=== PATIENT | female | born 1960 | race Caucasian/White ===

== ENCOUNTER 2020-01-15 09:45 | Emergency (ER) | payer MEDICARE, MEDICAID ==
[~2020-01-15] VITALS: Ht 170.2 cm; Wt 109.1 kg
[~2020-01-15 09:45] MED LIST: ALBU18HF2 INH; AMOX-422 PO; DIPH50CA37 PO; DIVA500T9 PO; LIDO1ADH67 TOP; OXYB5TAB16 PO; PALI6TAB PO; PROL2.5I IM; RIVA10TA PO; TRAM50TA2 PO
[2020-01-15 11:18] LABS: BASOPHILS # (AUTO) 0.1 X10'3 (0-0.2); BASOPHILS % (AUTO) 0.7 % (0-1); EOSINOPHILS # (AUTO) 0.1 X10'3 (0-0.9); EOSINOPHILS % (AUTO) 0.8 % (0-6); HEMATOCRIT 36.6 % (35.0-45.0); HEMOGLOBIN 12.4 g/dl (12.0-16.0); LYMPHOCYTES # (AUTO) 1.9 X10'3 (1.1-4.8); LYMPHOCYTES % (AUTO) 21.1 % (21-51); MEAN CORPUSCULAR HEMOGLOBIN 32.6 PG (27.0-31.0); MEAN CORPUSCULAR HGB CONC 33.8 g/dL (33.0-36.5); MEAN CORPUSCULAR VOLUME 96.4 FL (78-98); MEAN PLATELET VOLUME 8.7 FL (7.4-10.4); MONOCYTES # (AUTO) 1.2 X10'3 (0-0.9); MONOCYTES % (AUTO) 13.1 % (2-12); NEUTROPHILS # (AUTO) 5.6 X10'3 (1.8-7.7); NEUTROPHILS % (AUTO) 64.3 % (42-75); PLATELET COUNT 201 X10'3 (140-440); RED CELL DISTRIBUTION WIDTH 13.7 % (11.5-14.5); WHITE BLOOD COUNT 8.8 X10'3 (4.5-11.0)
--- NOTE | 2020-01-15 11:20 | NUR ---
pt asked for food. pt is redirectable but jumps from topic to topic. has moments of verbal outbursts and then moments of being quiet and calm. pt given yong cortés and a coloring page. pt has stated over and over she wants to go home and she needs to be gone by the for her daughter's birthday. also she is "supposed to have a nurse visit today".
[2020-01-15 11:27] LABS: CLARITY,URINE CLEAR (Clear); COLOR,URINE YELLOW (Yellow); GLUCOSE, URINE NEGATIVE (Neg); KETONES,URINE NEGATIVE (Neg); LEUKOCYTE ESTERASE ,URINE NEGATIVE (Neg); NITRITES, URINE NEGATIVE (Neg); OCCULT BLOOD,URINE NEGATIVE (Neg); PH,URINE 5.5 (4.8-8.0); PROTEIN,URINE NEGATIVE (Neg); UROBILINOGEN,URINE 0.2 E.U/dL (0.2-1.0)
[2020-01-15 11:28] LABS: UA COLLECTION TYPE CLN CATCH MIDSTREAM
[2020-01-15 11:36] LABS: ALANINE AMINOTRANSFERASE 13 U/L (12-78); ALBUMIN 3.3 G/DL (3.4-5.0); ALKALINE PHOSPHATASE 54 IU/L (46-116); ANION GAP 11 (8-16); ASPARTATE AMINO TRANSFERASE 11 U/L (10-37); BILIRUBIN,TOTAL 0.3 MG/DL (0.1-1.0); BLOOD UREA NITROGEN 26 MG/DL (7-18); BUN/CREATININE RATIO 14.3 (6.6-38.0); CALCIUM 8.7 MG/DL (8.5-10.1); CHLORIDE 99 MMOL/L (99-107); CREATININE 1.82 MG/DL (0.40-0.90); ETHANOL < 0.010 GM/DL (0.0-0.010); GLUCOSE 85 MG/DL (70-104); POTASSIUM 4.4 MMOL/L (3.5-5.1); SODIUM 134 MMOL/L (135-145); TOTAL CARBON DIOXIDE 23.7 MMOL/L (24-32); TOTAL PROTEIN 6.7 G/DL (6.4-8.2); eGFR 28 ML/MIN
[2020-01-15 11:46] LABS: URINE AMPHETAMINE SCREEN POSITIVE (Neg); URINE BARBITUATE SCREEN NEGATIVE (Neg); URINE BENZODIAZEPINES SCREEN NEGATIVE (Neg); URINE CANNABINOID SCREEN NEGATIVE (Neg); URINE COCAINE SCREEN NEGATIVE (Neg); URINE METHADONE SCREEN NEGATIVE (Neg); URINE OPIATE SCREEN NEGATIVE (Neg); URINE PHENCYCLIDINE SCREEN NEGATIVE (Neg)
--- NOTE | 2020-01-15 12:47 | NUR ---
pt has put on her makeup in room. using lipstick on her cheeks and lips.
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
[2020-01-15] MEDS ORDERED: nicotine 21mg patch - 24 hr TD ONE (14:30)
--- NOTE | 2020-01-15 14:37 | NUR ---
PT GIVEN A NEW BRIEF AND ASSISTED WITH PUTTING IT ON. PT IS UP AND DOWN IN HER ROOM. SHE TALKS VERY LOUDLY USING PROFANITY OFTEN.
--- NOTE | 2020-01-15 15:06 | NUR ---
[facility] HERE AND TALKING WITH PT
[2020-01-15] MEDS ORDERED: OLANZapine 5mg rapidly disint. tablet PO ONE (15:35)
[2020-01-15] MEDS ORDERED: LORazepam 2 mg/ml vial IM ONE ×2 (15:35→19:30)
[2020-01-15] MEDS ORDERED: PALI6TAB PO (15:48)
[2020-01-15] MEDS ORDERED: RIVA10TA PO (15:48)
[2020-01-15] MEDS ORDERED: ALBU18HF2 INH (15:48)
[2020-01-15] MEDS ORDERED: PROL2.5I IM (15:48)
[2020-01-15] MEDS ORDERED: OXYB5TAB16 PO (15:48)
[2020-01-15] MEDS ORDERED: DIVA500T9 PO (15:48)
--- NOTE | 2020-01-15 17:08 | NUR ---
PT UP TO THE BATHROOM AGAIN.
--- NOTE | 2020-01-15 17:22 | NUR ---
pt is more calm and not yelling when talking any more.
[2020-01-15] MEDS ORDERED: fluphenazine decanoate**IM** 25mg/ml inj. IM SCH (18:10)
--- NOTE | 2020-01-15 18:37 | NUR ---
the prolixin med is only taken every other sunday. med not given at this time.
--- NOTE | 2020-01-15 19:11 | NUR ---
pt has upper full dentures
--- NOTE | 2020-01-15 19:24 | NUR ---
pt is starting to yell again and now being verbally threatening to hurt staff by saying she will punch and kick them. pt is using profanity and saying she doesn't want to be told what to do and to stay in the bed. keeps asking for coffee but not giving the pt coffee at this time of day. pt also states she wants to go to sleep.
[2020-01-15] MEDS ORDERED: ziprasidone IM 20mg inj **IM only IM ONE (19:30)
[2020-01-15] MEDS ORDERED: diphenhydrAMINE 50 mg/ml inj IM ONE (19:30)
--- NOTE | 2020-01-15 21:21 | NUR ---
pt states she takes invega 6mg at night time. she has not had her dose today. she is also asking for crackers and broth to keep her from having leg cramps. pt encouraged to lower her voice as to not disturbe others nearby
[2020-01-15] MEDS: PALIPERIDONE 3 MG TAB.ER.24 PO SCH (21:40)
[2020-01-15] MEDS: divalproex sod 250mg ER (24-hour) tablet PO SCH (21:40)
[2020-01-15] MEDS ORDERED: quetiapine 100mg tablet PO ONE (23:03)
--- NOTE | 2020-01-15 23:04 | NUR ---
PT YELLING AND CURSING AT STAFF. SHE IS SPEAKING IN [place] INTERMITTANTLY. DR SEGOVIA MADE AWARE. TOMMY ORDERED TO HELP PT REST
--- NOTE | 2020-01-16 04:13 | NUR ---
pt woke up cursing at staff. she had an incontinenent episode while sleeping. she was given wipes for belinda care and given new scrubs. pt instructed to stay in bed.
[2020-01-16] MEDS: oxybutynin 5mg tablet PO SCH (07:41)
[2020-01-16] MEDS: rivaroxaban 10mg tablet PO SCH (07:41)
[2020-01-16] MEDS: divalproex sod 250mg ER (24-hour) tablet PO SCH ×3 (07:42→20:21)
--- NOTE | 2020-01-16 10:42 | NUR ---
assumed care while RN is on 15 min break
--- NOTE | 2020-01-16 11:34 | NUR ---
pt is resting in her room no concerns at this time
--- NOTE | 2020-01-16 12:00 | NUR ---
PT WALKING AROUND WITH HER WALKER
--- NOTE | 2020-01-16 13:00 | NUR ---
PT IS WALKING AROUND. TALKING WITH STAFF
--- NOTE | 2020-01-16 14:00 | NUR ---
PT SITTING ON HER BED DRINKING COFFEE
--- NOTE | 2020-01-16 15:00 | NUR ---
NO CONCERNS. PT IS WALKING AROUND TALKING WITH STAFF
--- NOTE | 2020-01-16 16:00 | NUR ---
PT IS SLEEPING
--- NOTE | 2020-01-16 17:00 | NUR ---
NO CONCERNS AT THIS TIME
--- NOTE | 2020-01-16 18:04 | NUR ---
PT IS RESTING IN HER ROOM. NO CONCERNS
[2020-01-16] MEDS ORDERED: nicotine 21mg patch - 24 hr TD ONE (19:00)
--- NOTE | 2020-01-16 20:07 | NUR ---
Pt. walking around the unit, yelling and screaming, with very labile mood. She goes from very pleasant to being agitated in rapid changing fashion. Distraction provided by staff, but pt. easily escalated. made aware, received orders for ativan 2mg PO, benadryl 50mg PO and haldol 5mg PO, in addition to her routine HS meds.
[2020-01-16] MEDS ORDERED: LORazepam 1 MG tablet PO ONE (20:10)
[2020-01-16] MEDS ORDERED: diphenhydrAMINE 25mg capsule PO ONE (20:10)
[2020-01-16] MEDS ORDERED: haloperidol 5mg tablet PO ONE (20:10)
[2020-01-16] MEDS: PALIPERIDONE 3 MG TAB.ER.24 PO SCH (20:22)
[2020-01-16] MEDS: nystatin 15 GM powder TP SCH (20:22)
[2020-01-16] MEDS ORDERED: quetiapine 100mg tablet PO SCH (21:00)
[2020-01-16] MEDS ORDERED: zolpidem 5mg tablet PO ONE (23:10)
--- NOTE | 2020-01-16 23:21 | NUR ---
Pt. requested "something for sleep." States that she took ambien 5mg at home. MD made aware. New order received to given x1 dose of ambien 5mg. Pt medicated with this med and quiet environment will be ensured.
--- NOTE | 2020-01-17 00:24 | NUR ---
Pt. used walker to go to the bathroom at this time. Supervision provided. Pt. requested juice/drink and was provided per her request. She states that the ambien has helped. She returned to bed and about to return to sleep at this time.
--- NOTE | 2020-01-17 01:28 | NUR ---
Pt. sleeping comfortably now. Even chest rise apparent.
--- NOTE | 2020-01-17 02:29 | NUR ---
Pt. utilized the bathroom x1 within the last hour. She resumed with sleep soon after. No s/s discomfort noted at this time.
--- NOTE | 2020-01-17 03:31 | NUR ---
Pt. continues to sleep. Appears to be comfortable. No concerns at this time.
--- NOTE | 2020-01-17 04:47 | NUR ---
Pt. continues to sleep.
--- NOTE | 2020-01-17 05:55 | NUR ---
Pt. soiled her bed/clothes. Assisted to the bathroom at this time for hygiene. Complete bed change done by staff.
--- NOTE | 2020-01-17 06:59 | NUR ---
pt asking about breakfast. gave estimate time on arrival, no distress noted. will continue to monitor.
[2020-01-17] MEDS: divalproex sod 250mg ER (24-hour) tablet PO SCH ×2 (07:55→13:49)
[2020-01-17] MEDS: rivaroxaban 10mg tablet PO SCH (07:55)
[2020-01-17] MEDS: nystatin 15 GM powder TP SCH ×2 (07:55→13:50)
[2020-01-17] MEDS ORDERED: nicotine 21mg patch - 24 hr TD SCH (08:00)
--- NOTE | 2020-01-17 09:03 | NUR ---
pt laying in bed no distress noted. will continue to monitor.
[2020-01-17] MEDS: oxybutynin 5mg tablet PO SCH (09:21)
--- NOTE | 2020-01-17 10:04 | NUR ---
pt sleeping comfortably in bed no distress noted,will cont to monitor.
--- NOTE | 2020-01-17 11:41 | NUR ---
pt sleeping at this time ,no distress noted ,RR unlabored and even ,will cont to monitor.
--- NOTE | 2020-01-17 12:05 | NUR ---
pt up in bed using restroom at this time.pt requested for coffee informed the size maker is not working ,pt stated she can have tea,alex tea made for pt .
--- NOTE | 2020-01-17 12:17 | NUR ---
pt up in bed sitting up on her walker using phone saying "i have really bad inscsion from c section and a colostomy bag .
--- NOTE | 2020-01-17 13:15 | NUR ---
pt screaming and shouting in hallway ,redirected to stay quiet as pt is making things worse as pt was aggravating the situation while bed 23 got aggressive and started kicking ,pt redirected to her room and now receving breathing tx,but pt still shouting and screaming while taking her breathing tx.
[2020-01-17] MEDS: albuterol 2.5 MG/3 ML nebule NEB PRN ×2 (13:16→18:59)
--- NOTE | 2020-01-17 13:54 | NUR ---
pt meds given and nystatin powder applied by the pt ,given warm blanket to the pt ,pt stated that she is going to sleep.
--- NOTE | 2020-01-17 14:43 | NUR ---
Assumed care of patient
--- NOTE | 2020-01-17 16:10 | NUR ---
Patient given warm prune juice to help with her constipation at her request.
--- NOTE | 2020-01-17 16:29 | NUR ---
[facility] called for pt updated face sheet ,will send it .p
[2020-01-17] MEDS ORDERED: traMADol 50MG tablet PO ONE (16:40)
--- NOTE | 2020-01-17 16:45 | NUR ---
Marielos banks in [facility] - 01/17/20 at [address] marshall
--- NOTE | 2020-01-17 16:53 | NUR ---
Pt screaming if she doesn't get a PRN she will leave
--- NOTE | 2020-01-17 16:54 | NUR ---
notified dr smith that pt is acting out hitting her foot on the side rails also stated that she is screaming and primary nurse want to have po meds orders to calm pt down,dr smith said she is busy with some other pt with high heart rate and she will see miss amaya later.notified primary nurse handsel rn.
--- NOTE | 2020-01-17 17:19 | NUR ---
Pt continues to talk to herself about moving out of town, cracking her back, and contacting her daughter
[2020-01-17 17:59] VITALS: BP 121/70
[2020-01-19] MEDS ORDERED: fluphenazine decanoate**IM** 25mg/ml inj. IM SCH (09:00)
[2020-01-20] MEDS ORDERED: PALI6TAB PO (09:42)
[2020-01-20] MEDS ORDERED: NICO-687 TD (09:42)
[2020-01-20] MEDS ORDERED: DIVA500T9 PO (09:42)
== END 2020-01-17 19:12 ==
LOC: ER 09:46
DX: F29 Unspecified psychosis not due to a substance or known physiological condition (principal); F98.9 Unspecified behavioral and emotional disorders with onset usually occurring in childhood and adolescence; F79 Unspecified intellectual disabilities; E66.01 Morbid (severe) obesity due to excess calories; Z79.899 Other long term (current) drug therapy; Z88.8 Allergy status to other drugs, medicaments and biological substances
CPT/HCPCS: 36415; 80053; 80305; 80320; 81003; 84443; 85025; 94640; 96372; 99285; J1200; J2060; J3486; Q0163; 94760

== ENCOUNTER 2020-03-22 22:27 | Emergency (ER) | payer MEDICARE, OTHER ==
[~2020-03-22] VITALS: Ht 172.7 cm; Wt 100.0 kg
[~2020-03-22 22:27] MED LIST changes: -AMOX-422 PO; -DIPH50CA37 PO; -LIDO1ADH67 TOP; +NICO-687 TD; -TRAM50TA2 PO
[2020-03-23 00:19] LABS: BASOPHILS % (AUTO) 0.6 % (0-1); EOSINOPHILS # (AUTO) 0.2 X10'3 (0-0.9); EOSINOPHILS % (AUTO) 2.7 % (0-6); HEMATOCRIT 31.4 % (35.0-45.0); LYMPHOCYTES % (AUTO) 33.8 % (21-51); MEAN CORPUSCULAR HEMOGLOBIN 33.6 PG (27.0-31.0); MEAN CORPUSCULAR HGB CONC 34.9 g/dL (33.0-36.5); MEAN CORPUSCULAR VOLUME 96.2 FL (78-98); MEAN PLATELET VOLUME 8.9 FL (7.4-10.4); MONOCYTES # (AUTO) 0.9 X10'3 (0-0.9); MONOCYTES % (AUTO) 14.1 % (2-12); NEUTROPHILS % (AUTO) 48.8 % (42-75); PLATELET COUNT 201 X10'3 (140-440); RED BLOOD COUNT 3.26 X10'6 (4.20-5.60); RED CELL DISTRIBUTION WIDTH 13.9 % (11.5-14.5); WHITE BLOOD COUNT 6.1 X10'3 (4.5-11.0)
[2020-03-23 00:32] LABS: ALBUMIN 2.6 G/DL (3.4-5.0); ANION GAP 7 (8-16); BILIRUBIN,TOTAL 0.2 MG/DL (0.1-1.0); BLOOD UREA NITROGEN 21 MG/DL (7-18); BUN/CREATININE RATIO 18.6 (6.6-38.0); CALCIUM 8.2 MG/DL (8.5-10.1); CHLORIDE 105 MMOL/L (99-107); CREATININE 1.13 MG/DL (0.40-0.90); GLUCOSE 94 MG/DL (70-104); POTASSIUM 4.3 MMOL/L (3.5-5.1); SODIUM 140 MMOL/L (135-145); TOTAL CARBON DIOXIDE 27.6 MMOL/L (24-32); TOTAL PROTEIN 5.7 G/DL (6.4-8.2); eGFR 49 ML/MIN
[2020-03-23 00:33] LABS: ALANINE AMINOTRANSFERASE 16 U/L (12-78); ALBUMIN/GLOBULIN RATIO 0.8 (1.1-1.5); ALKALINE PHOSPHATASE 56 IU/L (46-116); ASPARTATE AMINO TRANSFERASE 13 U/L (10-37); ETHANOL < 0.010 GM/DL (0.0-0.010)
--- NOTE | 2020-03-23 00:39 | NUR ---
CALLED DILLAN AND SPOKE WITH HER SHE IS A FRIEND OF THE PATIENTS BUT HAS NO INFORMATION ON WHO CARES FOR THE PATIENT. SHE SAID WE NEED TO CALL RECORDING STUDIO SET UP WORKER TO FIND OUT WHO CARES FOR THE PATIENT. SHE DID SAY THAT SHE WOULD COME PICK PT UP BUT CANNOT CARE FOR PT. ER MADE AWARE
[2020-03-23 01:34] LABS: CLARITY,URINE CLEAR (Clear); COLOR,URINE YELLOW (Yellow); GLUCOSE, URINE NEGATIVE (Neg); KETONES,URINE NEGATIVE (Neg); LEUKOCYTE ESTERASE ,URINE TRACE (Neg); NITRITES, URINE NEGATIVE (Neg); OCCULT BLOOD,URINE NEGATIVE (Neg); PH,URINE 6.5 (4.8-8.0); PROTEIN,URINE NEGATIVE (Neg); UROBILINOGEN,URINE 0.2 E.U/dL (0.2-1.0)
[2020-03-23 01:36] LABS: UA COLLECTION TYPE NON-SPECIFIED
[2020-03-23 01:46] LABS: URINE AMPHETAMINE SCREEN NEGATIVE (Neg); URINE BARBITUATE SCREEN NEGATIVE (Neg); URINE BENZODIAZEPINES SCREEN NEGATIVE (Neg); URINE CANNABINOID SCREEN NEGATIVE (Neg); URINE COCAINE SCREEN NEGATIVE (Neg); URINE METHADONE SCREEN NEGATIVE (Neg); URINE OPIATE SCREEN NEGATIVE (Neg); URINE PHENCYCLIDINE SCREEN NEGATIVE (Neg)
[2020-03-23 02:00] VITALS: BP 113/85
[2020-03-23 02:07] LABS: BACTERIA,URINE 1+ /HPF (Neg); RBC,URINE 0-2 /HPF (0-2); SQUAMOUS EPITHELIAL CELL,UR FEW /LPF (FEW)
== END 2020-03-23 03:59 | disposition home or self-care (01) ==
LOC: ER 22:28
DX: T14.8XXA Other injury of unspecified body region, initial encounter (principal); J44.9 Chronic obstructive pulmonary disease, unspecified; F17.200 Nicotine dependence, unspecified, uncomplicated; F15.90 Other stimulant use, unspecified, uncomplicated; Z72.89 Other problems related to lifestyle; Z88.8 Allergy status to other drugs, medicaments and biological substances; Z79.01 Long term (current) use of anticoagulants; Z79.899 Other long term (current) drug therapy; W19.XXXA Unspecified fall, initial encounter; Y93.89 Activity, other specified; Y92.89 Other specified places as the place of occurrence of the external cause; Y99.8 Other external cause status
CPT/HCPCS: 36415; 73030; 73564; 80053; 80305; 80320; 81001; 85025; 99284

== ENCOUNTER 2020-06-14 18:07 | Emergency (ER) | payer MEDICARE, MEDICAID ==
[~2020-06-14] VITALS: Ht 175.3 cm; Wt 125.0 kg
[2020-06-14 18:10] VITALS: BP 136/74
== END 2020-06-14 21:06 | disposition left against medical advice (07) ==
LOC: ER 18:08
DX: M25.561 Pain in right knee (principal); Z53.21 Procedure and treatment not carried out due to patient leaving prior to being seen by health care provider

== ENCOUNTER 2020-12-12 11:26 | Emergency (ER) | payer MEDICARE, MEDICAID ==
[~2020-12-12] VITALS: Ht 165.1 cm; Wt 90.9 kg
[2020-12-12] MEDS ORDERED: diphenhydrAMINE 50 mg/ml inj IM ONE (11:35)
[2020-12-12] MEDS ORDERED: LORazepam 2 mg/ml vial IM ONE (11:35)
[2020-12-12] MEDS ORDERED: haloperidol lactate 5mg/ml inj IM ONE (11:35)
--- NOTE | 2020-12-12 12:15 | NUR ---
Patient was angry and swinging at staff. RN started documentation in room computer but patient was so vulgar RN had to finish in the hallway. Patient called RN 'You rosendo khalil Mexican beaner...and on and on. Janice to monitor.
--- NOTE | 2020-12-12 12:30 | NUR ---
RN removed lower ext restraints and lab humberto her blood. Patient denies needing to urinate. RN gave patient ice water. Patient just 10 minutes prior had refused lab draw. Continue to [facility].
--- NOTE | 2020-12-12 12:58 | NUR ---
Patient's restraints were removed. Patient sleeping soundly. No distress observed. Continue to monitor.
[2020-12-12] MEDS ORDERED: OXYB10TA4 PO (13:16)
[2020-12-12] MEDS ORDERED: PALI234D IM (13:16)
[2020-12-12] MEDS ORDERED: FURO-150 PO (13:16)
[2020-12-12 13:20] LABS: ALANINE AMINOTRANSFERASE 28 U/L (12-78); ALBUMIN 3.7 G/DL (3.4-5.0); ALKALINE PHOSPHATASE 81 IU/L (46-116); ANION GAP 13 (8-16); ASPARTATE AMINO TRANSFERASE 22 U/L (10-37); BILIRUBIN,TOTAL 0.4 MG/DL (0.1-1.0); BLOOD UREA NITROGEN 34 MG/DL (7-18); BUN/CREATININE RATIO 14.7 (6.6-38.0); CALCIUM 8.9 MG/DL (8.5-10.1); CHLORIDE 99 MMOL/L (99-107); CREATININE 2.32 MG/DL (0.40-0.90); GLUCOSE 88 MG/DL (70-104); SODIUM 136 MMOL/L (135-145); TOTAL CARBON DIOXIDE 24.1 MMOL/L (24-32); TOTAL PROTEIN 7.3 G/DL (6.4-8.2); eGFR 21 ML/MIN
[2020-12-12 13:22] LABS: ACETAMINOPHEN < 2.0 UG/ML (10-30); ETHANOL < 0.010 GM/DL (0.0-0.010); VALPROATE < 3.0 UG/ML (50-100)
[2020-12-12 13:24] LABS: POTASSIUM 2.9 MMOL/L (3.5-5.1)
--- NOTE | 2020-12-12 13:25 | NUR ---
Rn observed a fungal infection in inguinal area. Slight on the right and a little worse on the left. RN advised RIVERA Uribe. Continue to monitor.
[2020-12-12 13:55] LABS: BASOPHILS % (AUTO) 0.7 % (0-1); EOSINOPHILS # (AUTO) 0.3 X10'3 (0-0.9); EOSINOPHILS % (AUTO) 3.7 % (0-6); HEMATOCRIT 34.5 % (35.0-45.0); HEMOGLOBIN 11.3 g/dl (12.0-16.0); LYMPHOCYTES # (AUTO) 1.7 X10'3 (1.1-4.8); LYMPHOCYTES % (AUTO) 23.8 % (21-51); MEAN CORPUSCULAR HEMOGLOBIN 30.7 PG (27.0-31.0); MEAN CORPUSCULAR HGB CONC 32.9 g/dL (33.0-36.5); MEAN CORPUSCULAR VOLUME 93.3 FL (78-98); MEAN PLATELET VOLUME 9.6 FL (7.4-10.4); MONOCYTES # (AUTO) 1.3 X10'3 (0-0.9); MONOCYTES % (AUTO) 17.7 % (2-12); NEUTROPHILS % (AUTO) 54.1 % (42-75); PLATELET COUNT 208 X10'3 (140-440); RED CELL DISTRIBUTION WIDTH 14.7 % (11.5-14.5); WHITE BLOOD COUNT 7.3 X10'3 (4.5-11.0)
--- NOTE | 2020-12-12 13:56 | NUR ---
Patient continues to sleep. No distress observed. Continue to monitor.
[2020-12-12] MEDS ORDERED: potassium Cl 20 mEq SR tablet PO ONE (14:00)
[2020-12-12] MEDS ORDERED: potassium Cl 10 mEq/100mL bag IV ONE (14:00)
[2020-12-12] MEDS ORDERED: normal saline 1000ml 1,000 ML IV ONE (14:00)
[2020-12-12] MEDS ORDERED: PROL2.5I IM (14:08)
--- NOTE | 2020-12-12 14:30 | NUR ---
RN attempting IV line. Patient appears dehydrated. Attempted 2 lines without success. Charge Nurse Denise attempted 2 lines without success. Noticed patient had urinated on herself. Patient sleeping heavily and snoring. Continue to monitor.
--- NOTE | 2020-12-12 15:20 | NUR ---
RN cleaned patient up and changed her linen. RN had to straight cath due to sedation. Patient dressed in clean gown and placed chucks underneath her with draw sheet. Continue to monitor.
[2020-12-12 15:45] LABS: CLARITY,URINE SLIGHTLY CLOUDY (Clear); COLOR,URINE STRAW (Yellow); GLUCOSE, URINE NEGATIVE (Neg); KETONES,URINE NEGATIVE (Neg); LEUKOCYTE ESTERASE ,URINE SMALL (Neg); NITRITES, URINE POSITIVE (Neg); OCCULT BLOOD,URINE NEGATIVE (Neg); PH,URINE 5.5 (4.8-8.0); PROTEIN,URINE NEGATIVE (Neg); UROBILINOGEN,URINE 0.2 E.U/dL (0.2-1.0)
--- NOTE | 2020-12-12 15:45 | NUR ---
IV line completed by MEGHA Shepard. Patient tolerated well. RN started K+ and normal saline. Patient tolerating with a little difficulty. Snoring but oxygen sat at 97%. Continue to monitor.
[2020-12-12 15:47] LABS: UA COLLECTION TYPE STRAIGHT CATH
[2020-12-12 15:51] LABS: BACTERIA,URINE 3+ /HPF (Neg); MUCUS STRANDS NONE SEEN /LPF (Neg); RBC,URINE 0-2 /HPF (0-2); SQUAMOUS EPITHELIAL CELL,UR FEW /LPF (FEW); WBC CLUMPS,URINE MODERATE /HPF (NEGATIVE); WBC,URINE 30-50 /HPF (0-4)
[2020-12-12 15:57] LABS: URINE AMPHETAMINE SCREEN POSITIVE (Neg); URINE BARBITUATE SCREEN NEGATIVE (Neg); URINE BENZODIAZEPINES SCREEN NEGATIVE (Neg); URINE CANNABINOID SCREEN NEGATIVE (Neg); URINE COCAINE SCREEN NEGATIVE (Neg); URINE METHADONE SCREEN NEGATIVE (Neg); URINE OPIATE SCREEN NEGATIVE (Neg); URINE PHENCYCLIDINE SCREEN NEGATIVE (Neg)
[2020-12-12] MEDS ORDERED: CefTRIAXone/D5W-Rocephin 1gm 50 ML IV ONE (16:15)
--- NOTE | 2020-12-12 16:40 | NUR ---
Dr Chilel evaluating patient.
[2020-12-12] MEDS ORDERED: ondansetron/PF 4mg/2ml inj IV PRN (16:55)
[2020-12-12] MEDS ORDERED: potassium Cl 40MEQ/1/2NS 520ml 520 ML IV PRN ×2 (16:55)
[2020-12-12] MEDS ORDERED: acetaminophen 325mg tablet PO PRN (16:55)
[2020-12-12] MEDS ORDERED: magnesium 2GM in 50ml NS 50 ML IV PRN (16:55)
[2020-12-12] MEDS ORDERED: magnesium hydroxide 30ml (MOM) UD suspension PO PRN (16:55)
[2020-12-12] MEDS ORDERED: magnesium Cl slow-release 64mg tablet PO PRN (16:55)
[2020-12-12] MEDS ORDERED: magnesium 4gm in 100ml NS 100 ML IV PRN (16:55)
[2020-12-12] MEDS ORDERED: mag hydrox/Alum hydrox/simeth 30ml oral suspension PO PRN (16:55)
[2020-12-12] MEDS ORDERED: potassium Cl 20 mEq SR tablet PO PRN ×2 (16:55)
[2020-12-12] MEDS ORDERED: LORazepam 2 mg/ml vial IV PRN (17:00)
[2020-12-12] MEDS ORDERED: haloperidol lactate 5mg/ml inj IM PRN (17:00)
[2020-12-12] MEDS: normal saline 1000ml 1,000 ML IV SCH (17:42)
[2020-12-12 17:56] LABS: CREATINE KINASE 293 U/L (26-192)
--- NOTE | 2020-12-12 18:17 | NUR ---
Patient's fluid is running. Patient is dry. No distress observed. Patient will wake up and mumble and go back to sleep. Patient has long HX of Bipolar d/o with meth use. Patient has UTI and low K+/dehydration. Patient was very dry on arrival and looks much better now. Patient pending bed in PCU. Patient is aware she is being admitted. Continue to [facility].
[2020-12-12] MEDS: K and/or MAG REPLACEMENT MC SCH (20:00)
[2020-12-12] MEDS: clotrimazole topical cream 15gm tube TP SCH (20:00)
[2020-12-12] MEDS ORDERED: furosemide 20MG tablet PO SCH (20:00)
[2020-12-12] MEDS ORDERED: POTASSIUM BICARB 20meq eff tab 20 MEQ TABLET.EFF PO ONE (20:15)
[2020-12-12] MEDS: heparin, porcine 5000 units/ml vial SQ SCH (20:43)
[2020-12-12] MEDS: oxybutynin 5mg tablet PO SCH (20:48)
--- NOTE | 2020-12-12 22:52 | NUR ---
patient was put on comode and patient had a bowel movement.
[2020-12-13] MEDS: normal saline 1000ml 1,000 ML IV SCH ×2 (02:53→12:55)
--- NOTE | 2020-12-13 07:00 | NUR ---
O/N rn floated down not comfortable taking MH assignments including this pt. Jeremiah Davila notified and PCU traveler rn will take her place.
[2020-12-13] MEDS: K and/or MAG REPLACEMENT MC SCH ×2 (08:00→20:00)
[2020-12-13] MEDS ORDERED: CefTRIAXone/D5W-Rocephin 1gm 50 ML IV SCH (08:00)
--- NOTE | 2020-12-13 09:00 | NUR ---
Assessed patient and assisted with care. patient in line of sight of staff at this time. patient comfortable will all needs met at this time
[2020-12-13 09:23] LABS: ANION GAP 11 (8-16); BLOOD UREA NITROGEN 25 MG/DL (7-18); BUN/CREATININE RATIO 19.8 (6.6-38.0); CALCIUM 8.7 MG/DL (8.5-10.1); CHLORIDE 103 MMOL/L (99-107); CREATININE 1.26 MG/DL (0.40-0.90); GLUCOSE 80 MG/DL (70-104); MAGNESIUM 1.7 MG/DL (1.5-2.4); SODIUM 137 MMOL/L (135-145); TOTAL CARBON DIOXIDE 23.3 MMOL/L (24-32); eGFR 43 ML/MIN
[2020-12-13] MEDS: heparin, porcine 5000 units/ml vial SQ SCH ×2 (09:59→22:07)
[2020-12-13] MEDS: clotrimazole topical cream 15gm tube TP SCH ×2 (10:00→20:00)
[2020-12-13] MEDS: oxybutynin 5mg tablet PO SCH ×2 (10:00→22:09)
--- NOTE | 2020-12-13 10:18 | NUR ---
Per [facility] pt can have food. Addendum: 12/13/20 at 1018 by LYDIA EC: [facility]
--- NOTE | 2020-12-13 10:21 | NUR ---
OJ provided; meal ordered
[2020-12-13 11:05] LABS: BASOPHILS % (AUTO) 0.8 % (0-1); EOSINOPHILS # (AUTO) 0.2 X10'3 (0-0.9); EOSINOPHILS % (AUTO) 4.1 % (0-6); HEMATOCRIT 42.2 % (35.0-45.0); HEMOGLOBIN 13.9 g/dl (12.0-16.0); LYMPHOCYTES # (AUTO) 0.9 X10'3 (1.1-4.8); LYMPHOCYTES % (AUTO) 17.1 % (21-51); MEAN CORPUSCULAR HEMOGLOBIN 31.1 PG (27.0-31.0); MEAN CORPUSCULAR VOLUME 94.2 FL (78-98); MEAN PLATELET VOLUME 9.8 FL (7.4-10.4); MONOCYTES # (AUTO) 0.4 X10'3 (0-0.9); MONOCYTES % (AUTO) 7.8 % (2-12); NEUTROPHILS # (AUTO) 3.9 X10'3 (1.8-7.7); NEUTROPHILS % (AUTO) 70.2 % (42-75); PLATELET COUNT 244 X10'3 (140-440); RED BLOOD COUNT 4.48 X10'6 (4.20-5.60); RED CELL DISTRIBUTION WIDTH 14.8 % (11.5-14.5); WHITE BLOOD COUNT 5.6 X10'3 (4.5-11.0)
--- NOTE | 2020-12-13 11:42 | NUR ---
[facility], Abdiel: He will place patient on 5150 hold, follow up with [facility] conservatorship, upon medical clearance.
--- NOTE | 2020-12-13 13:39 | NUR ---
PT'S FRIEND ALLYSON
--- NOTE | 2020-12-13 13:43 | NUR ---
PT'S NEIGHBOR DILLAN
--- NOTE | 2020-12-13 15:50 | NUR ---
PT REQUESTING FOOD. SO I BROUGHT HER A SANDWICH AND DECAF COFFEE.
--- NOTE | 2020-12-13 16:02 | NUR ---
PT TALKING ON THE PHONE WITH HER FRIEND TANK. HER PHONE NUMBER IS [phone].
--- NOTE | 2020-12-13 18:11 | NUR ---
PT'S SON, SLADE
--- NOTE | 2020-12-13 18:24 | NUR ---
PT MOVED FROM ER BED 9 TO OVERFLOW BED 23
[2020-12-13] MEDS ORDERED: lactobacillus rhamnosus 10,000 MMU CELLS/CAPSULE PO SCH (20:00)
[2020-12-13] MEDS ORDERED: LORazepam 1 MG tablet PO PRN (21:00)
[2020-12-13] MEDS ORDERED: temazepam 15mg capsule PO PRN (21:05)
[2020-12-13 23:03] VITALS: BP 112/79
[2020-12-13] MEDS ORDERED: CLOT15CR35 TOP (23:36)
[2020-12-13] MEDS ORDERED: TEMA15CA5 PO (23:36)
[2020-12-13] MEDS ORDERED: LACT1CAP26 PO (23:36)
== END 2020-12-13 23:14 ==
LOC: ER 11:26 → ED HOLD 16:52 → UNDOADMIN 16:52 → UNDODISIN 12-13 23:14
DX: E87.6 Hypokalemia (principal); N17.0 Acute kidney failure with tubular necrosis; F29 Unspecified psychosis not due to a substance or known physiological condition
CPT/HCPCS: 96365; 96367; 96368; 96372; 96375; 99285; J0696; J1200; J1630; J1644; J2060; J3480; J7030; 36415; 80048; 80053; 80164; 80305; 80320; 80329; 81001; 82550; 83735; 84443; 85025; 96361; G0378

== ENCOUNTER 2021-02-24 18:07 | Inpatient (IN) | payer MEDICARE, MEDICAID ==
[~2021-02-24] VITALS: Ht 172.7 cm; Wt 92.6 kg
[~2021-02-24 18:07] MED LIST changes: -ALBU18HF2 INH; +CLOT15CR35 TOP; +DIVA500T2 PO; -DIVA500T9 PO; +NICO-668 BC; +OXYB10TA4 PO; -OXYB5TAB16 PO; +PALI156D IM; -PALI6TAB PO; -PROL2.5I IM; -RIVA10TA PO; +RIVA20TA PO; +TEMA15CA5 PO
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
[2021-02-24] MEDS ORDERED: ALBU8HFA PO (19:31)
[2021-02-24] MEDS ORDERED: HYDR-3686 PO (19:31)
[2021-02-24] MEDS ORDERED: DIVA-76 PO (19:38)
[2021-02-24] MEDS ORDERED: FURO-150 PO (19:38)
[2021-02-24] MEDS ORDERED: TEMA15CA PO (19:38)
[2021-02-24] MEDS ORDERED: temazepam 15mg capsule PO PRN (20:00)
[2021-02-24] MEDS ORDERED: paliperidone palmitate 156 mg/ml inj.**IM only IM ONE (20:00)
[2021-02-24] MEDS: hydrOXYzine 25 MG tablet PO PRN (20:32)
[2021-02-24] MEDS: divalproex sodium 500mg tablet.DR PO SCH (20:32)
--- NOTE | 2021-02-24 20:46 | NUR ---
The patient was assisted up to the bathroom and she gave a urine sample. She ambulated with a walker
--- NOTE | 2021-02-24 21:03 | NUR ---
Lab is at the bedside drawing her labs
[2021-02-24 21:12] LABS: CLARITY,URINE CLEAR (Clear); COLOR,URINE YELLOW (Yellow); GLUCOSE, URINE NEGATIVE (Neg); KETONES,URINE NEGATIVE (Neg); LEUKOCYTE ESTERASE ,URINE TRACE (Neg); NITRITES, URINE NEGATIVE (Neg); OCCULT BLOOD,URINE NEGATIVE (Neg); PROTEIN,URINE NEGATIVE (Neg); UROBILINOGEN,URINE 0.2 E.U/dL (0.2-1.0)
[2021-02-24 21:25] LABS: URINE AMPHETAMINE SCREEN POSITIVE (Neg); URINE BARBITUATE SCREEN NEGATIVE (Neg); URINE BENZODIAZEPINES SCREEN NEGATIVE (Neg); URINE CANNABINOID SCREEN NEGATIVE (Neg); URINE COCAINE SCREEN NEGATIVE (Neg); URINE METHADONE SCREEN NEGATIVE (Neg); URINE OPIATE SCREEN NEGATIVE (Neg); URINE PHENCYCLIDINE SCREEN NEGATIVE (Neg)
[2021-02-24 21:29] LABS: ALANINE AMINOTRANSFERASE 16 U/L (12-78); ALBUMIN/GLOBULIN RATIO 0.9 (1.1-1.5); ALKALINE PHOSPHATASE 69 IU/L (46-116); ANION GAP 10 (8-16); ASPARTATE AMINO TRANSFERASE 14 U/L (10-37); BILIRUBIN,TOTAL 0.2 MG/DL (0.1-1.0); BLOOD UREA NITROGEN 34 MG/DL (7-18); BUN/CREATININE RATIO 15.6 (6.6-38.0); CALCIUM 8.3 MG/DL (8.5-10.1); CHLORIDE 102 MMOL/L (99-107); CREATININE 2.18 MG/DL (0.40-0.90); ETHANOL < 0.010 GM/DL (0.0-0.010); GLUCOSE 93 MG/DL (70-104); SODIUM 137 MMOL/L (135-145); TOTAL CARBON DIOXIDE 25.2 MMOL/L (24-32); TOTAL PROTEIN 6.3 G/DL (6.4-8.2); eGFR 23 ML/MIN
[2021-02-24 21:32] LABS: BASOPHILS % (AUTO) 0.3 % (0-1); EOSINOPHILS # (AUTO) 0.1 X10'3 (0-0.9); EOSINOPHILS % (AUTO) 1.2 % (0-6); HEMATOCRIT 36.2 % (35.0-45.0); HEMOGLOBIN 11.9 g/dl (12.0-16.0); LYMPHOCYTES # (AUTO) 1.6 X10'3 (1.1-4.8); LYMPHOCYTES % (AUTO) 22.6 % (21-51); MEAN CORPUSCULAR HEMOGLOBIN 29.9 PG (27.0-31.0); MEAN CORPUSCULAR HGB CONC 32.7 g/dL (33.0-36.5); MEAN CORPUSCULAR VOLUME 91.4 FL (78-98); MEAN PLATELET VOLUME 8.9 FL (7.4-10.4); MONOCYTES # (AUTO) 1.3 X10'3 (0-0.9); MONOCYTES % (AUTO) 18.9 % (2-12); PLATELET COUNT 161 X10'3 (140-440); RED BLOOD COUNT 3.96 X10'6 (4.20-5.60); RED CELL DISTRIBUTION WIDTH 16.3 % (11.5-14.5); WHITE BLOOD COUNT 7.1 X10'3 (4.5-11.0)
[2021-02-24 21:40] LABS: UA COLLECTION TYPE CLN CATCH MIDSTREAM
[2021-02-24 21:41] LABS: BACTERIA,URINE NONE SEEN /HPF (Neg); RBC,URINE NONE SEEN /HPF (0-2); SQUAMOUS EPITHELIAL CELL,UR NONE SEEN /LPF (FEW); WBC,URINE 0-4 /HPF (0-4)
--- NOTE | 2021-02-24 21:58 | NUR ---
Packet sent to [facility]
--- NOTE | 2021-02-24 22:30 | NUR ---
The patient appears to be sleeping
[2021-02-24] MEDS ORDERED: normal saline 1000ml 1,000 ML IV ONE ×2 (23:30)
--- NOTE | 2021-02-25 00:05 | NUR ---
The patient appears to be sleeping soundly. Did awaken briefly when IV started for IV fluids.
--- NOTE | 2021-02-25 01:59 | NUR ---
The patient appears to be sleeping
--- NOTE | 2021-02-25 04:00 | NUR ---
The patient appears to be sleeping
--- NOTE | 2021-02-25 04:41 | NUR ---
The patient up to use the bathroom after being incontinent of a large amount of urine. She is irritable and demanding at this time. She was assisted with personal hygiene and her bed linens were changed
--- NOTE | 2021-02-25 05:00 | NUR ---
The patient is whispering to herself and appears to be responding to internal stimuli
--- NOTE | 2021-02-25 07:00 | NUR ---
Received pt asleep in bed in no apparent distress.
[2021-02-25] MEDS: furosemide 20MG tablet PO SCH (08:21)
[2021-02-25] MEDS: oxybutynin 5mg tablet PO SCH ×2 (08:21→20:06)
--- NOTE | 2021-02-25 09:00 | NUR ---
Pt took am medications and ate breakfast. Pt up to the bathroom and yelled at tech when asked to leave the cordless phone at the nurse's station. Pt now sleeping peacefully in bed.
--- NOTE | 2021-02-25 10:22 | NUR ---
Thom Gómez Spoke with [facility] and pt received 234mg on February 14. Next due on 03/16.
--- NOTE | 2021-02-25 11:00 | NUR ---
Pt laying awake in bed, at times talking hostily to noone. Pt polite upon approach. [facility] called and stated they will be admitting today.
[2021-02-25] MEDS ORDERED: nicotine 21mg patch - 24 hr TD ONE (11:40)
[2021-02-25] MEDS ORDERED: nicotine 21mg patch - 24 hr TD SCH (11:40)
--- NOTE | 2021-02-25 13:00 | NUR ---
Pt up at bedside eating lunch. Pt has no complaints. [facility] called and has accepted pt pending discharge.
[2021-02-25] MEDS ORDERED: traZODone 50mg tablet PO PRN (13:20)
[2021-02-25] MEDS ORDERED: mag hydrox/Alum hydrox/simeth 30ml oral suspension PO PRN (13:20)
[2021-02-25] MEDS ORDERED: acetaminophen 325mg tablet PO PRN (13:20)
--- NOTE | 2021-02-25 15:00 | NUR ---
Pt sitting at bedside, quiet without complaints.
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
[2021-02-25 15:30] VITALS: BP 125/80
[2021-02-25] MEDS: NICOTINE POLACRILEX 2 MG LOZENGE BC PRN ×2 (17:00→19:32)
[2021-02-25] MEDS: LORazepam 1 MG tablet PO PRN (17:06)
[2021-02-25 19:00] VITALS: BP 93/63
[2021-02-25] MEDS ORDERED: haloperidol lactate 5mg/ml inj IM ONE (19:20)
[2021-02-25] MEDS ORDERED: LORazepam 2 mg/ml vial IM ONE (19:20)
[2021-02-25] MEDS ORDERED: diphenhydrAMINE 50 mg/ml inj IM ONE (19:20)
--- NOTE | 2021-02-25 19:24 | NUR ---
FIVE DAY NOTICE SERVED AT 19:15 AND FAXED TO CONSERVATOR. NOTICE FILED IN CHART. CLIENT GIVEN A COPY.
[2021-02-25] MEDS: hydrOXYzine 25 MG tablet PO PRN (19:27)
[2021-02-25] MEDS: nystatin 15 GM powder TP SCH (20:00)
[2021-02-25] MEDS: divalproex sodium 500mg tablet.DR PO SCH (20:06)
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
[2021-02-26 07:20] LABS: HEMOGLOBIN A1C 5.6 % (4.5-6.2)
[2021-02-26 07:33] LABS: CHOL/HDL RATIO 1.9 (0.00-4.99); CHOLESTEROL 98 MG/DL (0-200); HDL CHOLESTEROL 52 MG/DL (35-60); LDL CHOLESTEROL 31 MG/DL (50-100); TRIGLYCERIDES 25 MG/DL (20-135)
[2021-02-26 08:00] VITALS: BP 102/65
[2021-02-26] MEDS: oxybutynin 5mg tablet PO SCH ×2 (08:51→20:54)
[2021-02-26] MEDS: nicotine 21mg patch - 24 hr TD SCH (08:51)
[2021-02-26] MEDS: furosemide 20MG tablet PO SCH (08:51)
[2021-02-26] MEDS: nystatin 15 GM powder TP SCH ×2 (08:51→20:00)
[2021-02-26 13:21] LABS: ALBUMIN 2.5 G/DL (3.4-5.0); ANION GAP 10 (8-16); BLOOD UREA NITROGEN 34 MG/DL (7-18); BUN/CREATININE RATIO 28.1 (6.6-38.0); CALCIUM 8.1 MG/DL (8.5-10.1); CHLORIDE 106 MMOL/L (99-107); CREATININE 1.21 MG/DL (0.40-0.90); GLUCOSE 92 MG/DL (70-104); POTASSIUM 4.7 MMOL/L (3.5-5.1); SODIUM 143 MMOL/L (135-145); TOTAL CARBON DIOXIDE 26.9 MMOL/L (24-32); eGFR 45 ML/MIN
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
[2021-02-26] MEDS: LORazepam 1 MG tablet PO PRN (18:17)
[2021-02-26 19:00] VITALS: BP 93/65
--- NOTE | 2021-02-26 19:06 | NUR ---
Patient comes to nursing station in her wheelchair and requests a nicotine lozenge. When this senior copywriter delivered patient the nicotine lozenge the patient presented as angry and delusional. She expresses the belief that we are intentionally withholding the phone from her, etc, etc....
[2021-02-26] MEDS: NICOTINE POLACRILEX 2 MG LOZENGE BC PRN (19:15)
[2021-02-26] MEDS: divalproex sodium 500mg tablet.DR PO SCH (20:54)
[2021-02-26] MEDS: hydrOXYzine 25 MG tablet PO PRN (20:55)
[2021-02-26] MEDS ORDERED: saliva stimulant agent 45ml spray MM PRN (21:45)
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
[2021-02-27 08:00] VITALS: BP 109/85
[2021-02-27] MEDS: nicotine 21mg patch - 24 hr TD SCH (08:10)
[2021-02-27] MEDS: furosemide 20MG tablet PO SCH (08:10)
[2021-02-27] MEDS: oxybutynin 5mg tablet PO SCH ×2 (08:10→20:09)
[2021-02-27] MEDS: nystatin 15 GM powder TP SCH ×2 (08:11→20:17)
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
[2021-02-27 19:00] VITALS: BP 109/85
[2021-02-27] MEDS: divalproex sod 250mg ER (24-hour) tablet PO SCH (20:09)
[2021-02-27] MEDS: hydrOXYzine 25 MG tablet PO SCH (20:09)
[2021-02-27] MEDS: zolpidem 5mg tablet PO PRN (20:14)
[2021-02-27] MEDS: LORazepam 1 MG tablet PO PRN (20:14)
[2021-02-27] MEDS ORDERED: divalproex sodium 500mg tablet.DR PO SCH (21:00)
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
[2021-02-28] MEDS: furosemide 20MG tablet PO SCH (07:45)
[2021-02-28] MEDS: hydrOXYzine 25 MG tablet PO SCH ×3 (07:45→21:10)
[2021-02-28] MEDS: nicotine 21mg patch - 24 hr TD SCH (07:45)
[2021-02-28] MEDS: oxybutynin 5mg tablet PO SCH ×2 (07:45→21:10)
[2021-02-28] MEDS: nystatin 15 GM powder TP SCH ×2 (07:46→20:00)
[2021-02-28 08:00] VITALS: BP 114/66
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
[2021-02-28 19:54] VITALS: BP 112/57
[2021-02-28] MEDS: divalproex sod 250mg ER (24-hour) tablet PO SCH (21:10)
[2021-02-28] MEDS: magnesium hydroxide 30ml (MOM) UD suspension PO PRN (21:11)
[2021-02-28] MEDS: zolpidem 5mg tablet PO PRN (21:36)
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
[2021-03-01 07:30] VITALS: BP 100/64
[2021-03-01] MEDS: nystatin 15 GM powder TP SCH ×2 (08:00→20:00)
[2021-03-01] MEDS: furosemide 20MG tablet PO SCH (08:21)
[2021-03-01] MEDS: oxybutynin 5mg tablet PO SCH ×2 (08:22→20:56)
[2021-03-01] MEDS: hydrOXYzine 25 MG tablet PO SCH ×3 (08:22→20:55)
[2021-03-01] MEDS: nicotine 21mg patch - 24 hr TD SCH (08:25)
--- NOTE | 2021-03-01 09:07 | NUR ---
NAM administration: Called [facility]AD office and received information. Prolixin shot 02-22-21 and Invega 234mg shot given 02/14/21
--- NOTE | 2021-03-01 09:55 | NUR ---
Initial: Pt admit on a 5150 legal status as a gravely disabled adult d/t mental illness per H&P. Pt currently on a regular diet and eating well with mostly 100% PO intake. LBM 02/25, documented as constipated. Pt with PRN bowel care available however not documented to be given. D/w dietary to send prunes and prune juice with next meal to assist with bowel regularity. Will continue to follow and monitor need for further nutrition intervention. Recommendations: 1) Continue regular diet 2) Routine bowel care 3) Weekly scaled weights Addendum: 03/01/21 at [address] Amended: Links added.
[2021-03-01] MEDS: NICOTINE POLACRILEX 2 MG LOZENGE BC PRN (11:47)
[2021-03-01] MEDS: albuterol 2.5 MG/3 ML nebule NEB PRN (12:16)
[2021-03-01] MEDS: LORazepam 1 MG tablet PO PRN (14:42)
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
[2021-03-01 19:24] VITALS: BP 136/89
[2021-03-01] MEDS: zolpidem 5mg tablet PO PRN (20:55)
[2021-03-01] MEDS: divalproex sod 250mg ER (24-hour) tablet PO SCH (20:56)
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
[2021-03-02] MEDS: hydrOXYzine 25 MG tablet PO SCH ×3 (07:04→20:36)
[2021-03-02] MEDS: nicotine 21mg patch - 24 hr TD SCH (07:04)
[2021-03-02] MEDS: furosemide 20MG tablet PO SCH (07:04)
[2021-03-02] MEDS: oxybutynin 5mg tablet PO SCH ×2 (07:04→20:35)
[2021-03-02] MEDS: nystatin 15 GM powder TP SCH ×2 (07:05→20:36)
[2021-03-02 07:53] VITALS: BP 89/58
[2021-03-02] MEDS: acetaminophen 325mg tablet PO PRN ×2 (12:50→19:11)
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
[2021-03-02] MEDS: NICOTINE POLACRILEX 2 MG LOZENGE BC PRN (18:16)
[2021-03-02] MEDS: LORazepam 1 MG tablet PO PRN (19:14)
[2021-03-02] MEDS: albuterol 2.5 MG/3 ML nebule NEB PRN (19:35)
[2021-03-02 20:00] VITALS: BP 122/87
[2021-03-02] MEDS: divalproex sod 250mg ER (24-hour) tablet PO SCH (20:36)
[2021-03-02] MEDS ORDERED: rivaroxaban 20mg tablet PO ONE (21:15)
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
[2021-03-03 07:34] VITALS: BP 115/71
[2021-03-03 08:30] VITALS: BP 115/71
[2021-03-03] MEDS: hydrOXYzine 25 MG tablet PO SCH ×3 (08:39→21:02)
[2021-03-03] MEDS: oxybutynin 5mg tablet PO SCH ×2 (08:40→20:00)
[2021-03-03] MEDS: celeCOXIB 100mg capsule PO SCH (08:40)
[2021-03-03] MEDS: furosemide 20MG tablet PO SCH (08:40)
[2021-03-03] MEDS: nystatin/triamcinolone cream 15gm TP SCH ×2 (08:40→20:00)
[2021-03-03] MEDS: nicotine 21mg patch - 24 hr TD SCH (08:41)
[2021-03-03] MEDS: traMADol 50MG tablet PO PRN (08:45)
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
[2021-03-03] MEDS: LORazepam 1 MG tablet PO PRN (11:32)
[2021-03-03] MEDS: acetaminophen 325mg tablet PO PRN (12:25)
[2021-03-03] MEDS: NICOTINE POLACRILEX 2 MG LOZENGE BC PRN (14:36)
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
[2021-03-03] MEDS: rivaroxaban 20mg tablet PO SCH (17:34)
--- NOTE | 2021-03-03 17:39 | NUR ---
Pt. in room resting with lights off rise and fall of chest, responsive to verbal stimuli. Requesting to be woken up for dinner. No complaints or needs at this time.
[2021-03-03 19:18] VITALS: BP 122/75
[2021-03-03] MEDS: zolpidem 5mg tablet PO PRN (21:02)
[2021-03-03] MEDS: divalproex sod 250mg ER (24-hour) tablet PO SCH (21:02)
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
[2021-03-04 07:53] VITALS: BP 97/63
[2021-03-04] MEDS: furosemide 20MG tablet PO SCH (08:00)
[2021-03-04] MEDS: hydrOXYzine 25 MG tablet PO SCH ×3 (08:25→20:47)
[2021-03-04] MEDS: celeCOXIB 100mg capsule PO SCH (08:25)
[2021-03-04] MEDS: oxybutynin 5mg tablet PO SCH ×2 (08:25→20:47)
[2021-03-04] MEDS: acetaminophen 325mg tablet PO PRN ×2 (08:25→17:24)
[2021-03-04] MEDS: nicotine 21mg patch - 24 hr TD SCH (08:35)
[2021-03-04] MEDS: nystatin/triamcinolone cream 15gm TP SCH ×2 (10:11→20:47)
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
[2021-03-04] MEDS: traMADol 50MG tablet PO PRN (15:42)
[2021-03-04] MEDS: NICOTINE POLACRILEX 2 MG LOZENGE BC PRN (16:36)
[2021-03-04] MEDS: rivaroxaban 20mg tablet PO SCH (17:24)
[2021-03-04 19:37] VITALS: BP 112/64
[2021-03-04] MEDS: LORazepam 1 MG tablet PO PRN (20:47)
[2021-03-04] MEDS: divalproex sod 250mg ER (24-hour) tablet PO SCH (20:47)
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
[2021-03-05 08:00] VITALS: BP 143/87
[2021-03-05] MEDS: oxybutynin 5mg tablet PO SCH ×2 (08:11→21:08)
[2021-03-05] MEDS: furosemide 20MG tablet PO SCH (08:11)
[2021-03-05] MEDS: hydrOXYzine 25 MG tablet PO SCH ×3 (08:11→21:08)
[2021-03-05] MEDS: celeCOXIB 100mg capsule PO SCH (08:11)
[2021-03-05] MEDS: nystatin/triamcinolone cream 15gm TP SCH ×2 (08:11→21:08)
[2021-03-05] MEDS: acetaminophen 325mg tablet PO PRN (08:12)
[2021-03-05] MEDS: nicotine 21mg patch - 24 hr TD SCH (08:16)
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
[2021-03-05] MEDS: rivaroxaban 20mg tablet PO SCH (17:42)
[2021-03-05] MEDS: traMADol 50MG tablet PO PRN (19:07)
[2021-03-05 19:31] VITALS: BP 116/65
[2021-03-05] MEDS: LORazepam 1 MG tablet PO PRN (21:08)
[2021-03-05] MEDS: divalproex sod 250mg ER (24-hour) tablet PO SCH (21:11)
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
[2021-03-06 07:26] VITALS: BP 108/73
[2021-03-06] MEDS: celeCOXIB 100mg capsule PO SCH (08:37)
[2021-03-06] MEDS: hydrOXYzine 25 MG tablet PO SCH ×3 (08:37→20:17)
[2021-03-06] MEDS: oxybutynin 5mg tablet PO SCH ×2 (08:38→20:17)
[2021-03-06] MEDS: nicotine 21mg patch - 24 hr TD SCH (08:38)
[2021-03-06] MEDS: furosemide 20MG tablet PO SCH (08:38)
[2021-03-06] MEDS: nystatin/triamcinolone cream 15gm TP SCH ×2 (08:39→20:16)
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
[2021-03-06] MEDS: rivaroxaban 20mg tablet PO SCH (18:20)
[2021-03-06 19:16] VITALS: BP 94/61
[2021-03-06] MEDS: divalproex sod 250mg ER (24-hour) tablet PO SCH (20:18)
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
[2021-03-07 08:00] VITALS: BP 119/72
[2021-03-07] MEDS: furosemide 20MG tablet PO SCH (08:40)
[2021-03-07] MEDS: hydrOXYzine 25 MG tablet PO SCH ×3 (08:40→20:53)
[2021-03-07] MEDS: celeCOXIB 100mg capsule PO SCH (08:40)
[2021-03-07] MEDS: oxybutynin 5mg tablet PO SCH ×2 (08:40→20:56)
[2021-03-07] MEDS: nicotine 21mg patch - 24 hr TD SCH (08:41)
[2021-03-07] MEDS: nystatin/triamcinolone cream 15gm TP SCH ×2 (08:41→20:53)
[2021-03-07] MEDS: traMADol 50MG tablet PO PRN (08:48)
--- NOTE | 2021-03-07 12:08 | NUR ---
Reassessment: Pt PO 75-100% most meals meeting needs. LBM 9/ per EMR. No nutrition intervention at this time. Will continue to monitor. Recommendations: 1) Continue regular diet 2) Routine bowel care 3) Weekly scaled weights Addendum: 03/07/21 at [address] Amended: Links added.
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
[2021-03-07] MEDS: rivaroxaban 20mg tablet PO SCH (17:55)
[2021-03-07 19:19] VITALS: BP 95/58
[2021-03-07] MEDS: divalproex sod 250mg ER (24-hour) tablet PO SCH (20:53)
[2021-03-07] MEDS: zolpidem 5mg tablet PO PRN (21:50)
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
[2021-03-08 07:00] VITALS: BP 136/68
[2021-03-08] MEDS: celeCOXIB 100mg capsule PO SCH (07:46)
[2021-03-08] MEDS: oxybutynin 5mg tablet PO SCH ×2 (07:47→21:11)
[2021-03-08] MEDS: furosemide 20MG tablet PO SCH (07:47)
[2021-03-08] MEDS: hydrOXYzine 25 MG tablet PO SCH ×3 (07:47→21:11)
[2021-03-08] MEDS: nystatin/triamcinolone cream 15gm TP SCH ×2 (07:48→21:10)
[2021-03-08] MEDS: nicotine 21mg patch - 24 hr TD SCH (07:48)
[2021-03-08] MEDS ORDERED: fluphenazine decanoate**IM** 25mg/ml inj. IM ONE (15:15)
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
[2021-03-08] MEDS: rivaroxaban 20mg tablet PO SCH (17:28)
[2021-03-08 19:09] VITALS: BP 107/75
[2021-03-08] MEDS: divalproex sod 250mg ER (24-hour) tablet PO SCH (21:11)
[2021-03-08] MEDS: zolpidem 5mg tablet PO PRN (21:24)
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
[2021-03-09 07:00] VITALS: BP 83/46
[2021-03-09] MEDS: nystatin/triamcinolone cream 15gm TP SCH ×2 (08:00→20:00)
[2021-03-09] MEDS: nicotine 21mg patch - 24 hr TD SCH (08:24)
[2021-03-09] MEDS: oxybutynin 5mg tablet PO SCH ×2 (08:25→20:02)
[2021-03-09] MEDS: hydrOXYzine 25 MG tablet PO SCH ×3 (08:25→20:02)
[2021-03-09] MEDS: celeCOXIB 100mg capsule PO SCH (08:25)
[2021-03-09] MEDS: furosemide 20MG tablet PO SCH (08:25)
[2021-03-09] MEDS: rivaroxaban 20mg tablet PO SCH (17:36)
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
[2021-03-09] MEDS: divalproex sod 250mg ER (24-hour) tablet PO SCH (20:02)
[2021-03-09] MEDS: zolpidem 5mg tablet PO PRN (20:06)
[2021-03-09 20:19] VITALS: BP 96/59
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
[2021-03-10 07:17] VITALS: BP 101/62
[2021-03-10] MEDS: furosemide 20MG tablet PO SCH (08:14)
[2021-03-10] MEDS: hydrOXYzine 25 MG tablet PO SCH ×3 (08:14→20:08)
[2021-03-10] MEDS: oxybutynin 5mg tablet PO SCH ×2 (08:14→20:09)
[2021-03-10] MEDS: celeCOXIB 100mg capsule PO SCH (08:14)
[2021-03-10] MEDS: acetaminophen 325mg tablet PO PRN (08:15)
[2021-03-10] MEDS: nystatin 15 GM powder TP SCH ×2 (08:15→20:00)
[2021-03-10] MEDS: nicotine 21mg patch - 24 hr TD SCH (08:24)
[2021-03-10] MEDS: traMADol 50MG tablet PO PRN (10:08)
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
[2021-03-10] MEDS: rivaroxaban 20mg tablet PO SCH (17:49)
[2021-03-10 19:00] VITALS: BP 91/58
[2021-03-10] MEDS: zolpidem 5mg tablet PO PRN (20:09)
[2021-03-10] MEDS: divalproex sod 250mg ER (24-hour) tablet PO SCH (20:09)
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
[2021-03-11] MEDS: nystatin 15 GM powder TP SCH ×2 (08:23→20:00)
[2021-03-11] MEDS: hydrOXYzine 25 MG tablet PO SCH ×3 (08:23→20:29)
[2021-03-11] MEDS: oxybutynin 5mg tablet PO SCH ×2 (08:24→20:30)
[2021-03-11] MEDS: celeCOXIB 100mg capsule PO SCH (08:24)
[2021-03-11] MEDS: furosemide 20MG tablet PO SCH (08:24)
[2021-03-11] MEDS: traMADol 50MG tablet PO PRN (08:25)
[2021-03-11] MEDS: nicotine 21mg patch - 24 hr TD SCH (08:29)
[2021-03-11 08:31] VITALS: BP 110/68
--- NOTE | 2021-03-11 13:30 | NUR ---
PLACEMENT Sent placement packet to [place] office. HARITHA Renae
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
[2021-03-11] MEDS: rivaroxaban 20mg tablet PO SCH (17:47)
[2021-03-11 20:00] VITALS: BP 90/56
[2021-03-11] MEDS: zolpidem 5mg tablet PO PRN (20:29)
[2021-03-11] MEDS: divalproex sod 250mg ER (24-hour) tablet PO SCH (20:30)
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
[2021-03-12 07:47] VITALS: BP 86/49
[2021-03-12] MEDS: celeCOXIB 100mg capsule PO SCH (07:59)
[2021-03-12] MEDS: hydrOXYzine 25 MG tablet PO SCH ×3 (07:59→20:06)
[2021-03-12] MEDS: furosemide 20MG tablet PO SCH (07:59)
[2021-03-12] MEDS: oxybutynin 5mg tablet PO SCH ×2 (08:00→20:06)
[2021-03-12] MEDS: nicotine 21mg patch - 24 hr TD SCH (08:06)
[2021-03-12] MEDS: nystatin 15 GM powder TP SCH ×2 (08:09→20:09)
[2021-03-12] MEDS: traMADol 50MG tablet PO PRN ×2 (12:00→13:01)
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
[2021-03-12] MEDS: rivaroxaban 20mg tablet PO SCH (18:10)
[2021-03-12 20:00] VITALS: BP 97/51
[2021-03-12] MEDS: divalproex sod 250mg ER (24-hour) tablet PO SCH (20:06)
[2021-03-12] MEDS: zolpidem 5mg tablet PO PRN (20:07)
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
[2021-03-13 07:48] VITALS: BP 81/54
[2021-03-13] MEDS: oxybutynin 5mg tablet PO SCH ×2 (08:34→20:03)
[2021-03-13] MEDS: nicotine 21mg patch - 24 hr TD SCH (08:34)
[2021-03-13] MEDS: celeCOXIB 100mg capsule PO SCH (08:34)
[2021-03-13] MEDS: nystatin 15 GM powder TP SCH ×2 (08:34→20:00)
[2021-03-13] MEDS: furosemide 20MG tablet PO SCH (08:35)
[2021-03-13] MEDS: hydrOXYzine 25 MG tablet PO SCH ×3 (08:35→20:03)
[2021-03-13] MEDS: LORazepam 1 MG tablet PO PRN (09:51)
[2021-03-13] MEDS: acetaminophen 325mg tablet PO PRN (09:58)
[2021-03-13] MEDS: albuterol 2.5 MG/3 ML nebule NEB PRN (10:19)
[2021-03-13 10:39] LABS: BASOPHILS % (AUTO) 0.5 % (0-1); EOSINOPHILS # (AUTO) 0.2 X10'3 (0-0.9); EOSINOPHILS % (AUTO) 3.4 % (0-6); HEMATOCRIT 39.2 % (35.0-45.0); HEMOGLOBIN 12.9 g/dl (12.0-16.0); LYMPHOCYTES # (AUTO) 1.9 X10'3 (1.1-4.8); LYMPHOCYTES % (AUTO) 38.2 % (21-51); MEAN CORPUSCULAR HEMOGLOBIN 30.1 PG (27.0-31.0); MEAN CORPUSCULAR HGB CONC 32.9 g/dL (33.0-36.5); MEAN CORPUSCULAR VOLUME 91.6 FL (78-98); MEAN PLATELET VOLUME 9.1 FL (7.4-10.4); MONOCYTES # (AUTO) 0.5 X10'3 (0-0.9); MONOCYTES % (AUTO) 10.3 % (2-12); NEUTROPHILS # (AUTO) 2.4 X10'3 (1.8-7.7); NEUTROPHILS % (AUTO) 47.6 % (42-75); PLATELET COUNT 198 X10'3 (140-440); RED BLOOD COUNT 4.28 X10'6 (4.20-5.60)
[2021-03-13 10:57] LABS: ALANINE AMINOTRANSFERASE 8 U/L (12-78); ALBUMIN/GLOBULIN RATIO 0.9 (1.1-1.5); ALKALINE PHOSPHATASE 69 IU/L (46-116); ANION GAP 9 (8-16); ASPARTATE AMINO TRANSFERASE 6 U/L (10-37); BILIRUBIN,TOTAL 0.3 MG/DL (0.1-1.0); BLOOD UREA NITROGEN 38 MG/DL (7-18); BUN/CREATININE RATIO 22.8 (6.6-38.0); CALCIUM 8.6 MG/DL (8.5-10.1); CHLORIDE 107 MMOL/L (99-107); CREATININE 1.67 MG/DL (0.40-0.90); GLUCOSE 77 MG/DL (70-104); MAGNESIUM 1.4 MG/DL (1.5-2.4); PHOSPHORUS 3.3 MG/DL (2.3-4.5); POTASSIUM 4.5 MMOL/L (3.5-5.1); SODIUM 143 MMOL/L (135-145); TOTAL CARBON DIOXIDE 26.7 MMOL/L (24-32); TOTAL PROTEIN 6.2 G/DL (6.4-8.2); eGFR 31 ML/MIN
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
[2021-03-13] MEDS: rivaroxaban 20mg tablet PO SCH (18:09)
[2021-03-13 19:05] VITALS: BP 117/73
[2021-03-13] MEDS: divalproex sod 250mg ER (24-hour) tablet PO SCH (20:04)
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
[2021-03-14 07:50] VITALS: BP 97/58
[2021-03-14] MEDS: traMADol 50MG tablet PO PRN (07:57)
[2021-03-14] MEDS: oxybutynin 5mg tablet PO SCH ×2 (07:57→20:19)
[2021-03-14] MEDS: hydrOXYzine 25 MG tablet PO SCH ×3 (07:57→20:19)
[2021-03-14] MEDS: nystatin 15 GM powder TP SCH ×2 (08:00→20:00)
[2021-03-14] MEDS: magnesium oxide 400mg tablet PO SCH ×4 (09:22→23:53)
[2021-03-14] MEDS: nicotine 21mg patch - 24 hr TD SCH (09:24)
[2021-03-14 13:07] LABS: ALBUMIN 2.6 G/DL (3.4-5.0); ANION GAP 4 (8-16); BLOOD UREA NITROGEN 32 MG/DL (7-18); BUN/CREATININE RATIO 23.4 (6.6-38.0); CALCIUM 8.2 MG/DL (8.5-10.1); CHLORIDE 107 MMOL/L (99-107); CREATININE 1.37 MG/DL (0.40-0.90); GLUCOSE 87 MG/DL (70-104); POTASSIUM 5.4 MMOL/L (3.5-5.1); SODIUM 141 MMOL/L (135-145); TOTAL CARBON DIOXIDE 29.6 MMOL/L (24-32); eGFR 39 ML/MIN
--- NOTE | 2021-03-14 14:01 | NUR ---
Reassessment: Pt PO 75-100% avg most meals w/ occasional refusals though eating snacks as well; meeting needs. LBM 03/11 per EMR. No nutrition intervention at this time. Will continue to monitor. Recommendations: 1) Continue regular diet 2) Routine bowel care 3) Weekly scaled weights Addendum: 03/14/21 at [address] Amended: Links added.
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
[2021-03-14] MEDS: rivaroxaban 20mg tablet PO SCH (17:39)
[2021-03-14] MEDS: divalproex sod 250mg ER (24-hour) tablet PO SCH (20:18)
[2021-03-14] MEDS: zolpidem 5mg tablet PO PRN (20:28)
[2021-03-14 20:33] VITALS: BP 110/62
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
[2021-03-15 07:16] VITALS: BP 102/62
[2021-03-15] MEDS: nystatin 15 GM powder TP SCH ×3 (08:00→20:00)
[2021-03-15] MEDS: nicotine 21mg patch - 24 hr TD SCH (08:40)
[2021-03-15] MEDS: oxybutynin 5mg tablet PO SCH ×2 (08:40→20:08)
[2021-03-15] MEDS: magnesium oxide 400mg tablet PO SCH ×2 (08:40→16:11)
[2021-03-15] MEDS: hydrOXYzine 25 MG tablet PO SCH ×3 (08:40→20:09)
[2021-03-15] MEDS: traMADol 50MG tablet PO PRN (08:48)
[2021-03-15 09:06] LABS: ALBUMIN 2.4 G/DL (3.4-5.0); ANION GAP 7 (8-16); BLOOD UREA NITROGEN 31 MG/DL (7-18); BUN/CREATININE RATIO 21.7 (6.6-38.0); CALCIUM 8.2 MG/DL (8.5-10.1); CHLORIDE 106 MMOL/L (99-107); CREATININE 1.43 MG/DL (0.40-0.90); GLUCOSE 108 MG/DL (70-104); POTASSIUM 4.7 MMOL/L (3.5-5.1); SODIUM 142 MMOL/L (135-145); TOTAL CARBON DIOXIDE 28.9 MMOL/L (24-32); eGFR 37 ML/MIN
[2021-03-15] MEDS ORDERED: paliperidone palmitate inj 234 MG/1.5 ML SYRINGE IM ONE (15:45)
--- NOTE | 2021-03-15 16:36 | NUR ---
NAM administration: Invega shot given 03/16/21 per order. Right gluteal. Pt tolerated well.
[2021-03-15] MEDS: rivaroxaban 20mg tablet PO SCH (17:51)
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
[2021-03-15] MEDS: zolpidem 5mg tablet PO PRN (20:08)
[2021-03-15] MEDS: divalproex sod 250mg ER (24-hour) tablet PO SCH (20:10)
[2021-03-15 21:00] VITALS: BP 101/61
[2021-03-16 08:00] VITALS: BP 102/62
[2021-03-16] MEDS: nystatin 15 GM powder TP SCH ×2 (08:00→20:00)
[2021-03-16] MEDS: magnesium oxide 400mg tablet PO SCH ×3 (08:22→16:30)
[2021-03-16] MEDS: hydrOXYzine 25 MG tablet PO SCH ×3 (08:22→20:21)
[2021-03-16] MEDS: oxybutynin 5mg tablet PO SCH ×2 (08:22→20:21)
[2021-03-16] MEDS: nicotine 21mg patch - 24 hr TD SCH (08:26)
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
[2021-03-16] MEDS: rivaroxaban 20mg tablet PO SCH (17:57)
[2021-03-16] MEDS: divalproex sod 250mg ER (24-hour) tablet PO SCH (20:22)
[2021-03-16] MEDS: zolpidem 5mg tablet PO PRN (20:22)
[2021-03-16 20:47] VITALS: BP 96/61
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
[2021-03-17] MEDS: oxybutynin 5mg tablet PO SCH ×2 (07:35→23:04)
[2021-03-17] MEDS: hydrOXYzine 25 MG tablet PO SCH ×3 (07:35→23:04)
[2021-03-17] MEDS: magnesium oxide 400mg tablet PO SCH ×3 (07:35→16:27)
[2021-03-17] MEDS: nicotine 21mg patch - 24 hr TD SCH (07:35)
[2021-03-17 08:00] VITALS: BP 115/66
[2021-03-17] MEDS: nystatin 15 GM powder TP SCH ×2 (08:00→20:00)
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
[2021-03-17] MEDS: rivaroxaban 20mg tablet PO SCH (18:02)
[2021-03-17 19:00] VITALS: BP 89/51
[2021-03-17 21:01] VITALS: BP 89/51
[2021-03-17] MEDS: divalproex sod 250mg ER (24-hour) tablet PO SCH (23:04)
[2021-03-17] MEDS: zolpidem 5mg tablet PO PRN (23:04)
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
[2021-03-18 07:12] VITALS: BP 84/52
[2021-03-18] MEDS: hydrOXYzine 25 MG tablet PO SCH ×3 (07:25→20:02)
[2021-03-18] MEDS: magnesium oxide 400mg tablet PO SCH ×3 (07:25→15:43)
[2021-03-18] MEDS: oxybutynin 5mg tablet PO SCH ×2 (07:25→20:02)
[2021-03-18] MEDS: nicotine 21mg patch - 24 hr TD SCH (07:25)
[2021-03-18] MEDS: nystatin 15 GM powder TP SCH ×2 (07:59→20:02)
[2021-03-18] MEDS: traMADol 50MG tablet PO PRN (11:29)
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
[2021-03-18] MEDS: rivaroxaban 20mg tablet PO SCH (18:09)
[2021-03-18 19:00] VITALS: BP 87/53
[2021-03-18] MEDS: divalproex sod 250mg ER (24-hour) tablet PO SCH (20:02)
[2021-03-19] MEDS: magnesium oxide 400mg tablet PO SCH ×3 (01:34→16:56)
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
[2021-03-19 08:00] VITALS: BP 92/64
[2021-03-19] MEDS ORDERED: ESCITALOPRAM OXALATE 5 MG TABLET PO SCH (08:00)
[2021-03-19] MEDS ORDERED: protein shake 8oz. (237ml) PO SCH (08:00)
[2021-03-19] MEDS ORDERED: sertraline 25mg tablet PO SCH (08:00)
[2021-03-19] MEDS: hydrOXYzine 25 MG tablet PO SCH ×3 (08:12→20:23)
[2021-03-19] MEDS: oxybutynin 5mg tablet PO SCH ×2 (08:12→20:23)
[2021-03-19] MEDS: acetaminophen 325mg tablet PO PRN (08:13)
[2021-03-19] MEDS: nicotine 21mg patch - 24 hr TD SCH (08:17)
[2021-03-19] MEDS: nystatin 15 GM powder TP SCH ×2 (08:32→20:00)
[2021-03-19] MEDS: traMADol 50MG tablet PO PRN (09:46)
[2021-03-19] MEDS: LORazepam 1 MG tablet PO PRN (10:53)
[2021-03-19] MEDS: rivaroxaban 20mg tablet PO SCH (17:00)
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
[2021-03-19 20:00] VITALS: BP 90/60
[2021-03-19] MEDS: divalproex sod 250mg ER (24-hour) tablet PO SCH (20:23)
[2021-03-19] MEDS: zolpidem 5mg tablet PO PRN (20:26)
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
[2021-03-20 08:00] VITALS: BP 106/67
[2021-03-20] MEDS: nystatin 15 GM powder TP SCH ×2 (08:00→20:00)
[2021-03-20] MEDS: magnesium oxide 400mg tablet PO SCH ×3 (08:07→16:21)
[2021-03-20] MEDS: oxybutynin 5mg tablet PO SCH ×2 (08:07→21:02)
[2021-03-20] MEDS: nicotine 21mg patch - 24 hr TD SCH (08:07)
[2021-03-20] MEDS: hydrOXYzine 25 MG tablet PO SCH ×3 (08:07→21:02)
[2021-03-20] MEDS: traMADol 50MG tablet PO PRN (08:24)
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
[2021-03-20] MEDS: rivaroxaban 20mg tablet PO SCH (17:56)
[2021-03-20 20:00] VITALS: BP 97/54
[2021-03-20] MEDS: zolpidem 5mg tablet PO PRN (21:02)
[2021-03-20] MEDS: divalproex sod 125mg sprinkle cap PO SCH (21:02)
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
[2021-03-21 08:00] VITALS: BP 108/66
[2021-03-21] MEDS: nystatin 15 GM powder TP SCH ×2 (08:00→20:00)
[2021-03-21] MEDS: divalproex sod 125mg sprinkle cap PO SCH ×3 (08:53→20:22)
[2021-03-21] MEDS: oxybutynin 5mg tablet PO SCH ×2 (08:53→20:23)
[2021-03-21] MEDS: hydrOXYzine 25 MG tablet PO SCH ×3 (08:53→20:23)
[2021-03-21] MEDS: magnesium oxide 400mg tablet PO SCH ×3 (08:53→16:32)
[2021-03-21] MEDS: nicotine 21mg patch - 24 hr TD SCH (08:54)
[2021-03-21] MEDS: traMADol 50MG tablet PO PRN (12:24)
[2021-03-21] MEDS: LORazepam 1 MG tablet PO PRN (14:20)
--- NOTE | 2021-03-21 14:35 | NUR ---
F/u 03/21: Pt PO 75-100% avg most meals w/ occasional refusals at breakfasts though eating snacks as well; meeting needs. LBM 03/21 per EMR. No nutrition intervention at this time. Will continue to monitor. Recommendations: 1) Continue regular diet 2) Routine bowel care 3) Weekly scaled weights Addendum: 03/21/21 at [address] Amended: Links added.
[2021-03-21] MEDS: albuterol 2.5 MG/3 ML nebule NEB PRN (14:39)
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
[2021-03-21] MEDS: rivaroxaban 20mg tablet PO SCH (18:15)
[2021-03-21] MEDS: zolpidem 5mg tablet PO PRN (20:23)
[2021-03-21 20:29] VITALS: BP 102/75
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
[2021-03-22 07:30] VITALS: BP 100/56
[2021-03-22] MEDS: magnesium oxide 400mg tablet PO SCH ×3 (08:35→16:23)
[2021-03-22] MEDS: divalproex sod 125mg sprinkle cap PO SCH ×3 (08:35→21:07)
[2021-03-22] MEDS: hydrOXYzine 25 MG tablet PO SCH ×2 (08:35→13:05)
[2021-03-22] MEDS: oxybutynin 5mg tablet PO SCH ×2 (08:35→21:07)
[2021-03-22] MEDS: nicotine 21mg patch - 24 hr TD SCH (08:36)
[2021-03-22] MEDS: nystatin 15 GM powder TP SCH ×2 (08:45→20:00)
[2021-03-22] MEDS ORDERED: ESCITALOPRAM OXALATE 5 MG TABLET PO ONE (15:50)
[2021-03-22] MEDS ORDERED: hydrOXYzine 25 MG tablet PO PRN (15:50)
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
[2021-03-22] MEDS: rivaroxaban 20mg tablet PO SCH (18:00)
[2021-03-22 20:00] VITALS: BP 109/68
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
[2021-03-23 07:50] VITALS: BP 113/76
[2021-03-23] MEDS: magnesium oxide 400mg tablet PO SCH ×3 (07:58→16:03)
[2021-03-23] MEDS: divalproex sod 125mg sprinkle cap PO SCH ×3 (07:58→20:35)
[2021-03-23] MEDS: oxybutynin 5mg tablet PO SCH ×2 (07:58→20:35)
[2021-03-23] MEDS: ESCITALOPRAM OXALATE 5 MG TABLET PO SCH (07:58)
[2021-03-23] MEDS: nystatin 15 GM powder TP SCH ×2 (07:59→20:35)
[2021-03-23] MEDS: nicotine 21mg patch - 24 hr TD SCH (07:59)
[2021-03-23] MEDS: traMADol 50MG tablet PO PRN (09:31)
--- NOTE | 2021-03-23 11:57 | NUR ---
PLACEMENT Sent updated notes (03/11-03/22) to [facility] office. HARITHA Renae
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
[2021-03-23] MEDS: rivaroxaban 20mg tablet PO SCH (17:04)
[2021-03-23 19:36] VITALS: BP 95/57
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
[2021-03-24 07:42] VITALS: BP 81/54
[2021-03-24] MEDS: nystatin 15 GM powder TP SCH ×2 (08:00→20:44)
[2021-03-24] MEDS: magnesium oxide 400mg tablet PO SCH ×3 (08:43→15:48)
[2021-03-24] MEDS: ESCITALOPRAM OXALATE 5 MG TABLET PO SCH (08:43)
[2021-03-24] MEDS: oxybutynin 5mg tablet PO SCH ×2 (08:43→20:44)
[2021-03-24] MEDS: nicotine 21mg patch - 24 hr TD SCH (08:44)
[2021-03-24] MEDS: divalproex sod 125mg sprinkle cap PO SCH ×3 (08:44→20:44)
[2021-03-24 09:00] VITALS: BP 94/60
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
[2021-03-24] MEDS: rivaroxaban 20mg tablet PO SCH (18:00)
[2021-03-24 20:00] VITALS: BP 120/80
[2021-03-24] MEDS: traMADol 50MG tablet PO PRN (20:45)
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
[2021-03-25 07:37] VITALS: BP 92/52
[2021-03-25] MEDS: nicotine 21mg patch - 24 hr TD SCH (08:00)
[2021-03-25] MEDS: nystatin 15 GM powder TP SCH ×2 (08:00→20:00)
[2021-03-25] MEDS: magnesium oxide 400mg tablet PO SCH ×3 (09:59→16:28)
[2021-03-25] MEDS: divalproex sod 125mg sprinkle cap PO SCH ×3 (09:59→20:34)
[2021-03-25] MEDS: ESCITALOPRAM OXALATE 5 MG TABLET PO SCH (09:59)
[2021-03-25] MEDS: oxybutynin 5mg tablet PO SCH ×2 (09:59→20:34)
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
[2021-03-25] MEDS: rivaroxaban 20mg tablet PO SCH (18:09)
[2021-03-25 19:30] VITALS: BP 97/64
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
[2021-03-26 07:33] VITALS: BP 80/45
[2021-03-26 08:00] VITALS: BP 88/60
[2021-03-26] MEDS: ESCITALOPRAM OXALATE 5 MG TABLET PO SCH (09:06)
[2021-03-26] MEDS: divalproex sod 125mg sprinkle cap PO SCH ×3 (09:06→20:42)
[2021-03-26] MEDS: nicotine 21mg patch - 24 hr TD SCH (09:06)
[2021-03-26] MEDS: magnesium oxide 400mg tablet PO SCH ×3 (09:06→15:00)
[2021-03-26] MEDS: oxybutynin 5mg tablet PO SCH ×2 (09:06→20:42)
[2021-03-26] MEDS: nystatin 15 GM powder TP SCH ×2 (09:07→20:42)
[2021-03-26] MEDS: traMADol 50MG tablet PO PRN ×2 (09:19→20:43)
[2021-03-26 09:30] VITALS: BP 92/60
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
[2021-03-26] MEDS: rivaroxaban 20mg tablet PO SCH (17:55)
[2021-03-26 19:49] VITALS: BP 62/32
[2021-03-26 19:54] VITALS: BP 92/55
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
[2021-03-27 07:29] VITALS: BP 76/44
[2021-03-27] MEDS: ESCITALOPRAM OXALATE 5 MG TABLET PO SCH (08:51)
[2021-03-27] MEDS: magnesium oxide 400mg tablet PO SCH ×3 (08:51→16:38)
[2021-03-27] MEDS: divalproex sod 125mg sprinkle cap PO SCH ×3 (08:51→20:32)
[2021-03-27] MEDS: oxybutynin 5mg tablet PO SCH ×2 (08:52→20:32)
[2021-03-27] MEDS: nicotine 21mg patch - 24 hr TD SCH (08:52)
[2021-03-27] MEDS: nystatin 15 GM powder TP SCH ×2 (08:55→20:00)
[2021-03-27 11:00] VITALS: BP 80/62
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
[2021-03-27] MEDS: rivaroxaban 20mg tablet PO SCH (18:05)
[2021-03-27 19:48] VITALS: BP 95/64
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
[2021-03-28 07:44] VITALS: BP 107/65
[2021-03-28] MEDS: magnesium oxide 400mg tablet PO SCH ×3 (08:38→16:32)
[2021-03-28] MEDS: oxybutynin 5mg tablet PO SCH ×2 (08:38→20:27)
[2021-03-28] MEDS: ESCITALOPRAM OXALATE 5 MG TABLET PO SCH (08:38)
[2021-03-28] MEDS: divalproex sod 125mg sprinkle cap PO SCH ×3 (08:38→20:31)
[2021-03-28] MEDS: nicotine 21mg patch - 24 hr TD SCH (08:39)
[2021-03-28] MEDS: nystatin 15 GM powder TP SCH ×2 (08:46→20:00)
[2021-03-28] MEDS: traMADol 50MG tablet PO PRN (12:31)
--- NOTE | 2021-03-28 15:05 | NUR ---
F/u 03/28: Pt PO 75-100% avg most meals w/ occasional refusals at breakfasts though eating snacks as well; meeting needs. LBM 03/26 per EMR. No nutrition intervention at this time. Will continue to monitor. Recommendations: 1) Continue regular diet 2) Routine bowel care 3) Weekly scaled weights Addendum: 03/28/21 at [address] Amended: Links added.
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
[2021-03-28] MEDS: rivaroxaban 20mg tablet PO SCH (17:48)
[2021-03-28 20:13] VITALS: BP 95/59
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
[2021-03-29 07:54] VITALS: BP 124/65
[2021-03-29] MEDS: divalproex sod 125mg sprinkle cap PO SCH ×3 (08:00→20:45)
[2021-03-29] MEDS ORDERED: divalproex 250mg tablet, delayed-release PO ONE (09:00)
[2021-03-29] MEDS: oxybutynin 5mg tablet PO SCH ×2 (09:10→20:44)
[2021-03-29] MEDS: magnesium oxide 400mg tablet PO SCH ×3 (09:10→16:41)
[2021-03-29] MEDS: ESCITALOPRAM OXALATE 5 MG TABLET PO SCH (09:10)
[2021-03-29] MEDS: nicotine 21mg patch - 24 hr TD SCH (09:11)
[2021-03-29] MEDS: traMADol 50MG tablet PO PRN (09:17)
[2021-03-29] MEDS: nystatin 15 GM powder TP SCH ×2 (09:34→20:45)
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
[2021-03-29] MEDS: rivaroxaban 20mg tablet PO SCH (17:55)
[2021-03-29 19:17] VITALS: BP 120/71
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
[2021-03-30 07:50] VITALS: BP 95/67
[2021-03-30] MEDS: nicotine 21mg patch - 24 hr TD SCH (08:00)
[2021-03-30] MEDS: nystatin 15 GM powder TP SCH ×2 (08:00→20:27)
[2021-03-30] MEDS: ESCITALOPRAM OXALATE 5 MG TABLET PO SCH (08:54)
[2021-03-30] MEDS: oxybutynin 5mg tablet PO SCH ×2 (08:54→20:22)
[2021-03-30] MEDS: magnesium oxide 400mg tablet PO SCH ×3 (08:54→16:20)
[2021-03-30] MEDS: divalproex sodium 500mg tablet.DR PO SCH ×2 (09:00→20:23)
--- NOTE | 2021-03-30 13:02 | NUR ---
PLACEMENT Sent updated notes to BETHEL office (03/23-03/29). HARITHA Renae
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
[2021-03-30] MEDS: rivaroxaban 20mg tablet PO SCH (18:05)
[2021-03-30 19:26] VITALS: BP 104/69
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
[2021-03-31 07:00] VITALS: BP 78/55
[2021-03-31 09:00] VITALS: BP 110/60
[2021-03-31] MEDS: nystatin 15 GM powder TP SCH ×2 (09:06→20:00)
[2021-03-31] MEDS: oxybutynin 5mg tablet PO SCH ×2 (09:06→20:35)
[2021-03-31] MEDS: nicotine 21mg patch - 24 hr TD SCH (09:06)
[2021-03-31] MEDS: divalproex sodium 500mg tablet.DR PO SCH ×2 (09:06→20:35)
[2021-03-31] MEDS: ESCITALOPRAM OXALATE 5 MG TABLET PO SCH (09:06)
[2021-03-31] MEDS: magnesium oxide 400mg tablet PO SCH ×4 (09:06→20:35)
[2021-03-31] MEDS: traMADol 50MG tablet PO PRN (09:07)
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
[2021-03-31] MEDS: rivaroxaban 20mg tablet PO SCH (18:03)
[2021-03-31 19:00] VITALS: BP 106/63
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
[2021-04-01 08:00] VITALS: BP 95/62
[2021-04-01] MEDS: divalproex sodium 500mg tablet.DR PO SCH ×2 (08:44→20:34)
[2021-04-01] MEDS: ESCITALOPRAM OXALATE 5 MG TABLET PO SCH (08:44)
[2021-04-01] MEDS: oxybutynin 5mg tablet PO SCH ×2 (08:44→20:34)
[2021-04-01] MEDS: magnesium oxide 400mg tablet PO SCH ×3 (08:45→20:34)
[2021-04-01] MEDS: nicotine 21mg patch - 24 hr TD SCH (08:46)
[2021-04-01] MEDS: traMADol 50MG tablet PO PRN (08:48)
[2021-04-01] MEDS: loperamide 2mg capsule PO PRN (10:35)
[2021-04-01 11:10] VITALS: BP_SYST 103; BP_SYST 122; BP_SYST 88; BP_DIAS 63; BP_DIAS 70; BP_DIAS 71
[2021-04-01] MEDS: nystatin 15 GM powder TP SCH ×2 (12:50→20:00)
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
[2021-04-01] MEDS: protein shake 8oz. (237ml) PO SCH (17:00)
[2021-04-01] MEDS: rivaroxaban 20mg tablet PO SCH (18:02)
[2021-04-01 19:00] VITALS: BP 117/59
[2021-04-01 19:48] LABS: ALANINE AMINOTRANSFERASE 7 U/L (12-78); ALBUMIN 2.3 G/DL (3.4-5.0); ALBUMIN/GLOBULIN RATIO 0.7 (1.1-1.5); ALKALINE PHOSPHATASE 60 IU/L (46-116); ANION GAP 7 (8-16); ASPARTATE AMINO TRANSFERASE 5 U/L (10-37); BILIRUBIN,TOTAL 0.1 MG/DL (0.1-1.0); BLOOD UREA NITROGEN 19 MG/DL (7-18); BUN/CREATININE RATIO 14.7 (6.6-38.0); CALCIUM 7.6 MG/DL (8.5-10.1); CHLORIDE 101 MMOL/L (99-107); CREATININE 1.29 MG/DL (0.40-0.90); GLUCOSE 88 MG/DL (70-104); POTASSIUM 4.2 MMOL/L (3.5-5.1); SODIUM 137 MMOL/L (135-145); TOTAL CARBON DIOXIDE 28.8 MMOL/L (24-32); TOTAL PROTEIN 5.6 G/DL (6.4-8.2); eGFR 42 ML/MIN
[2021-04-01 21:59] VITALS: BP_SYST 117; BP_SYST 120; BP_SYST 97; BP_DIAS 59; BP_DIAS 73; BP_DIAS 83
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
[2021-04-02 08:00] VITALS: BP 97/58
[2021-04-02] MEDS: divalproex sodium 500mg tablet.DR PO SCH ×2 (09:12→20:43)
[2021-04-02] MEDS: magnesium oxide 400mg tablet PO SCH ×3 (09:12→20:43)
[2021-04-02] MEDS: nystatin 15 GM powder TP SCH ×2 (09:12→20:00)
[2021-04-02] MEDS: oxybutynin 5mg tablet PO SCH ×2 (09:12→20:43)
[2021-04-02] MEDS: sertraline 50mg tablet PO SCH (09:12)
[2021-04-02] MEDS: nicotine 21mg patch - 24 hr TD SCH (09:13)
[2021-04-02] MEDS: traMADol 50MG tablet PO PRN (10:27)
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
[2021-04-02] MEDS: protein shake 8oz. (237ml) PO SCH (17:00)
[2021-04-02] MEDS: rivaroxaban 20mg tablet PO SCH (18:05)
[2021-04-02 19:00] VITALS: BP 103/63
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
[2021-04-03 08:00] VITALS: BP 106/55
[2021-04-03] MEDS: divalproex sodium 500mg tablet.DR PO SCH ×2 (08:42→20:45)
[2021-04-03] MEDS: sertraline 50mg tablet PO SCH ×2 (08:42→20:43)
[2021-04-03] MEDS: oxybutynin 5mg tablet PO SCH ×2 (08:42→20:43)
[2021-04-03] MEDS: magnesium oxide 400mg tablet PO SCH ×3 (08:42→20:43)
[2021-04-03] MEDS: nicotine 21mg patch - 24 hr TD SCH (08:43)
[2021-04-03] MEDS: nystatin 15 GM powder TP SCH ×2 (08:43→20:00)
[2021-04-03] MEDS: traMADol 50MG tablet PO PRN (08:56)
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
[2021-04-03] MEDS: rivaroxaban 20mg tablet PO SCH (17:47)
[2021-04-03] MEDS: protein shake 8oz. (237ml) PO SCH (17:47)
[2021-04-03 20:08] VITALS: BP 98/54
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
[2021-04-04 07:33] VITALS: BP 103/58
[2021-04-04] MEDS: nystatin 15 GM powder TP SCH ×2 (08:19→20:00)
[2021-04-04] MEDS: divalproex sodium 500mg tablet.DR PO SCH ×2 (08:19→20:26)
[2021-04-04] MEDS: oxybutynin 5mg tablet PO SCH ×2 (08:19→20:26)
[2021-04-04] MEDS: magnesium oxide 400mg tablet PO SCH ×3 (08:19→20:26)
[2021-04-04] MEDS: nicotine 21mg patch - 24 hr TD SCH (08:21)
--- NOTE | 2021-04-04 14:28 | NUR ---
F/u 04/04: Pt PO 75-100% avg most meals w/ occasional refusals at breakfasts though eating snacks as well; meeting needs. Per documentation, PA ordered for pt to have protein supplement once per day, now receiving Shake w/ dinner. LBM 04/02 per EMR. No nutrition intervention at this time. Will continue to monitor. Recommendations: 1) Continue regular diet 2) Shake once daily per PA order 3) Routine bowel care 4) Weekly scaled weights Addendum: 04/04/21 at [address] Amended: Links added.
[2021-04-04] MEDS: protein shake 8oz. (237ml) PO SCH (17:00)
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
[2021-04-04] MEDS: rivaroxaban 20mg tablet PO SCH (17:34)
[2021-04-04 19:49] VITALS: BP 94/58
[2021-04-04] MEDS: sertraline 50mg tablet PO SCH (20:26)
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
[2021-04-05 08:00] VITALS: BP 130/88
[2021-04-05] MEDS: divalproex sodium 500mg tablet.DR PO SCH ×2 (08:10→20:29)
[2021-04-05] MEDS: magnesium oxide 400mg tablet PO SCH ×3 (08:11→20:29)
[2021-04-05] MEDS: oxybutynin 5mg tablet PO SCH ×2 (08:11→20:29)
[2021-04-05] MEDS: nicotine 21mg patch - 24 hr TD SCH (08:15)
[2021-04-05] MEDS: nystatin 15 GM powder TP SCH ×2 (08:15→20:00)
[2021-04-05] MEDS: LORazepam 1 MG tablet PO PRN (16:24)
[2021-04-05] MEDS: protein shake 8oz. (237ml) PO SCH (17:00)
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
[2021-04-05] MEDS: rivaroxaban 20mg tablet PO SCH (17:43)
[2021-04-05 19:00] VITALS: BP 99/61
[2021-04-05] MEDS: sertraline 50mg tablet PO SCH (20:29)
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
[2021-04-06] MEDS: nicotine 21mg patch - 24 hr TD SCH (07:26)
[2021-04-06] MEDS: divalproex sodium 500mg tablet.DR PO SCH ×2 (07:26→20:08)
[2021-04-06] MEDS: oxybutynin 5mg tablet PO SCH ×2 (07:26→20:08)
[2021-04-06] MEDS: nystatin 15 GM powder TP SCH ×2 (07:26→20:00)
[2021-04-06] MEDS: magnesium oxide 400mg tablet PO SCH ×3 (07:26→20:08)
[2021-04-06 07:42] VITALS: BP 93/62
--- NOTE | 2021-04-06 12:46 | NUR ---
PLACEMENT UPDATE Chichi's packet is currently being reviewed by Luis. HARITHA Renae
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
[2021-04-06] MEDS: rivaroxaban 20mg tablet PO SCH (17:54)
[2021-04-06] MEDS: protein shake 8oz. (237ml) PO SCH (17:54)
[2021-04-06 19:34] VITALS: BP 95/68
[2021-04-06] MEDS: sertraline 50mg tablet PO SCH (20:08)
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
[2021-04-07 07:29] VITALS: BP 98/48
[2021-04-07 08:00] VITALS: BP 98/62
[2021-04-07] MEDS: nystatin 15 GM powder TP SCH ×2 (08:46→20:11)
[2021-04-07] MEDS: oxybutynin 5mg tablet PO SCH ×2 (08:46→20:11)
[2021-04-07] MEDS: divalproex sodium 500mg tablet.DR PO SCH ×2 (08:46→20:10)
[2021-04-07] MEDS: magnesium oxide 400mg tablet PO SCH ×3 (08:46→20:11)
[2021-04-07] MEDS: nicotine 21mg patch - 24 hr TD SCH (08:47)
--- NOTE | 2021-04-07 12:39 | NUR ---
PLACEMENT Sent updated notes (03/23-04/06) to [facility] office for placement purposes. HARITHA Renae
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
[2021-04-07] MEDS: protein shake 8oz. (237ml) PO SCH (17:58)
[2021-04-07] MEDS: rivaroxaban 20mg tablet PO SCH (17:59)
[2021-04-07 19:00] VITALS: BP 103/68
[2021-04-07] MEDS: traZODone 50mg tablet PO PRN (20:11)
[2021-04-07] MEDS: sertraline 50mg tablet PO SCH (20:44)
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
[2021-04-08 07:43] VITALS: BP 110/60
[2021-04-08 08:00] VITALS: BP 110/60
[2021-04-08] MEDS: divalproex sodium 500mg tablet.DR PO SCH ×2 (08:15→21:21)
[2021-04-08] MEDS: magnesium oxide 400mg tablet PO SCH ×3 (08:15→21:21)
[2021-04-08] MEDS: nicotine 21mg patch - 24 hr TD SCH (08:15)
[2021-04-08] MEDS: oxybutynin 5mg tablet PO SCH ×2 (08:15→21:21)
[2021-04-08] MEDS: nystatin 15 GM powder TP SCH ×2 (08:42→21:23)
[2021-04-08] MEDS: protein shake 8oz. (237ml) PO SCH (17:00)
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
[2021-04-08] MEDS: rivaroxaban 20mg tablet PO SCH (17:48)
[2021-04-08 19:00] VITALS: BP 98/67
[2021-04-08] MEDS: sertraline 50mg tablet PO SCH (21:21)
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
[2021-04-09 08:00] VITALS: BP 92/55
[2021-04-09 08:33] VITALS: BP 86/55
[2021-04-09] MEDS: magnesium oxide 400mg tablet PO SCH ×3 (08:37→20:01)
[2021-04-09] MEDS: nicotine 21mg patch - 24 hr TD SCH (08:37)
[2021-04-09] MEDS: divalproex sodium 500mg tablet.DR PO SCH ×2 (08:37→19:25)
[2021-04-09] MEDS: oxybutynin 5mg tablet PO SCH ×2 (08:37→19:25)
[2021-04-09] MEDS: nystatin 15 GM powder TP SCH ×2 (08:38→19:25)
[2021-04-09] MEDS: protein shake 8oz. (237ml) PO SCH (17:00)
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
[2021-04-09] MEDS: rivaroxaban 20mg tablet PO SCH (17:51)
[2021-04-09] MEDS: traZODone 50mg tablet PO PRN (19:28)
[2021-04-09] MEDS: sertraline 50mg tablet PO SCH (20:02)
[2021-04-09 20:47] VITALS: BP 93/55
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
[2021-04-10 07:39] VITALS: BP 96/54
[2021-04-10] MEDS: nystatin 15 GM powder TP SCH ×2 (08:00→20:06)
[2021-04-10] MEDS: nicotine 21mg patch - 24 hr TD SCH (08:35)
[2021-04-10] MEDS: oxybutynin 5mg tablet PO SCH ×2 (08:35→20:05)
[2021-04-10] MEDS: magnesium oxide 400mg tablet PO SCH ×3 (08:35→20:05)
[2021-04-10] MEDS: divalproex sodium 500mg tablet.DR PO SCH ×2 (08:35→20:05)
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
[2021-04-10] MEDS: protein shake 8oz. (237ml) PO SCH (17:59)
[2021-04-10] MEDS: rivaroxaban 20mg tablet PO SCH (18:04)
[2021-04-10 20:02] VITALS: BP 95/53
[2021-04-10] MEDS: sertraline 50mg tablet PO SCH (20:06)
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
[2021-04-11 07:45] VITALS: BP 102/58
[2021-04-11] MEDS: nystatin 15 GM powder TP SCH ×2 (08:07→20:08)
[2021-04-11] MEDS: oxybutynin 5mg tablet PO SCH ×2 (08:07→20:07)
[2021-04-11] MEDS: magnesium oxide 400mg tablet PO SCH ×3 (08:07→20:07)
[2021-04-11] MEDS: divalproex sodium 500mg tablet.DR PO SCH ×2 (08:07→20:07)
[2021-04-11] MEDS: nicotine 21mg patch - 24 hr TD SCH (08:08)
[2021-04-11] MEDS ORDERED: paliperidone palmitate inj 234 MG/1.5 ML SYRINGE IM ONE (16:15)
[2021-04-11] MEDS: protein shake 8oz. (237ml) PO SCH (17:10)
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
[2021-04-11] MEDS: rivaroxaban 20mg tablet PO SCH (17:50)
[2021-04-11] MEDS: traZODone 50mg tablet PO PRN (20:07)
[2021-04-11] MEDS: sertraline 50mg tablet PO SCH (20:07)
[2021-04-11 20:19] VITALS: BP 91/60
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
[2021-04-12 08:00] VITALS: BP 108/64
[2021-04-12] MEDS: nystatin 15 GM powder TP SCH ×2 (08:00→19:52)
[2021-04-12] MEDS: oxybutynin 5mg tablet PO SCH ×2 (08:12→19:36)
[2021-04-12] MEDS: divalproex sodium 500mg tablet.DR PO SCH ×2 (08:12→19:36)
[2021-04-12] MEDS: nicotine 21mg patch - 24 hr TD SCH (08:12)
[2021-04-12] MEDS: magnesium oxide 400mg tablet PO SCH ×3 (08:12→20:01)
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
[2021-04-12] MEDS: LORazepam 1 MG tablet PO PRN (16:16)
[2021-04-12] MEDS: rivaroxaban 20mg tablet PO SCH (17:04)
[2021-04-12] MEDS: protein shake 8oz. (237ml) PO SCH (17:40)
[2021-04-12 19:00] VITALS: BP 99/76
[2021-04-12] MEDS: traZODone 50mg tablet PO PRN (19:36)
[2021-04-12] MEDS: sertraline 50mg tablet PO SCH (20:01)
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
[2021-04-13 08:00] VITALS: BP 102/54
[2021-04-13] MEDS: nystatin 15 GM powder TP SCH ×2 (08:00→20:33)
[2021-04-13] MEDS: divalproex sodium 500mg tablet.DR PO SCH ×2 (08:35→20:33)
[2021-04-13] MEDS: oxybutynin 5mg tablet PO SCH ×2 (08:35→20:33)
[2021-04-13] MEDS: nicotine 21mg patch - 24 hr TD SCH (08:35)
[2021-04-13] MEDS: magnesium oxide 400mg tablet PO SCH ×3 (08:35→20:33)
--- NOTE | 2021-04-13 09:22 | NUR ---
F/u 04/13: Pt PO 75-100% avg most meals w/ occasional refusals at breakfasts though eating snacks and Shake w/ dinner as well; meeting needs. now receiving. LBM 04/11 per EMR. No nutrition intervention at this time. Will continue to monitor. Recommendations: 1) Continue regular diet 2) Shake once daily per PA order 3) Routine bowel care 4) Weekly scaled weights Addendum: 04/13/21 at [address] Amended: Links added.
--- NOTE | 2021-04-13 14:27 | NUR ---
F/u: TC to RN with recommendation to discontinue high protein shake WS in EMR as this is not an available item in the kitchen and pt with no documented wounds. IF physician would like pt to have a supplement, recommend Ensure High Protein QD as pt generally doesn't eat breakfast and eats mostly 75-100% BIDLD. Per RN pt often sleeps through breakfast and will d/w physician. Will continue to follow. Recommendations: 1) Continue regular diet 2) Discontinue high protein shake WS as that's not an available product; consider Ensure High Protein QD if physician wants pt to receive a supplement given pt with good PO intake of meals and no wounds 3) Routine bowel care 4) Weekly scaled weights Addendum: 04/13/21 at [address] Amended: Links added.
[2021-04-13] MEDS: rivaroxaban 20mg tablet PO SCH (17:12)
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
[2021-04-13] MEDS: lactose-reduced food (Ensure High Protein) 237ml bottle PO SCH (18:00)
[2021-04-13] MEDS ORDERED: lactose-reduced food (Ensure High Protein) 237ml bottle PO SCH (18:00)
[2021-04-13] MEDS: sertraline 50mg tablet PO SCH (20:33)
[2021-04-13] MEDS: traZODone 50mg tablet PO PRN (20:33)
[2021-04-13 20:59] VITALS: BP 109/67
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
[2021-04-14 08:00] VITALS: BP 91/58
[2021-04-14] MEDS: divalproex sodium 500mg tablet.DR PO SCH ×2 (08:28→20:46)
[2021-04-14] MEDS: magnesium oxide 400mg tablet PO SCH ×3 (08:28→20:47)
[2021-04-14] MEDS: oxybutynin 5mg tablet PO SCH ×2 (08:28→20:46)
[2021-04-14] MEDS: nicotine 21mg patch - 24 hr TD SCH (08:29)
[2021-04-14] MEDS: nystatin 15 GM powder TP SCH ×2 (08:40→20:00)
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
[2021-04-14] MEDS: rivaroxaban 20mg tablet PO SCH (17:15)
[2021-04-14] MEDS: lactose-reduced food (Ensure High Protein) 237ml bottle PO SCH (18:00)
[2021-04-14 19:00] VITALS: BP 112/65
[2021-04-14] MEDS: sertraline 50mg tablet PO SCH (20:46)
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
--- NOTE | 2021-04-15 07:35 | NUR ---
PLACEMENT UPDATE Packet is in Q at [facility], Luis is hoping to have a bed available at the end of April or beginning of May.She was declined at [facility]. HARITHA Renae
[2021-04-15 08:00] VITALS: BP 106/61
[2021-04-15] MEDS: divalproex sodium 500mg tablet.DR PO SCH ×2 (08:25→20:38)
[2021-04-15] MEDS: magnesium oxide 400mg tablet PO SCH ×3 (08:25→20:38)
[2021-04-15] MEDS: nicotine 21mg patch - 24 hr TD SCH (08:26)
[2021-04-15] MEDS: nystatin 15 GM powder TP SCH ×2 (08:26→20:00)
[2021-04-15] MEDS: oxybutynin 5mg tablet PO SCH ×2 (08:26→20:38)
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
[2021-04-15] MEDS: rivaroxaban 20mg tablet PO SCH (17:52)
[2021-04-15] MEDS: lactose-reduced food (Ensure High Protein) 237ml bottle PO SCH (18:15)
[2021-04-15] MEDS: LORazepam 1 MG tablet PO PRN (18:30)
[2021-04-15 19:32] VITALS: BP 99/58
[2021-04-15] MEDS: sertraline 50mg tablet PO SCH (20:38)
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
[2021-04-16] MEDS: oxybutynin 5mg tablet PO SCH ×2 (07:58→20:45)
[2021-04-16] MEDS: magnesium oxide 400mg tablet PO SCH ×3 (07:58→20:45)
[2021-04-16] MEDS: divalproex sodium 500mg tablet.DR PO SCH ×2 (07:58→20:45)
[2021-04-16] MEDS: nicotine 21mg patch - 24 hr TD SCH (07:59)
[2021-04-16] MEDS: nystatin 15 GM powder TP SCH ×2 (08:00→20:00)
[2021-04-16 08:46] VITALS: BP 93/53
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
[2021-04-16] MEDS: rivaroxaban 20mg tablet PO SCH (17:50)
[2021-04-16] MEDS: lactose-reduced food (Ensure High Protein) 237ml bottle PO SCH (17:52)
[2021-04-16 19:14] VITALS: BP 95/72
[2021-04-16] MEDS: sertraline 50mg tablet PO SCH (20:45)
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
[2021-04-17 08:00] VITALS: BP 98/54
[2021-04-17] MEDS: nystatin 15 GM powder TP SCH ×2 (08:00→20:00)
[2021-04-17] MEDS: nicotine 21mg patch - 24 hr TD SCH (08:00)
[2021-04-17] MEDS: divalproex sodium 500mg tablet.DR PO SCH ×2 (08:11→20:06)
[2021-04-17] MEDS: magnesium oxide 400mg tablet PO SCH ×3 (08:11→20:06)
[2021-04-17] MEDS: oxybutynin 5mg tablet PO SCH ×2 (08:11→20:06)
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
[2021-04-17] MEDS: rivaroxaban 20mg tablet PO SCH (17:43)
[2021-04-17] MEDS: lactose-reduced food (Ensure High Protein) 237ml bottle PO SCH (18:03)
[2021-04-17 19:31] VITALS: BP 94/64
[2021-04-17] MEDS: sertraline 50mg tablet PO SCH (20:06)
[2021-04-17] MEDS: traZODone 50mg tablet PO PRN ×2 (20:06→21:09)
[2021-04-17] MEDS: LORazepam 1 MG tablet PO PRN (20:07)
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
[2021-04-18 07:05] VITALS: BP 96/62
[2021-04-18] MEDS: nicotine 21mg patch - 24 hr TD SCH (08:12)
[2021-04-18] MEDS: magnesium oxide 400mg tablet PO SCH ×3 (08:12→20:12)
[2021-04-18] MEDS: oxybutynin 5mg tablet PO SCH ×2 (08:12→20:12)
[2021-04-18] MEDS: nystatin 15 GM powder TP SCH ×2 (08:12→20:00)
[2021-04-18] MEDS: divalproex sodium 500mg tablet.DR PO SCH ×2 (08:12→20:12)
[2021-04-18] MEDS: rivaroxaban 20mg tablet PO SCH (17:24)
[2021-04-18] MEDS: lactose-reduced food (Ensure High Protein) 237ml bottle PO SCH (17:26)
[2021-04-18 20:00] VITALS: BP 112/77
[2021-04-18] MEDS: sertraline 50mg tablet PO SCH (20:12)
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
[2021-04-19] MEDS: magnesium oxide 400mg tablet PO SCH ×3 (07:42→20:03)
[2021-04-19] MEDS: nystatin 15 GM powder TP SCH ×2 (07:42→20:00)
[2021-04-19] MEDS: oxybutynin 5mg tablet PO SCH ×2 (07:42→20:03)
[2021-04-19] MEDS: divalproex sodium 500mg tablet.DR PO SCH ×2 (07:42→20:02)
[2021-04-19] MEDS: acetaminophen 325mg tablet PO PRN (07:42)
[2021-04-19] MEDS: nicotine 21mg patch - 24 hr TD SCH (07:43)
[2021-04-19 08:00] VITALS: BP 108/65
--- NOTE | 2021-04-19 12:33 | NUR ---
F/u 04/19: Pt PO mostly 100% of meals on Regular diet w/ occasional refusals at breakfasts; additionally w/ 100% of ONS QD meeting needs. LBM 04/17 per EMR. No nutrition intervention at this time. Will continue to monitor. Recommendations: 1) Continue regular diet 2) Ensure High Protein QD 3) Routine bowel care 4) Weekly scaled weights Addendum: 04/19/21 at [address] Amended: Links added.
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
[2021-04-19] MEDS: rivaroxaban 20mg tablet PO SCH (17:29)
[2021-04-19] MEDS: lactose-reduced food (Ensure High Protein) 237ml bottle PO SCH (17:51)
[2021-04-19 20:00] VITALS: BP 95/60
[2021-04-19] MEDS: sertraline 25mg tablet PO SCH (20:04)
[2021-04-19 23:23] VITALS: BP 95/60
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
[2021-04-20 08:01] VITALS: BP 100/64
[2021-04-20] MEDS: divalproex sodium 500mg tablet.DR PO SCH ×2 (08:08→20:40)
[2021-04-20] MEDS: magnesium oxide 400mg tablet PO SCH ×3 (08:08→20:40)
[2021-04-20] MEDS: oxybutynin 5mg tablet PO SCH ×2 (08:08→20:40)
[2021-04-20] MEDS: acetaminophen 325mg tablet PO PRN (08:10)
[2021-04-20] MEDS: nicotine 21mg patch - 24 hr TD SCH (08:14)
[2021-04-20] MEDS: nystatin 15 GM powder TP SCH ×2 (08:17→20:40)
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
[2021-04-20] MEDS: rivaroxaban 20mg tablet PO SCH (18:00)
[2021-04-20] MEDS: lactose-reduced food (Ensure High Protein) 237ml bottle PO SCH (18:00)
[2021-04-20] MEDS: LORazepam 1 MG tablet PO PRN (18:53)
[2021-04-20 19:53] VITALS: BP 99/67
[2021-04-20] MEDS: sertraline 25mg tablet PO SCH (20:40)
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
[2021-04-21 07:32] VITALS: BP 108/69
[2021-04-21] MEDS: divalproex sodium 500mg tablet.DR PO SCH ×2 (08:17→21:23)
[2021-04-21] MEDS: magnesium oxide 400mg tablet PO SCH ×3 (08:17→21:22)
[2021-04-21] MEDS: acetaminophen 325mg tablet PO PRN (08:18)
[2021-04-21] MEDS: oxybutynin 5mg tablet PO SCH ×2 (08:18→21:22)
[2021-04-21] MEDS: nicotine 21mg patch - 24 hr TD SCH (08:20)
[2021-04-21] MEDS: nystatin 15 GM powder TP SCH ×2 (08:21→20:00)
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
[2021-04-21] MEDS: LORazepam 1 MG tablet PO PRN (17:43)
[2021-04-21] MEDS: rivaroxaban 20mg tablet PO SCH (17:43)
[2021-04-21] MEDS: lactose-reduced food (Ensure High Protein) 237ml bottle PO SCH (18:05)
[2021-04-21 19:00] VITALS: BP 104/64
[2021-04-21] MEDS: sertraline 25mg tablet PO SCH (21:22)
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
[2021-04-22] MEDS: divalproex sodium 500mg tablet.DR PO SCH ×2 (08:39→20:45)
[2021-04-22] MEDS: nystatin 15 GM powder TP SCH ×2 (08:39→20:52)
[2021-04-22] MEDS: nicotine 21mg patch - 24 hr TD SCH (08:39)
[2021-04-22] MEDS: magnesium oxide 400mg tablet PO SCH ×3 (08:39→20:45)
[2021-04-22] MEDS: oxybutynin 5mg tablet PO SCH ×2 (08:39→20:45)
[2021-04-22 08:52] VITALS: BP 99/55
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
[2021-04-22] MEDS: rivaroxaban 20mg tablet PO SCH (17:56)
[2021-04-22] MEDS: lactose-reduced food (Ensure High Protein) 237ml bottle PO SCH (17:57)
[2021-04-22 19:00] VITALS: BP 109/66
[2021-04-22] MEDS: sertraline 25mg tablet PO SCH (20:45)
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
[2021-04-23] MEDS: divalproex sodium 500mg tablet.DR PO SCH ×2 (08:36→20:08)
[2021-04-23] MEDS: oxybutynin 5mg tablet PO SCH ×2 (08:36→20:08)
[2021-04-23] MEDS: magnesium oxide 400mg tablet PO SCH ×3 (08:36→20:08)
[2021-04-23 08:37] VITALS: BP 98/58
[2021-04-23] MEDS: nystatin 15 GM powder TP SCH ×2 (08:37→20:17)
[2021-04-23] MEDS: nicotine 21mg patch - 24 hr TD SCH (08:37)
[2021-04-23] MEDS: traMADol 50MG tablet PO PRN (08:44)
[2021-04-23] MEDS: traMADol 50MG tablet PO SCH ×2 (13:18→20:08)
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
[2021-04-23] MEDS: rivaroxaban 20mg tablet PO SCH (17:30)
[2021-04-23] MEDS: lactose-reduced food (Ensure High Protein) 237ml bottle PO SCH (18:07)
[2021-04-23 19:42] VITALS: BP 94/56
[2021-04-23] MEDS: sertraline 25mg tablet PO SCH (20:08)
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
[2021-04-24 07:59] VITALS: BP 108/63
[2021-04-24] MEDS: nystatin 15 GM powder TP SCH ×2 (08:47→20:00)
[2021-04-24] MEDS: magnesium oxide 400mg tablet PO SCH ×3 (08:48→21:24)
[2021-04-24] MEDS: divalproex sodium 500mg tablet.DR PO SCH ×2 (08:48→21:24)
[2021-04-24] MEDS: traMADol 50MG tablet PO SCH ×3 (08:48→21:24)
[2021-04-24] MEDS: nicotine 21mg patch - 24 hr TD SCH (08:48)
[2021-04-24] MEDS: oxybutynin 5mg tablet PO SCH ×2 (08:48→21:25)
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
[2021-04-24] MEDS: rivaroxaban 20mg tablet PO SCH (17:19)
[2021-04-24] MEDS: lactose-reduced food (Ensure High Protein) 237ml bottle PO SCH (18:01)
[2021-04-24 19:21] VITALS: BP 89/60
[2021-04-24 19:23] VITALS: BP 89/60
[2021-04-24] MEDS: sertraline 25mg tablet PO SCH (21:24)
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
[2021-04-25 08:00] VITALS: BP 93/54
[2021-04-25] MEDS: traMADol 50MG tablet PO SCH ×3 (08:15→20:59)
[2021-04-25] MEDS: oxybutynin 5mg tablet PO SCH ×2 (08:16→20:59)
[2021-04-25] MEDS: magnesium oxide 400mg tablet PO SCH ×3 (08:16→20:59)
[2021-04-25] MEDS: divalproex sodium 500mg tablet.DR PO SCH ×2 (08:16→20:59)
[2021-04-25] MEDS: nicotine 21mg patch - 24 hr TD SCH (08:18)
[2021-04-25] MEDS: nystatin 15 GM powder TP SCH ×2 (08:42→20:00)
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
[2021-04-25] MEDS: rivaroxaban 20mg tablet PO SCH (17:52)
[2021-04-25] MEDS: lactose-reduced food (Ensure High Protein) 237ml bottle PO SCH ×2 (17:52→19:43)
[2021-04-25 19:36] VITALS: BP 95/54
[2021-04-25] MEDS: sertraline 25mg tablet PO SCH (21:00)
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
[2021-04-26 08:10] VITALS: BP 124/70
[2021-04-26] MEDS: traMADol 50MG tablet PO SCH ×2 (08:43→12:53)
[2021-04-26] MEDS: magnesium oxide 400mg tablet PO SCH ×3 (08:43→20:26)
[2021-04-26] MEDS: divalproex sodium 500mg tablet.DR PO SCH ×2 (08:43→20:25)
[2021-04-26] MEDS: oxybutynin 5mg tablet PO SCH ×2 (08:43→20:25)
[2021-04-26] MEDS: nicotine 21mg patch - 24 hr TD SCH (08:44)
[2021-04-26] MEDS: nystatin 15 GM powder TP SCH ×2 (08:47→20:00)
--- NOTE | 2021-04-26 13:55 | NUR ---
F/u 04/19: Pt PO mostly 100% of meals on Regular diet w/ occasional refusals at breakfasts; additionally w/ 100% of ONS QD meeting needs. LBM 04/24 per EMR. No nutrition intervention at this time. Will continue to monitor. Recommendations: 1) Continue regular diet 2) Ensure High Protein QD 3) Routine bowel care 4) Weekly scaled weights Addendum: 04/26/21 at [address] Amended: Links added.
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
[2021-04-26] MEDS: rivaroxaban 20mg tablet PO SCH (17:36)
[2021-04-26 20:24] VITALS: BP 112/78
[2021-04-26] MEDS: sertraline 25mg tablet PO SCH (20:26)
[2021-04-26] MEDS: HYDROcodone/acetaminophen 10/325mg tab PO SCH (20:26)
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
[2021-04-27 08:00] VITALS: BP 102/55
[2021-04-27] MEDS: divalproex sodium 500mg tablet.DR PO SCH ×2 (08:09→20:27)
[2021-04-27] MEDS: HYDROcodone/acetaminophen 10/325mg tab PO SCH ×3 (08:09→20:27)
[2021-04-27] MEDS: magnesium oxide 400mg tablet PO SCH ×3 (08:09→20:27)
[2021-04-27] MEDS: oxybutynin 5mg tablet PO SCH ×2 (08:09→20:27)
[2021-04-27] MEDS: nicotine 21mg patch - 24 hr TD SCH (08:10)
[2021-04-27] MEDS: nystatin 15 GM powder TP SCH ×2 (08:10→20:00)
[2021-04-27] MEDS: rivaroxaban 20mg tablet PO SCH (17:26)
[2021-04-27] MEDS: lactose-reduced food (Ensure High Protein) 237ml bottle PO SCH (17:50)
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
[2021-04-27 20:00] VITALS: BP 97/55
[2021-04-27] MEDS: traZODone 50mg tablet PO PRN (20:27)
[2021-04-27] MEDS: sertraline 25mg tablet PO SCH (20:27)
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
[2021-04-28] MEDS: nystatin 15 GM powder TP SCH ×2 (07:46→20:15)
[2021-04-28] MEDS: magnesium oxide 400mg tablet PO SCH ×3 (07:50→20:12)
[2021-04-28] MEDS: divalproex sodium 500mg tablet.DR PO SCH ×2 (07:50→20:12)
[2021-04-28] MEDS: oxybutynin 5mg tablet PO SCH ×2 (07:50→20:12)
[2021-04-28] MEDS: HYDROcodone/acetaminophen 10/325mg tab PO SCH ×3 (07:51→20:12)
[2021-04-28] MEDS: nicotine 21mg patch - 24 hr TD SCH (07:54)
[2021-04-28 08:00] VITALS: BP 92/55
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
[2021-04-28] MEDS: rivaroxaban 20mg tablet PO SCH (17:39)
[2021-04-28] MEDS: lactose-reduced food (Ensure High Protein) 237ml bottle PO SCH (17:39)
[2021-04-28 19:42] VITALS: BP 82/60
[2021-04-28] MEDS: sertraline 25mg tablet PO SCH (20:12)
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
[2021-04-29] MEDS: divalproex sodium 500mg tablet.DR PO SCH ×2 (07:49→20:36)
[2021-04-29] MEDS: HYDROcodone/acetaminophen 10/325mg tab PO SCH ×3 (07:49→20:36)
[2021-04-29] MEDS: nicotine 21mg patch - 24 hr TD SCH (07:49)
[2021-04-29] MEDS: oxybutynin 5mg tablet PO SCH ×2 (07:49→20:36)
[2021-04-29] MEDS: magnesium oxide 400mg tablet PO SCH ×3 (07:49→20:36)
[2021-04-29] MEDS: nystatin 15 GM powder TP SCH ×2 (07:50→20:40)
[2021-04-29 07:52] VITALS: BP 94/50
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
[2021-04-29] MEDS: rivaroxaban 20mg tablet PO SCH (17:40)
[2021-04-29] MEDS: lactose-reduced food (Ensure High Protein) 237ml bottle PO SCH (17:40)
[2021-04-29 19:37] VITALS: BP 79/55
[2021-04-29 19:52] VITALS: BP 100/62
[2021-04-29] MEDS: sertraline 25mg tablet PO SCH (20:36)
[2021-04-29] MEDS: LORazepam 1 MG tablet PO PRN (20:41)
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
[2021-04-30] MEDS: HYDROcodone/acetaminophen 10/325mg tab PO SCH ×3 (08:26→20:22)
[2021-04-30] MEDS: nystatin 15 GM powder TP SCH ×2 (08:26→20:23)
[2021-04-30] MEDS: magnesium oxide 400mg tablet PO SCH ×3 (08:26→20:22)
[2021-04-30] MEDS: oxybutynin 5mg tablet PO SCH ×2 (08:26→20:22)
[2021-04-30] MEDS: nicotine 21mg patch - 24 hr TD SCH (08:26)
[2021-04-30] MEDS: divalproex sodium 500mg tablet.DR PO SCH ×2 (08:26→20:22)
[2021-04-30 08:29] VITALS: BP 95/52
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
[2021-04-30] MEDS: rivaroxaban 20mg tablet PO SCH (17:27)
[2021-04-30] MEDS: lactose-reduced food (Ensure High Protein) 237ml bottle PO SCH (17:27)
[2021-04-30 20:00] VITALS: BP 84/50
[2021-04-30] MEDS: sertraline 25mg tablet PO SCH (20:22)
[2021-04-30] MEDS: traZODone 50mg tablet PO PRN (20:35)
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
[2021-05-01 07:28] VITALS: BP 93/57
[2021-05-01] MEDS: magnesium oxide 400mg tablet PO SCH ×3 (08:34→20:29)
[2021-05-01] MEDS: nicotine 21mg patch - 24 hr TD SCH (08:34)
[2021-05-01] MEDS: divalproex sodium 500mg tablet.DR PO SCH ×2 (08:34→20:29)
[2021-05-01] MEDS: oxybutynin 5mg tablet PO SCH ×2 (08:34→20:29)
[2021-05-01] MEDS: HYDROcodone/acetaminophen 10/325mg tab PO SCH ×3 (08:35→20:29)
[2021-05-01] MEDS: nystatin 15 GM powder TP SCH ×2 (08:38→20:00)
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
[2021-05-01] MEDS: rivaroxaban 20mg tablet PO SCH (17:58)
[2021-05-01] MEDS: lactose-reduced food (Ensure High Protein) 237ml bottle PO SCH (18:57)
[2021-05-01 19:17] VITALS: BP 77/47
[2021-05-01] MEDS: sertraline 25mg tablet PO SCH (20:29)
[2021-05-01] MEDS: traZODone 50mg tablet PO PRN (20:29)
[2021-05-02 07:25] VITALS: BP 101/68
[2021-05-02] MEDS: divalproex sodium 500mg tablet.DR PO SCH (08:07)
[2021-05-02] MEDS: oxybutynin 5mg tablet PO SCH ×2 (08:07→20:17)
[2021-05-02] MEDS: magnesium oxide 400mg tablet PO SCH ×3 (08:07→20:16)
[2021-05-02] MEDS: nicotine 21mg patch - 24 hr TD SCH (08:08)
[2021-05-02] MEDS: nystatin 15 GM powder TP SCH ×2 (08:08→20:00)
[2021-05-02] MEDS: HYDROcodone/acetaminophen 10/325mg tab PO SCH ×3 (08:08→20:17)
[2021-05-02] MEDS: LORazepam 1 MG tablet PO PRN ×2 (09:08→09:48)
[2021-05-02 11:06] LABS: CLARITY,URINE CLEAR (Clear); COLOR,URINE YELLOW (Yellow); GLUCOSE, URINE NEGATIVE (Neg); KETONES,URINE NEGATIVE (Neg); PH,URINE 7.5 (4.8-8.0); PROTEIN,URINE NEGATIVE (Neg); UA COLLECTION TYPE CLN CATCH MIDSTREAM
[2021-05-02 11:07] LABS: LEUKOCYTE ESTERASE ,URINE TRACE (Neg); NITRITES, URINE NEGATIVE (Neg); OCCULT BLOOD,URINE NEGATIVE (Neg); UROBILINOGEN,URINE 0.2 E.U/dL (0.2-1.0)
[2021-05-02 11:13] LABS: BACTERIA,URINE NONE SEEN /HPF (Neg); RBC,URINE NONE SEEN /HPF (0-2); SQUAMOUS EPITHELIAL CELL,UR FEW /LPF (FEW); WBC,URINE 0-4 /HPF (0-4)
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
[2021-05-02] MEDS: rivaroxaban 20mg tablet PO SCH (17:33)
[2021-05-02] MEDS: lactose-reduced food (Ensure High Protein) 237ml bottle PO SCH (17:57)
[2021-05-02 20:12] VITALS: BP 95/54
[2021-05-02] MEDS: sertraline 25mg tablet PO SCH (20:15)
[2021-05-02] MEDS: divalproex 250mg tablet, delayed-release PO SCH (20:16)
[2021-05-02] MEDS: traZODone 50mg tablet PO PRN (20:16)
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
[2021-05-03] MEDS ORDERED: tuberculin, purif. prot. deriv. 5 units/0.1ml ID ONE (07:25)
--- NOTE | 2021-05-03 07:25 | NUR ---
PLACEMENT UPDATE Chichi has a phone interview scheduled tomorrow at 1:30 PM with Ashley at [facility]. [employer] will assist with the phone call and interview. Sent updated notes, med list, and labs to [facility]AD office at their request. Requested a PPD as well for placement. HARITHA Renae
[2021-05-03] MEDS: magnesium oxide 400mg tablet PO SCH ×4 (07:49→21:00)
[2021-05-03] MEDS: divalproex 250mg tablet, delayed-release PO SCH ×3 (07:49→20:19)
[2021-05-03] MEDS: oxybutynin 5mg tablet PO SCH ×3 (07:49→21:00)
[2021-05-03] MEDS: HYDROcodone/acetaminophen 10/325mg tab PO SCH ×4 (07:49→15:43)
[2021-05-03] MEDS: nystatin 15 GM powder TP SCH ×2 (07:49→20:00)
[2021-05-03] MEDS: nicotine 21mg patch - 24 hr TD SCH (07:50)
[2021-05-03 08:14] VITALS: BP 137/85
--- NOTE | 2021-05-03 09:16 | NUR ---
F/u 04/19: Pt PO mostly 100% of meals on Regular diet w/ occasional refusals at breakfasts; additionally w/ 100% of ONS QD meeting needs. LBM 04/29 per EMR. No nutrition intervention at this time. Will continue to monitor. Recommendations: 1) Continue regular diet 2) Ensure High Protein QD 3) Routine bowel care 4) Weekly scaled weights Addendum: 05/03/21 at [address] Amended: Links added.
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
[2021-05-03] MEDS: lactose-reduced food (Ensure High Protein) 237ml bottle PO SCH (17:36)
[2021-05-03] MEDS: rivaroxaban 20mg tablet PO SCH (17:42)
[2021-05-03] MEDS: sertraline 25mg tablet PO SCH ×2 (20:20→21:00)
[2021-05-03 20:37] VITALS: BP 95/60
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
[2021-05-04] MEDS: oxybutynin 5mg tablet PO SCH ×2 (07:07→20:07)
[2021-05-04] MEDS: magnesium oxide 400mg tablet PO SCH ×3 (07:07→20:08)
[2021-05-04] MEDS: divalproex 250mg tablet, delayed-release PO SCH ×2 (07:07→20:08)
[2021-05-04] MEDS: LORazepam 1 MG tablet PO PRN ×3 (07:07→19:24)
[2021-05-04] MEDS: nicotine 21mg patch - 24 hr TD SCH (07:08)
[2021-05-04] MEDS: nystatin 15 GM powder TP SCH ×2 (07:40→20:00)
[2021-05-04 08:07] VITALS: BP 96/64
[2021-05-04] MEDS: NICOTINE POLACRILEX 2 MG LOZENGE BC PRN ×2 (11:53→19:24)
--- NOTE | 2021-05-04 12:16 | NUR ---
Re-scheduled Chichi's interview with [employer] to Sunday at 1:30 PM due to her mood lability and psychotic symptoms. HARITHA Renae
[2021-05-04] MEDS: HYDROcodone/acetaminophen 10/325mg tab PO SCH ×2 (12:38→20:07)
[2021-05-04] MEDS: magnesium hydroxide 30ml (MOM) UD suspension PO PRN (13:10)
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
[2021-05-04] MEDS: lactose-reduced food (Ensure High Protein) 237ml bottle PO SCH (18:20)
[2021-05-04 20:00] VITALS: BP 103/58
[2021-05-04] MEDS: enoxaparin 30mg/0.3ml syringe SUBCUT SCH (20:06)
[2021-05-04] MEDS: enoxaparin 60mg/0.6ml syringe SUBCUT SCH (20:07)
[2021-05-04] MEDS: sertraline 25mg tablet PO SCH (20:08)
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
[2021-05-05 07:34] VITALS: BP 128/64
[2021-05-05] MEDS: LORazepam 1 MG tablet PO PRN (07:47)
[2021-05-05] MEDS: oxybutynin 5mg tablet PO SCH ×2 (07:47→20:19)
[2021-05-05] MEDS: magnesium oxide 400mg tablet PO SCH ×3 (07:47→20:19)
[2021-05-05] MEDS: divalproex 250mg tablet, delayed-release PO SCH ×2 (07:47→20:19)
[2021-05-05] MEDS: HYDROcodone/acetaminophen 10/325mg tab PO SCH ×3 (07:48→20:19)
[2021-05-05] MEDS: nicotine 21mg patch - 24 hr TD SCH (07:52)
[2021-05-05] MEDS: nystatin 15 GM powder TP SCH ×2 (07:58→20:00)
[2021-05-05] MEDS: enoxaparin 60mg/0.6ml syringe SUBCUT SCH (08:28)
[2021-05-05] MEDS: enoxaparin 30mg/0.3ml syringe SUBCUT SCH (08:28)
[2021-05-05] MEDS ORDERED: LORazepam 1 MG tablet PO PRN (10:50)
[2021-05-05] MEDS ORDERED: LORazepam 1 MG tablet PO ONE (10:50)
[2021-05-05] MEDS: NICOTINE POLACRILEX 2 MG LOZENGE BC PRN (10:57)
[2021-05-05] MEDS ORDERED: PALIPERIDONE 3 MG TAB.ER.24 PO SCH (14:45)
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
[2021-05-05] MEDS: lactose-reduced food (Ensure High Protein) 237ml bottle PO SCH (18:14)
[2021-05-05 19:00] VITALS: BP 126/73
[2021-05-05] MEDS: sertraline 25mg tablet PO SCH (20:19)
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
[2021-05-06 07:38] VITALS: BP 109/69
[2021-05-06] MEDS ORDERED: enoxaparin 30mg/0.3ml syringe SUBCUT SCH (08:00)
[2021-05-06] MEDS: PALIPERIDONE 3 MG TAB.ER.24 PO SCH (08:06)
[2021-05-06] MEDS: nicotine 21mg patch - 24 hr TD SCH (08:06)
[2021-05-06] MEDS: oxybutynin 5mg tablet PO SCH ×2 (08:06→20:04)
[2021-05-06] MEDS: divalproex 250mg tablet, delayed-release PO SCH ×2 (08:07→20:03)
[2021-05-06] MEDS: magnesium oxide 400mg tablet PO SCH ×3 (08:07→20:04)
[2021-05-06] MEDS: HYDROcodone/acetaminophen 10/325mg tab PO SCH ×3 (08:07→20:04)
[2021-05-06] MEDS: nystatin 15 GM powder TP SCH ×2 (08:20→20:00)
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
[2021-05-06] MEDS: lactose-reduced food (Ensure High Protein) 237ml bottle PO SCH (17:41)
[2021-05-06 20:00] VITALS: BP 110/68
[2021-05-06] MEDS: sertraline 25mg tablet PO SCH (20:04)
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
[2021-05-07 07:22] VITALS: BP 99/64
[2021-05-07] MEDS: magnesium oxide 400mg tablet PO SCH ×3 (07:54→20:06)
[2021-05-07] MEDS: nystatin 15 GM powder TP SCH ×2 (07:54→20:00)
[2021-05-07] MEDS: oxybutynin 5mg tablet PO SCH ×2 (07:55→20:06)
[2021-05-07] MEDS: PALIPERIDONE 3 MG TAB.ER.24 PO SCH (07:55)
[2021-05-07] MEDS: divalproex 250mg tablet, delayed-release PO SCH ×2 (07:55→20:06)
[2021-05-07] MEDS: HYDROcodone/acetaminophen 10/325mg tab PO SCH ×3 (07:55→20:06)
[2021-05-07] MEDS: nicotine 21mg patch - 24 hr TD SCH (07:57)
[2021-05-07] MEDS: enoxaparin 30mg/0.3ml syringe SUBCUT SCH (08:06)
[2021-05-07] MEDS ORDERED: COVID-19 VACC, MRNA(PFIZER)/PF--BNT162b2 syringe IMVAC ONE (10:00)
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
[2021-05-07] MEDS: lactose-reduced food (Ensure High Protein) 237ml bottle PO SCH (18:11)
[2021-05-07] MEDS: sertraline 25mg tablet PO SCH (20:05)
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
[2021-05-08] MEDS: nystatin 15 GM powder TP SCH ×2 (08:00→20:00)
[2021-05-08] MEDS: PALIPERIDONE 3 MG TAB.ER.24 PO SCH (08:15)
[2021-05-08] MEDS: magnesium oxide 400mg tablet PO SCH ×3 (08:15→21:26)
[2021-05-08] MEDS: oxybutynin 5mg tablet PO SCH ×2 (08:15→21:26)
[2021-05-08] MEDS: divalproex 250mg tablet, delayed-release PO SCH ×2 (08:16→21:24)
[2021-05-08 08:17] VITALS: BP 81/47
[2021-05-08] MEDS: HYDROcodone/acetaminophen 10/325mg tab PO SCH ×3 (08:17→21:27)
[2021-05-08] MEDS: enoxaparin 30mg/0.3ml syringe SUBCUT SCH (09:05)
[2021-05-08] MEDS: nicotine 21mg patch - 24 hr TD SCH (09:06)
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
[2021-05-08] MEDS: lactose-reduced food (Ensure High Protein) 237ml bottle PO SCH (18:11)
[2021-05-08 19:50] VITALS: BP 97/60
[2021-05-08] MEDS: sertraline 25mg tablet PO SCH (21:25)
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
[2021-05-09 07:48] VITALS: BP 110/62
[2021-05-09] MEDS: nystatin 15 GM powder TP SCH ×2 (08:00→20:00)
[2021-05-09] MEDS: loperamide 2mg capsule PO PRN (09:25)
[2021-05-09] MEDS: HYDROcodone/acetaminophen 10/325mg tab PO SCH ×3 (09:26→20:02)
[2021-05-09] MEDS: divalproex 250mg tablet, delayed-release PO SCH ×2 (09:26→20:02)
[2021-05-09] MEDS: enoxaparin 30mg/0.3ml syringe SUBCUT SCH (09:37)
[2021-05-09] MEDS: nicotine 21mg patch - 24 hr TD SCH (09:39)
[2021-05-09] MEDS: magnesium oxide 400mg tablet PO SCH ×3 (09:39→20:02)
[2021-05-09] MEDS: oxybutynin 5mg tablet PO SCH ×2 (09:41→20:01)
[2021-05-09] MEDS: PALIPERIDONE 3 MG TAB.ER.24 PO SCH (09:41)
[2021-05-09] MEDS ORDERED: COVID-19 VACC, MRNA(PFIZER)/PF--BNT162b2 syringe IMVAC ONE (10:00)
--- NOTE | 2021-05-09 13:51 | NUR ---
SURGERY SCHEDULED FOR 4 PM Sun05/11/21 Spoke to [facility] office and the paperwork went to the news camera person today. They should have it back by Sun. They were not concerned about having it back prior to surgery as Chichi is agreeable to the surgery. HARITHA Renae
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
[2021-05-09] MEDS: lactose-reduced food (Ensure High Protein) 237ml bottle PO SCH (18:31)
[2021-05-09] MEDS: sertraline 25mg tablet PO SCH (20:00)
[2021-05-09 20:29] VITALS: BP 97/54
[2021-05-09 20:30] VITALS: BP 97/54
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
--- NOTE | 2021-05-10 06:55 | NUR ---
PRE OP INSTRUCTIONS send results of CBC, CMP, and EKG to PAS unit at Fax [phone] Hold Lovenox today NPO after midnight clear liquids until noon on 05/11/21 (can have jello, soda, black coffee) Can give Albuterol, Depakote and Oxybutynin in the AM of 05/11 wash with Hibiclens from neck to toe tonight, and tomorrow before going to PAS D/C from [facility] and admit to PAS unit at 1300 on 05/11
[2021-05-10 07:44] LABS: BASOPHILS % (AUTO) 0.6 % (0-1); EOSINOPHILS # (AUTO) 0.1 X10'3 (0-0.9); EOSINOPHILS % (AUTO) 2.6 % (0-6); HEMATOCRIT 34.8 % (35.0-45.0); HEMOGLOBIN 11.9 g/dl (12.0-16.0); LYMPHOCYTES # (AUTO) 1.8 X10'3 (1.1-4.8); LYMPHOCYTES % (AUTO) 48.4 % (21-51); MEAN CORPUSCULAR HEMOGLOBIN 32.5 PG (27.0-31.0); MEAN CORPUSCULAR HGB CONC 34.1 g/dL (33.0-36.5); MEAN CORPUSCULAR VOLUME 95.4 FL (78-98); MEAN PLATELET VOLUME 9.6 FL (7.4-10.4); MONOCYTES # (AUTO) 0.4 X10'3 (0-0.9); MONOCYTES % (AUTO) 11.5 % (2-12); NEUTROPHILS # (AUTO) 1.4 X10'3 (1.8-7.7); NEUTROPHILS % (AUTO) 36.9 % (42-75); PLATELET COUNT 167 X10'3 (140-440); RED BLOOD COUNT 3.65 X10'6 (4.20-5.60); RED CELL DISTRIBUTION WIDTH 15.8 % (11.5-14.5); WHITE BLOOD COUNT 3.7 X10'3 (4.5-11.0)
[2021-05-10 07:53] VITALS: BP 104/58
[2021-05-10] MEDS: enoxaparin 30mg/0.3ml syringe SUBCUT SCH (08:00)
[2021-05-10] MEDS: nystatin 15 GM powder TP SCH ×2 (08:00→20:06)
[2021-05-10] MEDS: PALIPERIDONE 3 MG TAB.ER.24 PO SCH (09:42)
[2021-05-10] MEDS: magnesium oxide 400mg tablet PO SCH ×3 (09:43→20:00)
[2021-05-10] MEDS: oxybutynin 5mg tablet PO SCH ×2 (09:43→20:02)
[2021-05-10] MEDS: HYDROcodone/acetaminophen 10/325mg tab PO SCH ×3 (09:43→20:01)
[2021-05-10] MEDS: divalproex 250mg tablet, delayed-release PO SCH ×2 (09:43→20:00)
[2021-05-10] MEDS: nicotine 21mg patch - 24 hr TD SCH (09:45)
[2021-05-10 10:19] LABS: ALANINE AMINOTRANSFERASE 12 U/L (12-78); ALBUMIN 2.4 G/DL (3.4-5.0); ALBUMIN/GLOBULIN RATIO 0.7 (1.1-1.5); ALKALINE PHOSPHATASE 47 IU/L (46-116); ANION GAP 5 (8-16); ASPARTATE AMINO TRANSFERASE 10 U/L (10-37); BILIRUBIN,TOTAL 0.2 MG/DL (0.1-1.0); BLOOD UREA NITROGEN 33 MG/DL (7-18); CALCIUM 8.4 MG/DL (8.5-10.1); CHLORIDE 106 MMOL/L (99-107); CREATININE 1.18 MG/DL (0.40-0.90); GLUCOSE 85 MG/DL (70-104); POTASSIUM 4.8 MMOL/L (3.5-5.1); SODIUM 142 MMOL/L (135-145); TOTAL CARBON DIOXIDE 31.1 MMOL/L (24-32); TOTAL PROTEIN 5.7 G/DL (6.4-8.2); eGFR 47 ML/MIN
--- NOTE | 2021-05-10 15:07 | NUR ---
F/u 05/10: Pt PO mostly 100% of meals on Regular diet w/ occasional refusals at breakfasts; additionally w/ 100% of ONS QD meeting needs. LBM 05/06 per EMR. No nutrition intervention at this time. Will continue to monitor. Recommendations: 1) Continue regular diet 2) Ensure High Protein QD 3) Routine bowel care 4) Weekly scaled weights Addendum: 05/10/21 at [address] Amended: Links added.
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
[2021-05-10] MEDS: lactose-reduced food (Ensure High Protein) 237ml bottle PO SCH (18:07)
[2021-05-10] MEDS: sertraline 25mg tablet PO SCH (20:03)
[2021-05-10 20:29] VITALS: BP 98/53
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
[2021-05-11 08:00] VITALS: BP 88/50
[2021-05-11] MEDS: magnesium oxide 400mg tablet PO SCH ×2 (08:00→12:50)
[2021-05-11] MEDS: enoxaparin 30mg/0.3ml syringe SUBCUT SCH (08:00)
[2021-05-11] MEDS: nicotine 21mg patch - 24 hr TD SCH (08:00)
[2021-05-11] MEDS: nystatin 15 GM powder TP SCH (08:00)
[2021-05-11] MEDS: HYDROcodone/acetaminophen 10/325mg tab PO SCH ×2 (08:00→12:50)
[2021-05-11] MEDS: PALIPERIDONE 3 MG TAB.ER.24 PO SCH (08:00)
[2021-05-11] MEDS ORDERED: SALI45SP MM (08:43)
[2021-05-11] MEDS ORDERED: MAGN400T56 PO (08:43)
[2021-05-11] MEDS ORDERED: NICO-907 BC (08:43)
[2021-05-11] MEDS ORDERED: NICO-687 TD (08:43)
[2021-05-11] MEDS ORDERED: DIVA250T4 PO (08:43)
[2021-05-11] MEDS ORDERED: TRAZ-251 PO (08:43)
[2021-05-11] MEDS ORDERED: PALI156D IM (08:43)
[2021-05-11] MEDS ORDERED: SERT-432 PO (08:43)
[2021-05-11] MEDS ORDERED: LACT-228 PO (08:43)
[2021-05-11] MEDS ORDERED: NYSPWD TP (08:43)
[2021-05-11] MEDS ORDERED: OXYB5TAB16 PO ×2 (08:43)
[2021-05-11] MEDS ORDERED: paliperidone palmitate inj 234 MG/1.5 ML SYRINGE IM ONE (08:50)
[2021-05-11 09:00] VITALS: BP 110/70
[2021-05-11] MEDS: oxybutynin 5mg tablet PO SCH (09:08)
[2021-05-11] MEDS: divalproex 250mg tablet, delayed-release PO SCH (09:08)
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
--- NOTE | 2021-05-11 14:42 | NUR ---
Discharge Note: Pt. was discharged from [facility] at 1442, and taken by staff from the PAS unit in a w/c. Pt. will be having right knee surgery. In preparation for the surgery, pt's medications were held, aside from Depakote and Oxybutynin which were previously okayed. She was also given an ordered Invega injection in her left ventrogluteal area per RIVERA Lau which pt. tolerated well. Pt. maintained a diet of clear liquid up until 1200, when she became NPO in preparation for surgery. Pt. was also assisted to shower by this justowriter operator with Hibiclens from neck to toe. Pictures were obtained of chronic skin rash under pt's bilateral breasts and pannus and placed in her chart. A MRSA screening swab was also completed and sent to lab, results pending. Pt's belongings will be kept on the unit in her locker for her when she returns from recovery, and she reports understanding. Pt's discharge packet and printed medications were given to PAS staff. Pt. declined to review discharge paperwork, and paperwork was faxed to her conservator. Pt. is aware she will be returning to [facility] after her recovery to continue to await placement.
== END 2021-05-11 14:40 | disposition short-term general hospital (02) | DRG 885 ==
LOC: ER 18:08 → ED HOLD 02-25 12:05 → ADULT MH 02-25 15:37
PROVIDERS: ADMIT Psychiatry & Neurology Psychiatry; ATTEND Psychiatry & Neurology Psychiatry
DX: F25.0 Schizoaffective disorder, bipolar type (principal); N17.9 Acute kidney failure, unspecified; N18.9 Chronic kidney disease, unspecified; Z93.3 Colostomy status; R45.851 Suicidal ideations; F23 Brief psychotic disorder; F15.10 Other stimulant abuse, uncomplicated; D72.821 Monocytosis (symptomatic); E66.9 Obesity, unspecified; F12.10 Cannabis abuse, uncomplicated; F17.210 Nicotine dependence, cigarettes, uncomplicated; F29 Unspecified psychosis not due to a substance or known physiological condition; Z20.822 Contact with and (suspected) exposure to COVID-19; M54.9 Dorsalgia, unspecified; R21 Rash and other nonspecific skin eruption; B37.9 Candidiasis, unspecified; N32.81 Overactive bladder; K59.00 Constipation, unspecified; R42 Dizziness and giddiness; G89.29 Other chronic pain; J44.9 Chronic obstructive pulmonary disease, unspecified; M17.11 Unilateral primary osteoarthritis, right knee; R32 Unspecified urinary incontinence; Z79.899 Other long term (current) drug therapy; Z81.1 Family history of alcohol abuse and dependence; Z82.0 Family history of epilepsy and other diseases of the nervous system; Z68.31 Body mass index [BMI] 31.0-31.9, adult; Z90.5 Acquired absence of kidney; Z91.14 Patient's other noncompliance with medication regimen; Z28.21 Immunization not carried out because of patient refusal; Z88.8 Allergy status to other drugs, medicaments and biological substances; Z71.6 Tobacco abuse counseling; Z56.0 Unemployment, unspecified; Z86.718 Personal history of other venous thrombosis and embolism
CPT/HCPCS: 36415; 73564; 80048; 80053; 80061; 80164; 80305; 80320; 81001; 82948; 83036; 83735; 84100; 84439; 84443; 84480; 85025; 85576; 87081; 87088; 87635; 93005; 94640; 94760; 97116; 97161; 97530; 99285; C9803; J1200; J1630; J1650; J2060; J7030; J7999; Q0177

== ENCOUNTER 2021-05-11 13:01 | Inpatient (IN) | payer MEDICARE, MEDICAID ==
[~2021-05-11] VITALS: Ht 172.7 cm; Wt 95.0 kg
[2021-05-11] VITALS (14 sets, daily range): BP systolic 75–139; BP diastolic 52–83
[2021-05-11] MEDS: albuterol 2.5 MG/3 ML nebule NEB ONE (05:30)
[~2021-05-11 13:01] MED LIST changes: +ALBU8HFA PO; -CLOT15CR35 TOP; +DIVA-76 PO; +DIVA250T4 PO; -DIVA500T2 PO; +FURO-150 PO; +HYDR-3686 PO; +LACT-228 PO; +MAGN400T56 PO; -NICO-668 BC; +NICO-907 BC; +NYSPWD TP; +OXYB5TAB16 PO; -RIVA20TA PO; +ROPIVAcaine inj 200 MG, epiNEPHrine inj 0.6 MG, morphine 10mg/ml inj. 5 MG in normal sa... IU ONE; +SALI45SP MM; +SERT-432 PO; +TEMA15CA PO; -TEMA15CA5 PO; +TRAZ-251 PO; +VANCOMYCIN 1,500MG in NS 500ml IVPB IV ONE; +cefazolin/dext.iso 2gm/50ml 50 ML IV ONE; +famotidine 20mg tablet PO ONE; +ringers solution, lacted 1,000 ML IV SCH; +tranexamic acid inj. 1,000 MG in normal saline 100 ML IV ONE
[2021-05-11] MEDS ORDERED: vancomycin 1,000mg inj ONE (15:41)
[2021-05-11] MEDS ORDERED: morphine 2 MG/ML inj. syringe IV PRN ×2 (16:00→18:50)
[2021-05-11] MEDS ORDERED: ringers solution, lacted 1,000 ML IV SCH ×2 (16:00→18:50)
[2021-05-11] MEDS ORDERED: ondansetron/PF 4mg/2ml inj IV PRN ×3 (16:00→19:35)
[2021-05-11] MEDS ORDERED: proCHLORperazine 10 MG/2 ml inj IV PRN ×2 (16:00→18:50)
[2021-05-11] MEDS ORDERED: morphine 4 MG/ML inj SYRINge IV PRN ×2 (16:00→18:50)
[2021-05-11] MEDS ORDERED: sevoflurane 250ml liquid IH ONE (17:02)
[2021-05-11] MEDS ORDERED: ePHEDrine 50MG/ML INJ. ONE (17:02)
[2021-05-11] MEDS ORDERED: tetracaine 1% (10mg/ml) pres. free inj. ONE (17:06)
[2021-05-11] MEDS ORDERED: fentaNYL/PF 50MCG/1 ML 2ML syringe ONE (17:07)
[2021-05-11] MEDS ORDERED: MIDAZolam 1mg/ml 10ml vial ONE (17:07)
[2021-05-11] MEDS ORDERED: propofol inj 20 ML IV ONE (17:39)
[2021-05-11] MEDS ORDERED: meperidine/PF 25mg/ml syringe IV PRN ×3 (18:50)
[2021-05-11] MEDS ORDERED: ROPIVAcaine 0.2% (10 MG/5 ML) BOLUS INJECTION ADDCANAL PRN (18:50)
[2021-05-11] MEDS ORDERED: ROPIVAcaine 0.5% (5mg/ml) 30ml vial ONE (19:12)
[2021-05-11] MEDS ORDERED: diphenhydrAMINE 25mg capsule PO PRN ×2 (19:35)
[2021-05-11] MEDS ORDERED: magnesium hydroxide 30ml (MOM) UD suspension PO PRN (19:35)
[2021-05-11] MEDS ORDERED: bisacodyl 10mg suppository rectal RC PRN (19:35)
[2021-05-11] MEDS ORDERED: acetaminophen 325mg tablet PO PRN (19:35)
[2021-05-11] MEDS ORDERED: HYDROmorphone inj. 0.5 MG/0.5 ML DISP.SYRIN IV PRN (19:35)
[2021-05-11] MEDS ORDERED: oxyCODONE IR 5mg (immed. release) tablet PO PRN (19:35)
[2021-05-11] MEDS ORDERED: HYDROmorphone 1 mg/ml syringe IV PRN (19:35)
--- NOTE | 2021-05-11 19:56 | NUR ---
Received from OR via SURGICAL BED , accompanied by Anesthesiologist ALMA and report given by Anesthesiolgist. PATIENT WITH 20G PIV IN LEFT UE RUNNING LR AT 100. DNEIES PAIN. SENSATION LEVEL L1 AT THIS TIME. FROM SPINAL ANESTHESIA. + DP PRESENT. SCDS DONNED. 10L MASK ON WITH 100% SATURATIONS. Addendum: 05/11/21 at 2007 by Jd Dee RN, RN Amended: Links added.
[2021-05-11] MEDS ORDERED: vancomycin/NS 1 GM ADD-VANTAGE 250 ML IV SCH (20:00)
[2021-05-11] MEDS ORDERED: NICOTINE POLACRILEX 2 MG LOZENGE BC PRN (20:20)
[2021-05-11] MEDS ORDERED: hydrOXYzine 25 MG tablet PO PRN (20:20)
[2021-05-11] MEDS ORDERED: saliva stimulant agent 45ml spray MM PRN (20:20)
[2021-05-11] MEDS: ROPIVAcaine 0.2%/PF PUMP/bolus 545 ML ADDCANAL SCH (20:26)
[2021-05-11] MEDS ORDERED: albuterol 2.5 MG/3 ML nebule NEB PRN (20:35)
--- NOTE | 2021-05-11 20:46 | NUR ---
PATIENT HAS MET ALL CRITERIA FOR TRANSFER TO THE SURGICAL/FLOOR. VSS. DRESSINGS INTACT. BED LOW, CALL LIGHT PRESENT AND 2 RAILS UP. RN PRESENT TO ACCEPT CARE OF PATIENT AND REPORT HAS BEEN CALLED. ALL QUESTIONS ANSWERED TO ACCEPTING RN Addendum: 05/11/21 at 2050 by Jd Mcguire - MEGHA RN Amended: Links added.
[2021-05-11] MEDS: sertraline 25mg tablet PO SCH (23:18)
[2021-05-11] MEDS: magnesium oxide 400mg tablet PO SCH (23:18)
[2021-05-11] MEDS: gabapentin 300mg capsule PO SCH (23:19)
[2021-05-11] MEDS: oxybutynin 5mg tablet PO SCH (23:19)
[2021-05-11] MEDS: sennosides 8.6mg tablet PO SCH (23:20)
[2021-05-11] MEDS: tranexamic acid inj. 1,000 MG in normal saline 100ml IV soln 100 ML IV ONE (23:20)
[2021-05-11] MEDS: acetaminophen 325mg tablet PO SCH (23:32)
[2021-05-12] VITALS (8 sets, daily range): BP systolic 99–136; BP diastolic 55–79
[2021-05-12] MEDS: tranexamic acid inj. 1,000 MG in normal saline 100ml IV soln 100 ML IV ONE (01:32)
[2021-05-12] MEDS: oxyCODONE IR 5mg (immed. release) tablet PO PRN ×2 (01:44→15:00)
[2021-05-12] MEDS: acetaminophen 325mg tablet PO SCH ×4 (02:00→22:01)
[2021-05-12] MEDS: potassium cl 20mEq in 1/2 NS 1,000 ML IV SCH ×4 (02:55→22:03)
[2021-05-12] MEDS: ceFAZolin/D5W- 1GM premix 50 ML IV SCH ×3 (02:55→10:07)
[2021-05-12] MEDS: traZODone 50mg tablet PO PRN ×2 (03:02→03:06)
--- NOTE | 2021-05-12 05:00 | NUR ---
Pt Ancef was hung but was somehow switched to the primary before piggyback could start. Pharmacy was messaged and they said just give next dose no need to re-time missed dose.
[2021-05-12 06:07] LABS: BASOPHILS % (AUTO) 0.1 % (0-1); EOSINOPHILS % (AUTO) 0 % (0-6); HEMATOCRIT 32.5 % (35.0-45.0); HEMOGLOBIN 11.2 g/dl (12.0-16.0); LYMPHOCYTES # (AUTO) 0.5 X10'3 (1.1-4.8); LYMPHOCYTES % (AUTO) 7.1 % (21-51); MEAN CORPUSCULAR HEMOGLOBIN 32.8 PG (27.0-31.0); MEAN CORPUSCULAR HGB CONC 34.5 g/dL (33.0-36.5); MEAN PLATELET VOLUME 9.4 FL (7.4-10.4); MONOCYTES # (AUTO) 0.8 X10'3 (0-0.9); MONOCYTES % (AUTO) 11.1 % (2-12); NEUTROPHILS # (AUTO) 5.6 X10'3 (1.8-7.7); NEUTROPHILS % (AUTO) 81.7 % (42-75); PLATELET COUNT 168 X10'3 (140-440); RED BLOOD COUNT 3.42 X10'6 (4.20-5.60); RED CELL DISTRIBUTION WIDTH 15.4 % (11.5-14.5); WHITE BLOOD COUNT 6.8 X10'3 (4.5-11.0)
--- NOTE | 2021-05-12 06:17 | NUR ---
Patient in room [facility] 350. I have received report from MEGHA Campa and had the opportunity to ask questions and assume patient care.
[2021-05-12 06:23] LABS: ANION GAP 10 (8-16); CHLORIDE 105 MMOL/L (99-107); POTASSIUM 4.6 MMOL/L (3.5-5.1); SODIUM 140 MMOL/L (135-145); TOTAL CARBON DIOXIDE 25.1 MMOL/L (24-32)
--- NOTE | 2021-05-12 06:32 | NUR ---
Patient in room [facility] 350. I have received report from MEGHA Campa and had the opportunity to ask questions and assume patient care.
[2021-05-12] MEDS: oxybutynin 5mg tablet PO SCH ×2 (08:40→21:59)
[2021-05-12] MEDS: nicotine 21mg patch - 24 hr TD SCH (08:40)
[2021-05-12] MEDS: enoxaparin 40mg/0.4ml syringe SQ SCH (08:41)
[2021-05-12] MEDS: gabapentin 300mg capsule PO SCH ×3 (08:47→21:58)
[2021-05-12] MEDS: magnesium oxide 400mg tablet PO SCH ×3 (08:47→21:59)
--- NOTE | 2021-05-12 08:53 | NUR ---
Primary Joint consult: Pt transfer from [facility] [place], s/p R knee arthroplasty 05/11. Per previous RD assessment on 05/10 pt w/ mostly 100% of meals on Regular diet and 100% of Ensure High protein QD. High protein diet ed deferred at this time. Addendum: 05/12/21 at [address] Amended: Links added.
[2021-05-12] MEDS: nystatin 15 GM powder TP SCH ×2 (10:08→22:07)
[2021-05-12] MEDS: divalproex 250mg tablet, delayed-release PO SCH ×2 (10:08→21:59)
[2021-05-12] MEDS ORDERED: normal saline 1000ml 1,000 ML IV ONE (11:40)
[2021-05-12] MEDS: lactose-reduced food (Ensure High Protein) 237ml bottle PO SCH (18:00)
--- NOTE | 2021-05-12 18:40 | NUR ---
Patient in room [facility] 350. I have received report from MEGHA Crisostomo and had the opportunity to ask questions and assume patient care.
--- NOTE | 2021-05-12 18:41 | NUR ---
Problems reprioritized. Patient report given, questions answered & plan of care reviewed with MEGHA Campa.
[2021-05-12] MEDS: celeCOXIB 100mg capsule PO SCH (22:00)
[2021-05-12] MEDS: sertraline 25mg tablet PO SCH (22:01)
[2021-05-12] MEDS: sennosides 8.6mg tablet PO SCH (22:02)
[2021-05-13] VITALS: BP 123/78
[2021-05-13] MEDS: acetaminophen 325mg tablet PO SCH ×3 (02:20→14:01)
[2021-05-13] MEDS: potassium cl 20mEq in 1/2 NS 1,000 ML IV SCH ×2 (05:11→11:35)
--- NOTE | 2021-05-13 06:10 | NUR ---
Problems reprioritized. Patient report given, questions answered & plan of care reviewed with MEGHA Crisostomo.
[2021-05-13 07:00] VITALS: BP 132/82
[2021-05-13 07:12] LABS: BASOPHILS % (AUTO) 0.2 % (0-1); EOSINOPHILS % (AUTO) 0.3 % (0-6); HEMATOCRIT 27.5 % (35.0-45.0); HEMOGLOBIN 9.4 g/dl (12.0-16.0); LYMPHOCYTES # (AUTO) 1.5 X10'3 (1.1-4.8); LYMPHOCYTES % (AUTO) 26.5 % (21-51); MEAN CORPUSCULAR HEMOGLOBIN 32.5 PG (27.0-31.0); MEAN CORPUSCULAR HGB CONC 34.2 g/dL (33.0-36.5); MEAN PLATELET VOLUME 10.1 FL (7.4-10.4); MONOCYTES # (AUTO) 1.1 X10'3 (0-0.9); MONOCYTES % (AUTO) 19.7 % (2-12); NEUTROPHILS # (AUTO) 2.9 X10'3 (1.8-7.7); NEUTROPHILS % (AUTO) 53.3 % (42-75); PLATELET COUNT 128 X10'3 (140-440); RED BLOOD COUNT 2.89 X10'6 (4.20-5.60); RED CELL DISTRIBUTION WIDTH 15.4 % (11.5-14.5); WHITE BLOOD COUNT 5.5 X10'3 (4.5-11.0)
[2021-05-13 07:30] LABS: PLATELET ESTIMATE DECREASED; TOTAL CELLS COUNTED 100
[2021-05-13] MEDS: celeCOXIB 100mg capsule PO SCH ×2 (08:59→20:31)
[2021-05-13] MEDS: gabapentin 300mg capsule PO SCH (09:00)
[2021-05-13] MEDS: magnesium oxide 400mg tablet PO SCH ×3 (09:00→20:32)
[2021-05-13] MEDS: divalproex 250mg tablet, delayed-release PO SCH ×2 (09:00→20:31)
[2021-05-13] MEDS: oxybutynin 5mg tablet PO SCH ×2 (09:02→20:32)
[2021-05-13] MEDS: nystatin 15 GM powder TP SCH ×2 (09:03→20:36)
[2021-05-13] MEDS: nicotine 21mg patch - 24 hr TD SCH (09:03)
[2021-05-13] MEDS: oxyCODONE IR 5mg (immed. release) tablet PO PRN (09:06)
[2021-05-13] MEDS: enoxaparin 40mg/0.4ml syringe SQ SCH (09:12)
[2021-05-13] MEDS ORDERED: traMADol 50MG tablet PO PRN ×2 (11:10)
[2021-05-13 12:00] VITALS: BP 93/44
--- NOTE | 2021-05-13 16:50 | NUR ---
FC DC'd per orders. 150cc's urine drained. Pt tolerated well. Will continue to monitor.
--- NOTE | 2021-05-13 18:41 | NUR ---
Problems reprioritized. Patient report given, questions answered & plan of care reviewed with MEGHA Holcomb.
--- NOTE | 2021-05-13 18:45 | NUR ---
Patient in room [facility] 350. I have received report from MELITON CLEVELAND and had the opportunity to ask questions and assume patient care.
[2021-05-13] MEDS: ROPIVAcaine 0.2%/PF PUMP/bolus 545 ML ADDCANAL SCH (18:50)
[2021-05-13] MEDS ORDERED: acetaminophen 325mg tablet PO PRN (19:35)
[2021-05-13 20:00] VITALS: BP 109/69
[2021-05-13] MEDS: sertraline 25mg tablet PO SCH (20:30)
[2021-05-13] MEDS: sennosides 8.6mg tablet PO SCH (20:32)
[2021-05-13] MEDS: lactose-reduced food (Ensure High Protein) 237ml bottle PO SCH (20:40)
[2021-05-13 23:50] VITALS: BP 104/66
--- NOTE | 2021-05-14 06:30 | NUR ---
Problems reprioritized. Patient report given, questions answered & plan of care reviewed with TERRY CLEVELAND.
--- NOTE | 2021-05-14 06:40 | NUR ---
Patient in room MARIA 350A. I have received report from TAMARA MCDONALD RN and had the opportunity to ask questions and assume patient care.
[2021-05-14 08:00] VITALS: BP 89/58
[2021-05-14] MEDS: enoxaparin 40mg/0.4ml syringe SQ SCH (09:46)
[2021-05-14] MEDS: divalproex 250mg tablet, delayed-release PO SCH ×2 (09:47→20:29)
[2021-05-14] MEDS: magnesium oxide 400mg tablet PO SCH ×3 (09:47→20:28)
[2021-05-14] MEDS: celeCOXIB 100mg capsule PO SCH ×2 (09:48→20:29)
[2021-05-14] MEDS: oxybutynin 5mg tablet PO SCH ×2 (09:49→20:28)
[2021-05-14] MEDS: nicotine 21mg patch - 24 hr TD SCH (09:50)
[2021-05-14] MEDS: nystatin 15 GM powder TP SCH ×2 (09:52→20:00)
[2021-05-14 11:00] VITALS: BP 90/54
[2021-05-14 18:00] VITALS: BP 99/59
[2021-05-14] MEDS: lactose-reduced food (Ensure High Protein) 237ml bottle PO SCH (18:00)
--- NOTE | 2021-05-14 19:15 | NUR ---
Problems reprioritized. Patient report given, questions answered & plan of care reviewed with MEGHA BAILEY.
[2021-05-14] MEDS: sertraline 25mg tablet PO SCH (20:28)
[2021-05-14] MEDS: traZODone 50mg tablet PO PRN (20:28)
[2021-05-14] MEDS: sennosides 8.6mg tablet PO SCH (20:28)
[2021-05-14] MEDS: ROPIVAcaine 0.2%/PF PUMP/bolus 545 ML ADDCANAL SCH (21:02)
[2021-05-14 22:00] VITALS: BP 105/59
[2021-05-15 06:38] LABS: BASOPHILS % (AUTO) 0.3 % (0-1); EOSINOPHILS # (AUTO) 0.1 X10'3 (0-0.9); EOSINOPHILS % (AUTO) 1.7 % (0-6); HEMATOCRIT 22.7 % (35.0-45.0); HEMOGLOBIN 7.9 g/dl (12.0-16.0); LYMPHOCYTES # (AUTO) 1.1 X10'3 (1.1-4.8); LYMPHOCYTES % (AUTO) 22.4 % (21-51); MEAN CORPUSCULAR HGB CONC 34.8 g/dL (33.0-36.5); MEAN CORPUSCULAR VOLUME 94.6 FL (78-98); MEAN PLATELET VOLUME 10.3 FL (7.4-10.4); MONOCYTES # (AUTO) 0.6 X10'3 (0-0.9); MONOCYTES % (AUTO) 12.9 % (2-12); NEUTROPHILS % (AUTO) 62.7 % (42-75); PLATELET COUNT 124 X10'3 (140-440); WHITE BLOOD COUNT 4.8 X10'3 (4.5-11.0)
[2021-05-15 07:00] VITALS: BP 88/55
[2021-05-15 07:16] LABS: ALANINE AMINOTRANSFERASE 8 U/L (12-78); ALBUMIN 1.7 G/DL (3.4-5.0); ALBUMIN/GLOBULIN RATIO 0.5 (1.1-1.5); ALKALINE PHOSPHATASE 52 IU/L (46-116); ANION GAP 7 (8-16); ASPARTATE AMINO TRANSFERASE 15 U/L (10-37); BILIRUBIN,TOTAL 0.3 MG/DL (0.1-1.0); BLOOD UREA NITROGEN 21 MG/DL (7-18); BUN/CREATININE RATIO 19.1 (6.6-38.0); CHLORIDE 105 MMOL/L (99-107); GLUCOSE 90 MG/DL (70-104); POTASSIUM 4.3 MMOL/L (3.5-5.1); SODIUM 138 MMOL/L (135-145); TOTAL PROTEIN 5.1 G/DL (6.4-8.2); eGFR 50 ML/MIN
[2021-05-15] MEDS ORDERED: midodrine 5mg tablet PO SCH (08:00)
[2021-05-15] MEDS: oxybutynin 5mg tablet PO SCH ×2 (08:34→20:54)
[2021-05-15] MEDS: celeCOXIB 100mg capsule PO SCH ×2 (08:34→20:53)
[2021-05-15] MEDS: divalproex 250mg tablet, delayed-release PO SCH ×2 (08:34→20:54)
[2021-05-15] MEDS: magnesium oxide 400mg tablet PO SCH ×3 (08:34→20:54)
[2021-05-15] MEDS: nystatin 15 GM powder TP SCH ×2 (08:35→20:54)
[2021-05-15] MEDS: nicotine 21mg patch - 24 hr TD SCH (08:35)
[2021-05-15 10:01] LABS: C DIFF ANTIGEN NEGATIVE (NEGATIVE); C DIFF SPECIMEN=DIARRHEA? ACCEPTABLE; C DIFFICILE TOXINS A&B NEGATIVE (Neg)
[2021-05-15] MEDS ORDERED: normal saline 1000ml 1,000 ML IVB ONE (10:50)
[2021-05-15 11:00] VITALS: BP 94/53
--- NOTE | 2021-05-15 11:08 | NUR ---
Initial: Pt transfer from [facility], s/p R knee arthroplasty 05/11. Per previous RD assessment on 05/10 pt w/ mostly 100% of meals on Regular diet and 100% of Ensure High protein QD. Pt currently on Regular diet w/ mostly 100% intake of meals and 100% of first ONS meeting needs. LBM 05/14. No nutrition intervention implemented at this time, will continue to monitor. Recs: 1. Continue Regular diet as tolerated 2. Ensure High Protein QD per MD 3. Bowel care per rx 4. Weekly wts Addendum: 05/15/21 at [address] Amended: Links added.
[2021-05-15 12:07] LABS: HEMOGLOBIN 8.7 g/dl (12.0-16.0); MEAN CORPUSCULAR HEMOGLOBIN 32.2 PG (27.0-31.0); MEAN CORPUSCULAR HGB CONC 33.5 g/dL (33.0-36.5); MEAN CORPUSCULAR VOLUME 96.2 FL (78-98); PLATELET COUNT 149 X10'3 (140-440); RED BLOOD COUNT 2.71 X10'6 (4.20-5.60); RED CELL DISTRIBUTION WIDTH 14.8 % (11.5-14.5); WHITE BLOOD COUNT 6.3 X10'3 (4.5-11.0)
--- NOTE | 2021-05-15 12:24 | NUR ---
PER DR WEAVER, OK TO GIVE LOVENOX IF HEMOGLOBIN IS 7.9 OR ABOVE ON REDRAW
[2021-05-15] MEDS: normal saline 1000ml 1,000 ML IV SCH (12:35)
[2021-05-15] MEDS: enoxaparin 40mg/0.4ml syringe SQ SCH (12:36)
[2021-05-15] MEDS ORDERED: magnesium 4gm in 100ml NS 100 ML IV PRN (12:55)
[2021-05-15] MEDS ORDERED: magnesium 2GM in 50ml NS 50 ML IV PRN (12:55)
[2021-05-15] MEDS ORDERED: potassium Cl 20 mEq SR tablet PO PRN ×2 (12:55)
[2021-05-15] MEDS ORDERED: magnesium Cl slow-release 64mg tablet PO PRN (12:55)
[2021-05-15] MEDS ORDERED: potassium Cl 40MEQ/1/2NS 520ml 520 ML IV PRN (12:55)
[2021-05-15 13:14] LABS: MAGNESIUM 2.3 MG/DL (1.5-2.4)
[2021-05-15] MEDS: lactose-reduced food (Ensure High Protein) 237ml bottle PO SCH (18:48)
--- NOTE | 2021-05-15 19:09 | NUR ---
report given to Sid CLEVELAND. patient awake in bed, no signs of distress. all questions answered
[2021-05-15 19:15] VITALS: BP 102/65
[2021-05-15] MEDS: K and/or MAG REPLACEMENT MC SCH (20:00)
[2021-05-15] MEDS: sennosides 8.6mg tablet PO SCH (20:55)
[2021-05-15] MEDS: sertraline 25mg tablet PO SCH (20:55)
[2021-05-16 02:37] LABS: OCCULT BLOOD STOOL NEGATIVE (Neg)
[2021-05-16 06:09] LABS: BASOPHILS % (AUTO) 0.2 % (0-1); EOSINOPHILS # (AUTO) 0.1 X10'3 (0-0.9); EOSINOPHILS % (AUTO) 1.8 % (0-6); HEMATOCRIT 23.7 % (35.0-45.0); LYMPHOCYTES # (AUTO) 0.8 X10'3 (1.1-4.8); LYMPHOCYTES % (AUTO) 18.7 % (21-51); MEAN CORPUSCULAR HEMOGLOBIN 32.4 PG (27.0-31.0); MEAN CORPUSCULAR HGB CONC 33.7 g/dL (33.0-36.5); MEAN CORPUSCULAR VOLUME 96.2 FL (78-98); MEAN PLATELET VOLUME 9.7 FL (7.4-10.4); MONOCYTES # (AUTO) 0.6 X10'3 (0-0.9); MONOCYTES % (AUTO) 14.5 % (2-12); NEUTROPHILS # (AUTO) 2.8 X10'3 (1.8-7.7); NEUTROPHILS % (AUTO) 64.8 % (42-75); PLATELET COUNT 177 X10'3 (140-440); RED BLOOD COUNT 2.46 X10'6 (4.20-5.60); RED CELL DISTRIBUTION WIDTH 14.9 % (11.5-14.5); WHITE BLOOD COUNT 4.3 X10'3 (4.5-11.0)
[2021-05-16 06:47] LABS: ALANINE AMINOTRANSFERASE 13 U/L (12-78); ALBUMIN 1.7 G/DL (3.4-5.0); ALBUMIN/GLOBULIN RATIO 0.5 (1.1-1.5); ALKALINE PHOSPHATASE 57 IU/L (46-116); ANION GAP 11 (8-16); ASPARTATE AMINO TRANSFERASE 16 U/L (10-37); BILIRUBIN,TOTAL 0.3 MG/DL (0.1-1.0); BLOOD UREA NITROGEN 18 MG/DL (7-18); BUN/CREATININE RATIO 19.8 (6.6-38.0); CALCIUM 8.1 MG/DL (8.5-10.1); CHLORIDE 107 MMOL/L (99-107); CREATININE 0.91 MG/DL (0.40-0.90); GLUCOSE 90 MG/DL (70-104); MAGNESIUM 2.1 MG/DL (1.5-2.4); PHOSPHORUS 3.4 MG/DL (2.3-4.5); POTASSIUM 4.3 MMOL/L (3.5-5.1); SODIUM 143 MMOL/L (135-145); TOTAL CARBON DIOXIDE 24.6 MMOL/L (24-32); TOTAL PROTEIN 5.3 G/DL (6.4-8.2); eGFR 63 ML/MIN
--- NOTE | 2021-05-16 06:52 | NUR ---
Patient in room [facility] 350. I have received report from Sid Lau and had the opportunity to ask questions and assume patient care.
--- NOTE | 2021-05-16 06:54 | NUR ---
Problems reprioritized. Patient report given, questions answered & plan of care reviewed with SANDY. Addendum: 05/16/21 at 0655 by Ollie Dale RN Amended: Links added.
[2021-05-16 07:27] VITALS: BP 111/64
[2021-05-16] MEDS: K and/or MAG REPLACEMENT MC SCH ×2 (08:00→20:00)
[2021-05-16] MEDS: celeCOXIB 100mg capsule PO SCH ×2 (08:01→18:56)
[2021-05-16] MEDS: magnesium oxide 400mg tablet PO SCH ×3 (08:01→21:01)
[2021-05-16] MEDS: divalproex 250mg tablet, delayed-release PO SCH ×2 (08:01→18:55)
[2021-05-16] MEDS: oxybutynin 5mg tablet PO SCH ×2 (08:02→21:01)
[2021-05-16] MEDS: enoxaparin 40mg/0.4ml syringe SQ SCH (08:02)
[2021-05-16] MEDS: nicotine 21mg patch - 24 hr TD SCH (08:02)
[2021-05-16] MEDS: nystatin 15 GM powder TP SCH ×2 (08:05→21:01)
[2021-05-16 10:05] LABS: FERRITIN 268 NG/ML (8-252)
[2021-05-16] MEDS ORDERED: loperamide 2mg capsule PO PRN (10:10)
[2021-05-16] MEDS ORDERED: loperamide 2mg capsule PO ONE (10:10)
--- NOTE | 2021-05-16 10:30 | NUR ---
Called dr Carter office, Raul said pt is good for discharge if cleared by PT. I paged PT to see the status of her being cleared. I also contacted the conservator about discharge and they are ok with Pt going back to behavioral health.
[2021-05-16 10:47] LABS: % IRON SATURATION 16 % (11-46); IRON 26 UG/DL (49-151); TOTAL IRON BINDING CAPACITY 158 UG/DL (259-388)
--- NOTE | 2021-05-16 10:50 | NUR ---
per Martha with PT pt is good for discharge to behavioral health. and they will continue to work with her over there and staff.
[2021-05-16 11:00] VITALS: BP 107/60
[2021-05-16] MEDS: normal saline 1000ml 1,000 ML IV SCH ×2 (13:30)
--- NOTE | 2021-05-16 13:36 | NUR ---
Page Sent PAGER ID: [phone] MESSAGE: [phone] Suresh, can you please call me about pt discharge back to behavioral health. thanks mary [phone]
--- NOTE | 2021-05-16 13:42 | NUR ---
contacted nursing supervisor boilermaking shop about behavioral health concerned about pt being discharged to them. she said she will contact Erin over on behavioral health and figure out what is going on with pt discharge.
--- NOTE | 2021-05-16 18:15 | NUR ---
Problems reprioritized. Patient report given, questions answered & plan of care reviewed with Paty CLEVELAND.
--- NOTE | 2021-05-16 18:30 | NUR ---
Patient in room [facility] 350. I have received report from MEGHA Gray and had the opportunity to ask questions and assume patient care with Oscar Hardin. Addendum: 05/16/21 at 2344 by Vannesa Hall RN Amended: Links added.
[2021-05-16] MEDS: lactose-reduced food (Ensure High Protein) 237ml bottle PO SCH (18:59)
[2021-05-16 19:00] VITALS: BP 97/58
[2021-05-16] MEDS: sennosides 8.6mg tablet PO SCH (21:00)
[2021-05-16] MEDS: sertraline 25mg tablet PO SCH (21:01)
[2021-05-16] MEDS ORDERED: NICO-687 TOP (21:21)
[2021-05-16] MEDS ORDERED: TRAM50TA2 PO (21:21)
[2021-05-16] MEDS ORDERED: DIVA-74 PO (21:21)
[2021-05-16] MEDS ORDERED: NICO-503 BC (21:21)
[2021-05-16] MEDS ORDERED: ALBU2.5V13 NEB (21:21)
[2021-05-16] MEDS ORDERED: MAGN400C PO (21:21)
[2021-05-16] MEDS ORDERED: NYSPWD TP (21:21)
[2021-05-16] MEDS ORDERED: TRAZ-251 PO (21:21)
[2021-05-16] MEDS ORDERED: CELE-193 PO (21:21)
[2021-05-16] MEDS ORDERED: OXYB5TAB16 PO ×2 (21:21)
[2021-05-16] MEDS ORDERED: SERT25TA PO (21:21)
[2021-05-16] MEDS ORDERED: PALI234D IM (21:21)
--- NOTE | 2021-05-16 22:00 | NUR ---
Student documentation: I have reviewed and agree with all interventions, assessments performed and documented by Addendum: 05/17/21 at [facility] by Vannesa Hall RN Amended: Links added.
[2021-05-29] MEDS ORDERED: NICO-687 TOP (15:20)
[2021-05-29] MEDS ORDERED: DIVA-74 PO (15:20)
[2021-05-29] MEDS ORDERED: NYSPWD TP (15:20)
[2021-05-29] MEDS ORDERED: MAGN400C PO (15:20)
[2021-05-29] MEDS ORDERED: CYAN500T71 PO (15:20)
[2021-05-29] MEDS ORDERED: LACT1CAP26 PO (15:20)
[2021-05-29] MEDS ORDERED: ONDA4TAB12 PO (15:20)
[2021-05-29] MEDS ORDERED: ALBU2.5V13 NEB (15:20)
[2021-05-29] MEDS ORDERED: TRAZ-251 PO (15:20)
[2021-05-29] MEDS ORDERED: CEPH-585 PO (15:20)
[2021-05-29] MEDS ORDERED: HYDR-3686 PO (15:20)
[2021-05-29] MEDS ORDERED: TRAM50TA2 PO (15:20)
[2021-05-29] MEDS ORDERED: CELE-193 PO (15:20)
[2021-05-29] MEDS ORDERED: NICO-503 BC (15:20)
[2021-05-29] MEDS ORDERED: SERT-433 PO (15:20)
[2021-05-29] MEDS ORDERED: RIVA20TA PO (15:20)
[2021-05-29] MEDS ORDERED: OXYB5TAB16 PO ×2 (15:20)
[2021-05-30] MEDS ORDERED: TRAM50TA2 PO (13:24)
[2021-06-08] MEDS ORDERED: paliperidone palmitate 156 mg/ml inj.**IM only IM ONE (09:00)
== END 2021-05-16 22:00 | DRG 470 ==
LOC: UNDOADMIN 13:01 → PAS IN 13:01 → SUR 3N 20:50
PROVIDERS: ADMIT Orthopaedic Surgery; ATTEND Orthopaedic Surgery
PROC: 3E0T3BZ Introduction of Anesthetic Agent into Peripheral Nerves and Plexi, Percutaneous Approach (ICD-10-PCS; 2021-05-11)
PROC: 0SRC0J9 Replacement of Right Knee Joint with Synthetic Substitute, Cemented, Open Approach (ICD-10-PCS; principal; 2021-05-11 17:02)
DX: M17.11 Unilateral primary osteoarthritis, right knee (principal); N17.9 Acute kidney failure, unspecified; D64.9 Anemia, unspecified; E86.0 Dehydration; F15.90 Other stimulant use, unspecified, uncomplicated; F17.210 Nicotine dependence, cigarettes, uncomplicated; F25.9 Schizoaffective disorder, unspecified; F31.9 Bipolar disorder, unspecified; M54.9 Dorsalgia, unspecified; Z20.822 Contact with and (suspected) exposure to COVID-19; E66.9 Obesity, unspecified; G89.29 Other chronic pain; Z60.2 Problems related to living alone; I10 Essential (primary) hypertension; I95.1 Orthostatic hypotension; J44.9 Chronic obstructive pulmonary disease, unspecified; K52.9 Noninfective gastroenteritis and colitis, unspecified; M21.061 Valgus deformity, not elsewhere classified, right knee; Z82.0 Family history of epilepsy and other diseases of the nervous system; Z86.718 Personal history of other venous thrombosis and embolism; Z88.8 Allergy status to other drugs, medicaments and biological substances; Z71.6 Tobacco abuse counseling; Z79.899 Other long term (current) drug therapy; Z98.891 History of uterine scar from previous surgery; Z68.31 Body mass index [BMI] 31.0-31.9, adult
CPT/HCPCS: 36415; 73560; 80051; 80053; 82272; 82607; 82728; 82948; 83540; 83550; 83735; 84100; 85007; 85025; 85027; 87045; 87046; 87081; 87324; 87449; 87635; 89055; 97110; 97116; 97161; 97530; A4215; A7000; C1713; C1758; C1776; C9250; G0378; J0171; J0690; J1650; J2250; J2270; J2704; J2795; J3010; J3370; J3480; J7030; J7040; J7120; Q0177

== ENCOUNTER 2025-03-12 13:19 | Emergency (ER) | payer MEDICARE, MEDICAID ==
[~2025-03-12] VITALS: Ht 172.7 cm; Wt 116.0 kg
[~2025-03-12 13:19] MED LIST changes: +ALBU2.5V13 NEB; -ALBU8HFA PO; +CELE-193 PO; +CEPH-585 PO; +CYAN500T71 PO; +DIVA-74 PO; -DIVA-76 PO; -DIVA250T4 PO; -FURO-150 PO; -LACT-228 PO; +LACT1CAP26 PO; +MAGN400C PO; -MAGN400T56 PO; +NICO-503 BC; -NICO-687 TD; +NICO-687 TOP; -NICO-907 BC; +ONDA-243 PO; -OXYB10TA4 PO; -OXYB5TAB16 PO; +OXYB5TAB21 PO; -PALI156D IM; +PALI234D IM; +RIVA20TA PO; -ROPIVAcaine inj 200 MG, epiNEPHrine inj 0.6 MG, morphine 10mg/ml inj. 5 MG in normal sa... IU ONE; -SALI45SP MM; -SERT-432 PO; +SERT-433 PO; +SERT25TA PO; -TEMA15CA PO; +TRAM50TA2 PO; -VANCOMYCIN 1,500MG in NS 500ml IVPB IV ONE; -cefazolin/dext.iso 2gm/50ml 50 ML IV ONE; -famotidine 20mg tablet PO ONE; -ringers solution, lacted 1,000 ML IV SCH; -tranexamic acid inj. 1,000 MG in normal saline 100 ML IV ONE
--- NOTE | 2025-03-12 13:48 | Physician Documentation ---
History of Present Illness ~ Chief Complaint: 5150 Stated Complaint: Time Seen by MD: 13:35 Primary Medical Doctor: RIVERA Méndez This is a 64-year-old female who presents by EMS on a written 5150 due to manic episode, per EMS patient is followed by mental health outreach team who has noted increasing leg symptoms over the last four days, patient was evaluated at [facility] and placed on a written 5150 due to manic episode. Medication Reconciliation Allergies: Coded Allergies: medroxyprogesterone (Verified Allergy, Intermediate, rash, 06/14/20) lithium (Unverified Allergy, Unknown, 06/14/20) Scheduled Aripiprazole (Abilify), 1 TAB PO DAILY, (Reported) Bupropion Hcl (Wellbutrin Xl), 1 TAB PO DAILY, (Reported) Cephalexin*Monohydrate* (Keflex*), 1 CAP PO QID Divalproex Sodium (Depakote ER), 2 TAB PO HS, (Reported) Sertraline Hcl (Zoloft), 2 TAB PO HS, (Reported) Trazodone HCl (Trazodone HCl), 2 TAB PO HS, (Reported) Scheduled PRN Hydroxyzine Hcl* (Atarax*), 1 TAB PO Q12H PRN for anxiety, (Reported) Discontinued Medications Albuterol Sulfate (Albuterol Sulfate), 1 VIAL NEB Q4HPRN Discontinued Reason: ADR (Adverse Drug Rxn) Celecoxib* (Celebrex*), 200 MG PO BID Discontinued Reason: ADR (Adverse Drug Rxn) Cephalexin*Monohydrate* (Keflex*), 500 MG PO Q8H Discontinued Reason: ADR (Adverse Drug Rxn) Cyanocobalamin* (Vitamin B-12*), 1,000 MCG PO DAILY Discontinued Reason: ADR (Adverse Drug Rxn) Divalproex Sodium (Divalproex Sodium), 3 TAB PO BID Discontinued Reason: ADR (Adverse Drug Rxn) Hydroxyzine Hcl* (Atarax*), 25 MG PO Q6H PRN for for anxiety/agitation Discontinued Reason: ADR (Adverse Drug Rxn) Lactobacillus Rhamnosus (Culturelle), 10,000 MMU PO Q12H Discontinued Reason: ADR (Adverse Drug Rxn) Magnesium Oxide (Magnesium), 400 MG PO TID Discontinued Reason: ADR (Adverse Drug Rxn) Nicotine 21 MG Patch* (Habitrol 21 MG Patch*), 1 PATCH TOP DAILY Discontinued Reason: ADR (Adverse Drug Rxn) Nicotine Polacrilex* (Commit Lozenge*), 2 MG BC Q2H PRN for nicotine craving Discontinued Reason: ADR (Adverse Drug Rxn) Nystatin (NYSTOP powder), 1 APPLIC TP BID Discontinued Reason: ADR (Adverse Drug Rxn) ONDANSETRON ODT 4mg tablet (Ondansetron Odt), 4 MG PO Q8H PRN for nausea/vomiting Discontinued Reason: ADR (Adverse Drug Rxn) Oxybutynin Chloride (Oxybutynin Chloride), 10 MG PO HS Discontinued Reason: ADR (Adverse Drug Rxn) Oxybutynin Chloride (Oxybutynin Chloride), 5 MG PO DAILY Discontinued Reason: ADR (Adverse Drug Rxn) Paliperidone Palmitate (Invega Sustenna), 1 SYR IM Q30D, (Reported) Discontinued Reason: ADR (Adverse Drug Rxn) Rivaroxaban (Xarelto), 20 MG PO QDD Discontinued Reason: ADR (Adverse Drug Rxn) Sertraline HCl (Sertraline HCl), 100 MG PO HS Discontinued Reason: ADR (Adverse Drug Rxn) Sertraline Hcl* (Zoloft*), 3 TAB PO HS, (Reported) Discontinued Reason: ADR (Adverse Drug Rxn) Tramadol HCl (Tramadol HCl), 2 TABLET PO Q8H PRN for moderate or severe pain 4- 10 Discontinued Reason: ADR (Adverse Drug Rxn) Trazodone HCl (Trazodone HCl), 50 MG PO HSMR1 PRN for sleep Discontinued Reason: ADR (Adverse Drug Rxn) Past Medical History Past Medical History: COPD, Psychosis Past Surgical History: noncontributory Patient History: Alzheimer's disease MOTHER, Onset:Unknown Alcohol Use: Occasionally Drug Use: methamphetamine Lives In: Home Review of Systems ROS As stated above in the HPI, otherwise all systems are reviewed and negative. Physical Exam Vital Signs: Temperature: 97.3, Source: Temporal, Heart Rate: 83, Respiratory Rate: 16, BP: 102/65, Pulse Oximetry: 94, Weight: 116.000 Oxygen Flow Rate: 0 Physical Exam VITALS: Reviewed and as above. GENERAL: Alert, nontoxic appearing, no apparent distress. HEENT: PERRLA, EOMI RESPIRATORY: No increased work of breathing, no respiratory distress, speaking in full clear sentences, clear lung sounds in all ernst CV: Regular rate and rhythm no murmur BACK: No CVA tenderness SKIN: Warm and dry NEURO: GCS 15 PSYCH: Pressured tangential disorganized speech Progress Results/Orders Results/Orders Orders - YE CHRIS Med Rec (03/12/25 13:39) 75g Carb Controlled (03/12/25 Dinner) Close Observation Level (03/12/25 13:39) Covid19 Binax Poc Result Entry (03/12/25 13:39) Aripiprazole Tablet (Abilify 10mg Tablet (03/13/25 08:00) Bupropion Hcl 150mg Xl 24 Hr (Wellbutrin (03/13/25 08:00) Divalproex Sod Er-24 Hr Tablet (Depakote (03/12/25 21:00) Hydroxyzine Tablet (Atarax Tablet) (03/12/25 18:00) Sertraline Tablet (Zoloft Tablet) (03/12/25 21:00) Trazodone Tablet (Desyrel Tablet) (03/12/25 21:00) Cephalexin Capsule (Keflex Capsule) (03/13/25 08:00) Completed Orders - YE CHRIS Cbc/Diff (03/12/25 13:39) Drug Screen, Urine (03/12/25 13:39) Ethanol (03/12/25 13:39) TSH (03/12/25 13:39) BMP (03/12/25 13:39) Olanzapine Disint. Tablet (Zyprexa Zydis (03/12/25 17:55) Ua With Microscopic (03/12/25 20:47) Medications Received in ER Medications (Trade) Dose Ordered Sig/Polly Route PRN Reason Start Time Stop Time Status Last Admin Dose Admin (Abilify 10mg tablet) 10 mg DAILY PO 03/13/25 08:00 03/13/25 07:33 10 MG (Wellbutrin Xl 150mg) 150 mg DAILY PO 03/13/25 08:00 03/13/25 07:33 150 MG (Keflex capsule) 500 mg QID PO 03/13/25 08:00 03/18/25 08:00 03/13/25 07:32 500 MG (Ativan tablet) 1 mg ONCE ONCE PO 03/13/25 08:30 03/13/25 08:31 DC 03/13/25 08:39 1 MG Vital Signs 03/12/25 03/12/25 03/12/25 03/13/25 13:31 13:53 17:32 06:15 Temp 97.3 97.8 Pulse 83 83 Resp 16 16 18 B/P (MAP) 102/65 132/86 (101) Pulse Ox 94 5 O2 Flow Rate 0 03/13/25 03/13/25 07:00 08:39 Temp 97.8 Pulse 79 Resp 16 18 B/P (MAP) 130/78 (95) Pulse Ox 99 O2 Flow Rate 0 Laboratory Tests Test 03/12/25 13:48 03/12/25 13:56 03/12/25 20:47 SARS-CoV-2 Antigen (Rapid) Negative White Blood Count 8.4 Red Blood Count 4.18 L Hemoglobin 13.3 Hematocrit 38.9 Mean Corpuscular Volume 93.1 Mean Corpuscular Hemoglobin 31.7 H Mean Corpuscular Hemoglobin Concent 34.1 Red Cell Distribution Width 13.2 Platelet Count 221 Mean Platelet Volume 8.8 Neutrophils (%) (Auto) 67.5 Lymphocytes (%) (Auto) 21.4 Monocytes (%) (Auto) 7.7 Eosinophils (%) (Auto) 2.9 Basophils (%) (Auto) 0.5 Neutrophils # (Auto) 5.7 Lymphocytes # (Auto) 1.8 Monocytes # (Auto) 0.6 Eosinophils # (Auto) 0.2 Basophils # (Auto) 0.0 CBC Comment Sodium Level 136 Potassium Level 4.2 Chloride Level 100 Carbon Dioxide Level 29.9 Anion Gap 6 L Blood Urea Nitrogen 18 Creatinine 1.54 H Estimated GFR/1.73 m2 34 BUN/Creatinine Ratio 11.7 Glucose Level 104 Calcium Level 7.9 L Albumin 3.4 Thyroid Stimulating Hormone (TSH) 1.79 Chemistry Comments Ethyl Alcohol Level < 10 Urine Specimen Description Non-specified Urine Color Yellow Urine Clarity Slightly cloudy Urine pH 5.5 Urine Specific [place] 1.010 Urine Protein Negative Urine Glucose (UA) Negative Urine Ketones Negative Urine Occult Blood Trace-intact Urine Nitrite Negative Urine Bilirubin Negative Urine Urobilinogen 0.2 Urine Leukocyte Esterase Moderate H Urine RBC 0-2 Urine WBC 10-20 H Urine WBC Clumps Few Urine Squamous Epithelial Cells None seen Urine Bacteria 2+ Volume Urine Centrifuged 10 ml Urine Comment Urine Opiates Screen Negative Urine Methadone Screen Negative Urine Fentanyl Screen Negative Urine Barbiturates Screen Negative Urine Phencyclidine Screen Negative Urine Amphetamines Screen Negative Urine Benzodiazepines Screen Negative Urine Cocaine Screen Negative Urine Cannabinoids Screen Negative Drug Screen Comment Medical Decision Making Findings This 64-year-old female presented by EMS on a written 5150 due to manic episode, patient reported no physical symptoms. Patient was otherwise well-appearing with benign physical exam labs did not demonstrate evidence of acute process. Patient is cleared for evaluation by [facility], there was evidence of uncomplicated urinary tract infection though I do not believe this is contributing to patient's current condition, patient is appropriate for outpatient treatment, and patient will be treated with a course of oral antibiotics for UTI. Transfer orders for [facility]: At this time there is no evidence of an emergent medical condition that would preclude (admission/transfer) to a psychiatric unit via [facility] protocol for further psychiatric, as well as medical evaluation and treatment. At this time I have no reason to believe that transfer via [facility] protocol would have serious medical compromise in the patient's health. Differential Dx:Considerations: Include: Alcohol abuse, Anxiety, Bipolar disorder, Conversion disorder, Encephaloathy, Homicidal, Panic disorder, Personality disorder, Schizophrenia, Substance abuse, Suicidal Departure Disposition: 64 [facility] Impression: Primary Impression: Psychosis Qualified Codes: F29 - Unspecified psychosis not due to a substance or known physiological condition Condition: Guarded Additional Instructions: Transfer orders for [facility]: At this time there is no evidence of an emergent medical condition that would preclude (admission/transfer) to a psychiatric unit via [facility] protocol for further psychiatric, as well as medical evaluation and treatment. At this time I have no reason to believe that transfer via [facility] protocol would have serious medical compromise in the patient's health. Referrals: NO PRIMARY CARE PROVIDER (PCP) Prescriptions Cephalexin*Monohydrate* (Keflex*) 500 Mg Capsule 1 CAP PO QID for 5 Days, #20 CAP Prov: YE CHRIS 03/12/25 Signature Scribe Signature: No scribe Attestation: The note accurately reflects work and decisions made by me.ERICK Fitzgerald 03/13/25 12:00 YE CHRIS Mar 12, 2025 13:48
[2025-03-12 14:04] LABS: MEAN PLATELET VOLUME 8.8 FL (7.4-10.4); RED CELL DISTRIBUTION WIDTH 13.2 % (11.5-14.5)
[2025-03-12 14:27] LABS: CREATININE 1.54 MG/DL (0.40-0.90); ETHANOL < 10 MG/DL (<10); TOTAL CARBON DIOXIDE 29.9 MMOL/L (24-32); eCRCL 37 ML/MIN; eGFR 34 ML/MIN
[2025-03-12] MEDS ORDERED: BUPR-94 PO (17:45)
[2025-03-12] MEDS ORDERED: SERT100T PO (17:45)
[2025-03-12] MEDS ORDERED: HYDR-3686 PO (17:45)
[2025-03-12] MEDS ORDERED: TRAZ-256 PO (17:45)
[2025-03-12] MEDS ORDERED: ARIP10TA9 PO (17:45)
[2025-03-12] MEDS ORDERED: DIVA250T2 PO (17:45)
[2025-03-12] MEDS: OLANZapine 5mg rapidly disint. tablet PO ONE (18:05)
[2025-03-12 21:10] LABS: LEUKOCYTE ESTERASE ,URINE MODERATE (Neg); NITRITES, URINE NEGATIVE (Neg); OCCULT BLOOD,URINE TRACE-INTACT (Neg)
[2025-03-12 21:12] LABS: UA COLLECTION TYPE NON-SPECIFIED
[2025-03-12 21:13] LABS: URINE AMPHETAMINE SCREEN NEGATIVE (Neg); URINE BARBITUATE SCREEN NEGATIVE (Neg); URINE BENZODIAZEPINES SCREEN NEGATIVE (Neg); URINE CANNABINOID SCREEN NEGATIVE (Neg); URINE COCAINE SCREEN NEGATIVE (Neg); URINE METHADONE SCREEN NEGATIVE (Neg); URINE OPIATE SCREEN NEGATIVE (Neg); URINE PHENCYCLIDINE SCREEN NEGATIVE (Neg)
[2025-03-12 21:20] LABS: SQUAMOUS EPITHELIAL CELL,UR NONE SEEN /LPF (FEW); WBC CLUMPS,URINE FEW /HPF (NEGATIVE)
[2025-03-12] MEDS ORDERED: CEPH-585 PO (21:41)
[2025-03-12] MEDS: divalproex sod 250mg ER (24-hour) tablet PO SCH (22:22)
[2025-03-13 07:00] VITALS: BP 130/78; PULSE 79; TEMP 97.8; O2SAT 99
[2025-03-13] MEDS: BUPROPION HCL 150MG XL 24 HR 150 MG TAB PO SCH (07:33)
[2025-03-13 08:39] VITALS: RESP 18
== END 2025-03-13 13:45 ==
LOC: ER 13:20
DX: F29 Unspecified psychosis not due to a substance or known physiological condition (principal); G30.9 Alzheimer's disease, unspecified; F02.83 Dementia in other diseases classified elsewhere, unspecified severity, with mood disturbance; J44.9 Chronic obstructive pulmonary disease, unspecified; F15.90 Other stimulant use, unspecified, uncomplicated; Z88.8 Allergy status to other drugs, medicaments and biological substances; Z79.899 Other long term (current) drug therapy; Z20.822 Contact with and (suspected) exposure to COVID-19
CPT/HCPCS: 36415; 80048; 80305; 81001; 84443; 85025; 87811; 99285; C1758; G0480; Q0177; 80320

== ENCOUNTER 2025-03-27 10:44 | Inpatient (IN) | payer MEDICARE, MEDICAID ==
[~2025-03-27] VITALS: Ht 175.3 cm; Wt 142.0 kg
[~2025-03-27 10:44] MED LIST changes: -ALBU2.5V13 NEB; +ARIP10TA9 PO; +BUPR-94 PO; -CELE-193 PO; -CEPH-585 PO; -CYAN500T71 PO; -DIVA-74 PO; +DIVA250T2 PO; -LACT1CAP26 PO; -MAGN400C PO; -NICO-503 BC; -NICO-687 TOP; -NYSPWD TP; -ONDA-243 PO; -OXYB5TAB21 PO; -PALI234D IM; -RIVA20TA PO; -SERT-433 PO; +SERT100T PO; -SERT25TA PO; -TRAM50TA2 PO; -TRAZ-251 PO; +TRAZ-256 PO
--- NOTE | 2025-03-27 10:57 | Physician Documentation ---
History of Present Illness ~ Stated Complaint: 5150 Time Seen by MD: 10:54 Primary Medical Doctor: RIVERA Méndez HPI 64-year-old female with a history of schizophrenia presents from the [facility] and [facility] for suspected psychosis. According to EMS patient was recently transported to [place] for psychiatric treatment and then was discharged yesterday and sent back to [facility]. [facility] evaluated patient and reports that she is unable to care for herself and is gravely disabled. They wrote a 5150 in and sent her via EMS to the ED. Medication Reconciliation Allergies: Coded Allergies: medroxyprogesterone (Verified Allergy, Intermediate, rash, 06/14/20) lithium (Unverified Allergy, Unknown, 06/14/20) Scheduled Aripiprazole* (Abilify*), 20 MG PO DAILY, (Reported) Bupropion Hcl (Wellbutrin Xl), 1 TAB PO DAILY, (Reported) Divalproex ER* (Depakote ER*), 1 TAB PO HS, (Reported) Gabapentin (Gabapentin), 2 CAP PO TID, (Reported) Rivaroxaban (Xarelto), 1 TAB PO HS, (Reported) Sertraline HCl (Sertraline HCl), 1 TAB PO DAILY, (Reported) Trazodone HCl (Trazodone HCl), 1 TAB PO HS, (Reported) Scheduled PRN Albuterol Sulfate (Ventolin Hfa), 2 PUFFS INH Q6H PRN for wheezing, (Reported) Hydroxyzine Hcl* (Atarax*), 1 TAB PO BID PRN for for anxiety/agitation, (Reported) Discontinued Medications Aripiprazole (Abilify), 1 TAB PO DAILY, (Reported) Discontinued Reason: MD order Bupropion Hcl (Wellbutrin Xl), 1 TAB PO DAILY, (Reported) Discontinued Reason: Other Divalproex Sodium (Depakote ER), 2 TAB PO HS, (Reported) Discontinued Reason: Other Hydroxyzine Hcl* (Atarax*), 1 TAB PO Q12H PRN for anxiety, (Reported) Discontinued Reason: Other Sertraline Hcl (Zoloft), 2 TAB PO HS, (Reported) Discontinued Reason: Other Trazodone HCl (Trazodone HCl), 2 TAB PO HS, (Reported) Discontinued Reason: Other Past Medical History Past Medical History: COPD, Psychosis Past Surgical History: noncontributory Patient History: Alzheimer's disease MOTHER, Onset:Unknown Alcohol Use: Occasionally Drug Use: methamphetamine Lives In: Home Progress Progress Note 7:26 a.m. received from night physician in sign-out 64-year-old female gravely disabled awaiting placement no acute overnight event 1200 pm patient on the bathroom floor tonic clonic seizure, cyanotic and apneic, jaw thrusted successfully. Glucose wnl. CT head non acute Results/Orders Reviewed/noted all lab results: Yes Results/Orders Orders - NEELA DEL TORO MD BMP (03/28/25 11:56) Ct Head (03/28/25 11:57) Page Hospitalist (03/28/25 12:56) Fill Out Med Reconciliation (03/28/25 12:56) Valproate (03/28/25 11:55) Completed Orders - NEELA DEL TORO MD Acetaminophen 325mg Tablet (Tylenol Tabl (03/28/25 06:45) Cbc/Diff (03/28/25 11:56) Hs Troponin I W Calculations (03/28/25 11:56) Ct Head (03/28/25 11:57) Medications Received in ER Medications (Trade) Dose Ordered Sig/Polly Route PRN Reason Start Time Stop Time Status Last Admin Dose Admin (Abilify 10mg tablet) 20 mg DAILY PO 03/28/25 08:00 03/28/25 07:13 20 MG (Zoloft tablet) 100 mg DAILY PO 03/28/25 08:00 03/28/25 07:13 100 MG (Wellbutrin Xl 150mg) 150 mg DAILY PO 03/28/25 08:00 03/28/25 07:13 150 MG (Tylenol tablet) 650 mg ONCE ONCE PO 03/28/25 06:45 03/28/25 06:46 DC 03/28/25 07:14 650 MG Vital Signs 03/27/25 03/27/25 03/27/25 03/27/25 10:52 11:57 17:57 21:41 Temp 97.9 97.9 Pulse 88 98 Resp 18 16 16 16 B/P (MAP) 171/99 144/80 (101) Pulse Ox 97 95 O2 Flow Rate 0 9/27/03/28/25 03/28/25 03/28/25 05:16 08:09 12:00 12:43 Temp 97.8 Pulse 87 80 Resp 18 16 18 B/P (MAP) 150/77 (101) 137/68 (91) Pulse Ox 94 93 O2 Flow Rate 1.0 Laboratory Tests Test 03/27/25 11:19 03/27/25 12:14 03/27/25 14:10 03/28/25 11:49 White Blood Count 6.6 Red Blood Count 3.97 L Hemoglobin 12.5 Hematocrit 36.9 Mean Corpuscular Volume 92.9 Mean Corpuscular Hemoglobin 31.4 H Mean Corpuscular Hemoglobin Concent 33.8 Red Cell Distribution Width 13.1 Platelet Count 229 Mean Platelet Volume 8.9 Neutrophils (%) (Auto) 77.5 H Lymphocytes (%) (Auto) 13.2 L Monocytes (%) (Auto) 8.5 Eosinophils (%) (Auto) 0.4 Basophils (%) (Auto) 0.4 Neutrophils # (Auto) 5.1 Lymphocytes # (Auto) 0.9 L Monocytes # (Auto) 0.6 Eosinophils # (Auto) 0.0 Basophils # (Auto) 0.0 CBC Comment Sodium Level 134 L Potassium Level 4.3 Chloride Level 96 L Carbon Dioxide Level 30.7 Anion Gap 7 L Blood Urea Nitrogen 13 Creatinine 0.95 H Estimated GFR/1.73 m2 59 BUN/Creatinine Ratio 13.7 Glucose Level 94 Calcium Level 8.9 Aspartate Amino Transf (AST/SGOT) 46 H Alanine Aminotransferase (ALT/SGPT) 44 Albumin 3.3 L Thyroid Stimulating Hormone (TSH) 3.17 Chemistry Comments Valproic Acid (Depakene) Level 44 L Ethyl Alcohol Level < 10 Urine Specimen Description Voided Urine Color Yellow Urine Clarity Clear Urine pH 6.5 Urine Specific [place] <=1.005 Urine Protein Negative Urine Glucose (UA) Negative Urine Ketones Trace H Urine Occult Blood Negative Urine Nitrite Negative Urine Bilirubin Negative Urine Urobilinogen 0.2 Urine Leukocyte Esterase Small H Urine RBC 0-2 Urine WBC 30-50 H Urine Squamous Epithelial Cells Many Urine Bacteria Few Volume Urine Centrifuged 10 ml Urine HCG, Qualitative Negative Urine Comment Urine Opiates Screen Negative Urine Methadone Screen Negative Urine Fentanyl Screen Negative Urine Barbiturates Screen Negative Urine Phencyclidine Screen Negative Urine Amphetamines Screen Negative Urine Benzodiazepines Screen Negative Urine Cocaine Screen Negative Urine Cannabinoids Screen Negative Drug Screen Comment SARS-CoV-2 Antigen (Rapid) Negative Glucometer 121 H Test 03/28/25 11:55 03/28/25 12:58 White Blood Count 8.8 Red Blood Count 4.02 L Hemoglobin 12.7 Hematocrit 38.1 Mean Corpuscular Volume 94.8 Mean Corpuscular Hemoglobin 31.6 H Mean Corpuscular Hemoglobin Concent 33.3 Red Cell Distribution Width 13.6 Platelet Count 287 Mean Platelet Volume 8.6 Neutrophils (%) (Auto) 62.9 Lymphocytes (%) (Auto) 26.7 Monocytes (%) (Auto) 9.4 Eosinophils (%) (Auto) 0.5 Basophils (%) (Auto) 0.5 Neutrophils # (Auto) 5.5 Lymphocytes # (Auto) 2.4 Monocytes # (Auto) 0.8 Eosinophils # (Auto) 0.0 Basophils # (Auto) 0.0 CBC Comment Sodium Level 133 L Potassium Level 3.7 Chloride Level 92 L Carbon Dioxide Level 23.5 L Anion Gap 18 H Blood Urea Nitrogen 11 Creatinine 1.17 H Estimated GFR/1.73 m2 46 BUN/Creatinine Ratio 9.4 L Glucose Level 124 H Calcium Level 9.1 Troponin I High Sensitivity 22 Albumin 3.5 Chemistry Comments Glucometer 129 H EKG/XRAY/CT/US/VASC/MRI EKG : Additional Comment EKG time 1147 indication syncope, sinus tachycardia rate 109, Left bundle branch block, no st elevation Departure Disposition: ADMITTED INPATIENT Impression: Primary Impression: Schizoaffective disorder Additional Impressions: Psychosis Seizure Additional Instructions: Transfer orders for [facility]: At this time there is no evidence of an emergent medical condition that would preclude (admission/transfer) to a psychiatric unit via [facility] protocol for further psychiatric, as well as medical evaluation and treatment. At this time I have no reason to believe that transfer via [facility] protocol would have serious medical compromise in the patient's health. Referrals: NO PRIMARY CARE PROVIDER (PCP) Critical Care Note Total Time (mins): 30 Critical Care Note The very real possibility of a deterioration of this patient's condition required the highest level of my preparedness for sudden, emergent intervention. I provided critical care services, which included medication orders, frequent reevaluations of the patient's condition and response to treatment, ordering and reviewing test results, and discussing the case with various consultants. Excludes time spent performing separately billable procedures. The critical care time associated with the care of the patient was thirty minutes for the management of unresponsive episode GCS <8 Signature Scribe Signature: h Attestation: Scribed for Pauline Arellano Health Education Coordinator by Pauline Dee NP . 03/27/25 18:41 PAULINE ARELLANO NP Mar 27, 2025 10:57 NEELA DEL TORO MD Mar 28, 2025 07:27
[2025-03-27 11:39] LABS: MEAN PLATELET VOLUME 8.9 FL (7.4-10.4); RED CELL DISTRIBUTION WIDTH 13.1 % (11.5-14.5)
[2025-03-27] MEDS ORDERED: GABA-530 PO (11:52)
[2025-03-27] MEDS ORDERED: ARIP5TAB12 PO (11:52)
[2025-03-27] MEDS ORDERED: SERT-434 PO (11:52)
[2025-03-27] MEDS ORDERED: ALBU18HF2 INH (11:52)
[2025-03-27 12:04] LABS: CREATININE 0.95 MG/DL (0.40-0.90); ETHANOL < 10 MG/DL (<10); TOTAL CARBON DIOXIDE 30.7 MMOL/L (24-32); eCRCL 62 ML/MIN; eGFR 59 ML/MIN
[2025-03-27 12:34] LABS: URINE HCG NEGATIVE (NEG)
[2025-03-27 12:35] LABS: LEUKOCYTE ESTERASE ,URINE SMALL (Neg); NITRITES, URINE NEGATIVE (Neg); OCCULT BLOOD,URINE NEGATIVE (Neg)
[2025-03-27 12:39] LABS: URINE AMPHETAMINE SCREEN NEGATIVE (Neg); URINE BARBITUATE SCREEN NEGATIVE (Neg); URINE BENZODIAZEPINES SCREEN NEGATIVE (Neg); URINE CANNABINOID SCREEN NEGATIVE (Neg); URINE COCAINE SCREEN NEGATIVE (Neg); URINE METHADONE SCREEN NEGATIVE (Neg); URINE OPIATE SCREEN NEGATIVE (Neg); URINE PHENCYCLIDINE SCREEN NEGATIVE (Neg)
[2025-03-27 12:40] LABS: SQUAMOUS EPITHELIAL CELL,UR MANY /LPF (FEW); UA COLLECTION TYPE VOIDED
[2025-03-27] MEDS ORDERED: RIVA20TA PO (15:46)
[2025-03-27] MEDS ORDERED: HYDR-3686 PO (15:46)
[2025-03-27] MEDS ORDERED: DIVA500T9 PO (15:46)
[2025-03-27 17:14] LABS: VALPROATE 44 UG/ML (50-100)
[2025-03-27] MEDS: divalproex sod 250mg ER (24-hour) tablet PO SCH (20:30)
[2025-03-28] MEDS: BUPROPION HCL 150MG XL 24 HR 150 MG TAB PO SCH (07:13)
[2025-03-28 12:11] LABS: MEAN PLATELET VOLUME 8.6 FL (7.4-10.4); RED CELL DISTRIBUTION WIDTH 13.6 % (11.5-14.5)
[2025-03-28 12:27] LABS: CREATININE 1.17 MG/DL (0.40-0.90); TOTAL CARBON DIOXIDE 23.5 MMOL/L (24-32); eCRCL 50 ML/MIN; eGFR 46 ML/MIN
--- NOTE | 2025-03-28 12:39 | RADIOLOGY REPORT ---
CT CT HEAD Indication: seizure EXAM DATE: 03/28/2025 12:11 PM COMPARISON: None TECHNIQUE: CT of the head without intravenous contrast. RADIATION DOSE: CTDIvol: 70 mGy, DLP: 1350 mGy*cm FINDINGS: There is no intracranial hemorrhage. There is no extra-axial fluid, mass, mass effect or midline shift. The ventricles are midline and normal in size. Basilar cisterns are patent. Millan-white differentiation is maintained. The paranasal sinuses and mastoids are well-pneumatized. Imaged portion of the orbits are unremarkable. IMPRESSION: No intracranial hemorrhage or mass effect.
[2025-03-28 13:20] LABS: VALPROATE 30 UG/ML (50-100)
[2025-03-28] MEDS ORDERED: mag hydrox/Alum hydrox/simeth 30ml oral suspension PO PRN (14:25)
[2025-03-28] MEDS ORDERED: ondansetron/PF 4mg/2ml inj IV PRN (14:25)
[2025-03-28] MEDS ORDERED: magnesium Cl slow-release 64mg tablet PO PRN (14:25)
[2025-03-28] MEDS ORDERED: potassium Cl 20 mEq SR tablet PO PRN (14:25)
[2025-03-28] MEDS ORDERED: bisacodyl 10mg suppository rectal RC PRN (14:25)
[2025-03-28] MEDS ORDERED: magnesium hydroxide 30ml (MOM) UD suspension PO PRN (14:25)
[2025-03-28] MEDS ORDERED: potassium Cl 40MEQ/1/2NS 520ml 520 ML IV PRN (14:25)
[2025-03-28] MEDS ORDERED: magnesium sulf-water 4G/100mL 100 ML IV PRN (14:25)
[2025-03-28] MEDS ORDERED: magnesium sulf-water 2g/50mL 50 ML IV PRN (14:25)
[2025-03-28] MEDS: nicotine 14mg patch - 24hr TD SCH (15:32)
[2025-03-28] MEDS: CefTRIAXone 2gm/D5W 50ml BAG 50 ML IV SCH (15:32)
[2025-03-28] MEDS: normal saline 1000ml 1,000 ML IV SCH (15:33)
--- NOTE | 2025-03-28 15:43 | HISTORY AND PHYSICAL-Residence ---
History & Physical Providers to CC Resident Creating Document: JACLYN VERAS, RES CC: JULITA DOMINGUEZ MD ~ History of Present Illness Primary Medical Doctor: RIVERA Méndez Reason for Admit\Complaint: Altered loss of consciousness, seizure disorder, uti History of Present Illness HPI as per admitting physician: This is a 64-year-old female, who was 64-year-old female with a history of schizophrenia presents from [facility] for suspected psychosis. According to EMS patient was recently transported to [place] for psychiatric treatment and then was discharged yesterday and sent back to [facility]. [facility] evaluated patient and reports that she is unable to care for herself and is gravely disabled. They wrote a 5150 in and sent her via EMS to the ED. 64-year-old patient with complex history of schizophrenia and psychosis, patient was conscious and middle coherent, but could not give me any detailed history about what exactly happened. All the information I have received has been taken from ED physician and patient's previous admissions records. Patient apparently had at convulsion and was found on the bathroom floor- tonic clonic seizure, cyanotic and apneic, jaw thrusted successfully. Patient is a chronic smoker and smokes about 10 cigarettes a day Allergies: Coded Allergies: medroxyprogesterone (Verified Allergy, Intermediate, rash, 06/14/20) lithium (Unverified Allergy, Unknown, 06/14/20) Home Medications Home Medications Active Reported Xarelto (Rivaroxaban) 20 Mg Tablet 1 Tab PO HS with food Depakote ER* (Divalproex Sodium) 500 Mg Tab.sr.24h 1 Tab PO HS Wellbutrin Xl (Bupropion Hcl) 150 Mg Tab.sr.24h 1 Tab PO DAILY Atarax* (Hydroxyzine HCl) 25 Mg Tablet 1 Tab PO BID PRN Trazodone HCl 100 Mg Tablet 1 Tab PO HS Ventolin Hfa (Albuterol Sulfate) 90 Mcg Hfa.aer.ad 2 Puffs INH Q6H PRN Abilify* (Aripiprazole) 5 Mg Tablet 20 Mg PO DAILY Gabapentin 100 Mg Capsule 2 Cap PO TID Sertraline HCl 100 Mg Tablet 1 Tab PO DAILY Past Medical History Past Medical History History of DVT, Osteoarthritis, Chronic tobacco use Documented history of bipolar and schizophrenia Seizure disorder Past Surgical History Surgical History Comment Obtained from previous admission records: Right total knee arthroplasty by Dr. Isai Carter on 05/11/2021 colectomy and then colostomy placement, which was then reversed for small-bowel obstruction. Family History Family History: Alzheimer's disease MOTHER, Onset:Unknown Past Social History Social History Comment Patient is a chronic smoker and smokes about 10 cigarettes per day and has smoked for the last 20 years Patient does admit that she drinks alcohol, could not tell me how much Denies any drug use Alcohol Use: Occasionally Drug Use: Methamphetamine Lives In: Home ROS ROS ROS limited accuracy as patient continued to be in a confused and postictal state Constitutional: No fever, dizziness, weakness, no decrease in appetite HEENT: Normal vision. No sore throat, epistaxis, tinnitus Cardiovascular: No chest pain/discomfort, palpitations, syncope. no pitting pedal edema Respiratory: No sob,cough present,hemoptysis Gastrointestinal: No abdominal pain, nausea, vomiting. No diarrhea, melena. Obese abdomen Genitourinary: No frquency, urgency, incontinence, nocturia. No dysuria, hematuria Musculoskeletal: Normal, no pains Endocrine: No fatigue, polydipsia, polyuria. No heat or cold intolerance Neurologic: No headache, vertigo. No weakness, numbness or tingling of extremities Psychiatric: Hallucinations present, no anhedonia, no suicidal ideation Hematologic: No bruises Exam Vitals: Vital Signs Date Time Temp Pulse Resp B/P (MAP) Pulse Ox O2 Delivery O2 Flow Rate FiO2 03/28/25 12:43 80 18 137/68 (91) 93 1.0 03/28/25 05:16 97.8 General: General: Awake and oriented x 2, morbid obesity HEENT: Conjunctive are pink, sclerae clear, no icterus, pupil is equal in both sides, reactive to light, no ear discharge, no pharyngeal erythema or an edema. Neck: Supple, no JVD, no lymphadenopathy and thyromegaly. Chest: Decreased breath sounds bilaterally, associated with cough, no additional sounds no rhonchi no wheezing at the moment. Cardiovascular: S1-S2 regular sinus rhythm and, regular rate, no gallops, no rubs, no murmurs Abdomen: No visible peristalsis, Bowel sounds present on auscultation, soft, mild tenderness in the epigastrium, no guarding, no rigidity Extremities: No obvious deformities, no pitting edema bilaterally, capillary refill intact, peripheral pulsations are intact on both sides Central Nervous System: No focal neurological deficits, no motor or sensory weakness in all 4 extremities, could move all 4 extremities, 2+ deep tendon reflexes, negative Babinski. However full central nervous system examination could not be performed as patient was confused and possibly in postictal state Musculoskeletal: No joint swelling, deformities, inflammations, and no scoliosis and back tenderness Skin: Warm and dry. Dry oral mucosa. Diagnostic Data Last Recorded Lab Results: 03/28/25 1155 03/28/25 1155 Counseling Services Smoking & Tobacco Cessation: 3-10 Minutes (Advanced and counseled patient to stop smoking and explained adverse effects of smoking.) Advance Care Planning Advanced Care plannin - 30 Minutes (Spoke with the patient in detail about her advanced care planning, she told me she was alert and coherent and understood the advanced care planning and wanted to be a full code) Additional Plan Altered loss of consciousness History of Seizure disorder Patient apparently had a seizure found in the bathroom floor, noted to be tonic- clonic seizures Head CT was normal, blood glucose within normal range Plan EEG has been ordered Tele neurology consulted, awaiting recommendations Continue patient's home seizure medications Fall precautions and aspiration precautions in place Ordered bedside swallow test as well Urinary tract infection Patient's urinalysis reported small leukocyte esterase positive and urine WBCs 30-50 Initiated the patient on IV fluids at 100 mL/hour and ceftriaxone Urine cultures have been ordered Early CARMEN Patient's creatinine increased from 0.95-1.17, does not meet CARMEN criteria as less than 0.3 increase in baseline Continue to closely monitor the creatinine History of DVT Continue patient's home medication rivaroxaban 20 mg History of chronic tobacco use Initiated nicotine patch 14 mg Psychiatric conditions: Schizophrenia Schizoaffective disorder Continue patient's home medication divalproex 500 mg, sertraline 100 mg, bupropion HCl 150 mg, aripiprazole 5 mg and trazodone 100 mg Sitter has been ordered due to 5149 hold [address] Code Status: Full code DVT Prophylaxis: Eliquis Lines/Tubes: PIV Nutrition:Diet after patient passes swallow test PT:Yes Prognosis: Guarded Disposition: We will continue to monitor the patient, patient will undergo her EEG and tele neurology consultation today. Jaclyn Veras MD Internal medicine resident,PGY-1 Date of Service: Mar 28, 2025 Billing Provider: JULITA DOMINGUEZ MD Common Visit Codes: [id number] INP/OBS CARE (HIGH) Secondary Visit Codes: [id number] CARE PLAN 30 MINUTES JACLYN VERAS, RES Mar 28, 2025 15:43 JULITA DOMINGUEZ MD Mar 28, 2025 16:50
[2025-03-28 17:53] VITALS: BP 153/86; PULSE 83; RESP 16; TEMP 97.5; O2SAT 96
[2025-03-28 20:00] VITALS: RESP 19; O2SAT 93
[2025-03-28] MEDS ORDERED: heparin, porcine 5000 units/ml vial SQ SCH (20:00)
--- NOTE | 2025-03-28 20:51 | RADIOLOGY REPORT ---
EXAM: DI CHEST,TWO VIEWS CLINICAL HISTORY: Possible pneumonia TECHNIQUE: Frontal and lateral views of the chest WID: COMPARISON: None FINDINGS: Lines and tubes: None Chest: Cardiomegaly with borderline pulmonary vascular congestion. No pleural effusion, pneumothorax, or consolidation. The osseous structures are grossly intact. IMPRESSION: 1. Cardiomegaly with borderline pulmonary vascular congestion.
[2025-03-28 22:00] VITALS: BP 127/70; PULSE 92; RESP 16; TEMP 97.9; O2SAT 93
[2025-03-29 06:00] VITALS: BP 143/79; PULSE 81; RESP 22; TEMP 97.8; O2SAT 92
[2025-03-29 06:59] LABS: MEAN PLATELET VOLUME 8.4 FL (7.4-10.4); RED CELL DISTRIBUTION WIDTH 13.2 % (11.5-14.5)
[2025-03-29 07:42] LABS: CREATININE 0.95 MG/DL (0.40-0.90); TOTAL CARBON DIOXIDE 27.0 MMOL/L (24-32); eCRCL 62 ML/MIN; eGFR 59 ML/MIN
--- NOTE | 2025-03-29 09:46 | ELECTROCARDIOGRAPH REPORT ---
[facility] Test Date: 2025-03-28 Test Time: 11:47:16 Pat Name: EDILMA CARRERA Department: EMERGENCY ROOM Room: ORTHO 40[address] B Gender: F Hospital Admissions Clerk: : 1960 Requested By: JULITA DOMINGUEZ Order Number: [id number] Reading MD: Dr. Brando Madison Measurements Intervals [place] Rate: 109 P: -29 DC: 144 QRS: -46 QRSD: 124 T: 85 QT: 340 QTc: 458 Interpretive Statements Age not entered, assumed to be 49 years old for purpose of ECG interpretation Sinus tachycardia Left bundle branch block Baseline wander in lead(s) II,III,aVR,aVF Electronically Signed On 04-02-2025 21:46:[address] Brando Madison Please click the below link to view image of tracing.
[2025-03-29 10:00] VITALS: BP 121/61; PULSE 88; RESP 21; TEMP 98.1; O2SAT 94
--- NOTE | 2025-03-29 10:50 | PROGRESS NOTE- Residence ---
Progress Note - Resident Providers to CC Resident Creating Document: JOYCE VERAS RES CC: JULITA DOMINGUEZ MD ~ Antibiotic Timeout Antibiotic Ordered?: Yes Subjective Patient was seen and examined at bedside. Patient is possibly back to her baseline mentation, she does continues to have confusion and hallucinations which attributes to her chronic history of psychiatric condition. No other acute overnight symptoms noted Objective Vital Signs Date Time Temp Pulse Resp B/P (MAP) Pulse Ox O2 Delivery O2 Flow Rate FiO2 03/29/25 06:00 97.8 81 22 143/79 (100) 92 Room Air 03/28/25 12:43 1.0 Result Diagram: 03/29/2543 03/29/25 06 General: Awake and oriented x 2, morbid obesity HEENT: Conjunctive are pink, sclerae clear, no icterus, pupil is equal in both sides, reactive to light, no ear discharge, no pharyngeal erythema or an edema. Neck: Supple, no JVD, no lymphadenopathy and thyromegaly. Chest: Decreased breath sounds bilaterally, associated with cough, no additional sounds no rhonchi no wheezing at the moment. Cardiovascular: S1-S2 regular sinus rhythm and, regular rate, no gallops, no rubs, no murmurs Abdomen: No visible peristalsis, Bowel sounds present on auscultation, soft, mild tenderness in the epigastrium, no guarding, no rigidity Extremities: No obvious deformities, no pitting edema bilaterally, capillary refill intact, peripheral pulsations are intact on both sides Central Nervous System: No focal neurological deficits, no motor or sensory weakness in all 4 extremities, could move all 4 extremities, 2+ deep tendon reflexes, negative Babinski. Psychiatric: Patient has a chronic history of psychiatric disorders which includes schizophrenia and schizoaffective disorder Musculoskeletal: No joint swelling, deformities, inflammations, and no scoliosis and back tenderness Skin: Warm and dry. Dry oral mucosa. Advance Care Planning Advanced Care plannin - 30 Minutes Plan Plan Altered loss of consciousness History of Seizure disorder Patient apparently had a seizure found in the bathroom floor, noted to be tonic- clonic seizures Head CT was normal, blood glucose within normal range Patient is back to her baseline mentation, which includes a little bit of confusion and hallucinations which are attributes of her chronic psychiatric disorders Plan EEG has been ordered Tele neurology consulted, awaiting recommendations Continue patient's home seizure medications Fall precautions and aspiration precautions in place Patient passed bedside swallow test Urinary tract infection Patient's urinalysis reported small leukocyte esterase positive and urine WBCs 30-50 Continue the patient on IV fluids at 100 mL/hour and ceftriaxone Urine cultures pending Early CARMEN, resolved Patient's creatinine is back to her baseline after adequate fluids History of DVT Continue patient's home medication rivaroxaban 20 mg History of chronic tobacco use Continue nicotine patch 14 mg Psychiatric conditions: Schizophrenia Schizoaffective disorder Continue patient's home medication divalproex 500 mg, sertraline 100 mg, bupropion HCl 150 mg, aripiprazole 5 mg and trazodone 100 mg Sitter has been ordered due to 5150 hold [address] Code Status: Full code DVT Prophylaxis: Eliquis Lines/Tubes: PIV Nutrition: Heart healthy diet PT:Yes Prognosis: Guarded Disposition: Patient is medically cleared to be discharged, patient will now need clearance from [facility]. Joyce Veras MD Internal medicine resident,PGY-1 Date of Service: Mar 29, 2025 Billing Provider: JULITA DOMINGUEZ MD Common Visit Codes: [id number] INP/OBS CARE(HIGH) JOYCE VERAS, RES Mar 29, 2025 10:50 JULITA DOMINGUEZ MD Mar 30, 2025 17:27
[2025-03-29] MEDS: albuterol 2.5 MG/3 ML nebule NEB PRN (12:56)
[2025-03-29 13:05] VITALS: PULSE 101; RESP 20; O2SAT 95
[2025-03-29 13:10] VITALS: PULSE 100; RESP 20
--- NOTE | 2025-03-29 17:31 | [facility] CONSULT REPORT ---
[facility] Procedure Note [facility] Procedure Note Consult [facility] Note # Demographics Consult Type: General Neurology Patient Location: Inpatient First Name: Chichi Last Name: Suresh Date of : 1960 Age: 64 Gender: Female Facility: [facility] Time of Initial Page (): 03/29/2025 16:53 First Contact with Site (): 03/29/2025 16:54 # HPI History: 64y F with history of schizophrenia, DVT on Xarelto, seizures on Depakote who presented to the ER with psychosis and had witnessed generalized seizure. There is concern for possible ongoing seizure with staring spells # Exam Time of Exam (): 03/29/2025 17:20 Mental Status: - awake - follows commands - disoriented to time Language: - normal speech - no aphasia - dysarthria - tangential speech Cranial Nerves: - extra ocular movements intact - no facial droop - normal facial sensation Motor: - no drift Sensory: - normal sensation # Data Time Head CT personally read by me (): 03/29/2025 17:[address]: - no bleed - per radiologist read # Assessment Impression: - Seizure - Staring spells: seizure vs psychosis, on exam she exhibits tangential speech and grandiose thinking # Plan Diagnostic Test: - EEG to capture staring spells Medication: - Continue home depakote - Would consider stopping Wellbutrin as this is known to worsen seizures - If ongoing staring spells consider Vimpat 200mg IV dose once, would get EKG to ensure no QT prolongation DVT Prophylaxis: - SCD - chemical DVT prophylaxis Other: - If patient has any neurological deterioration please call me back immediately - seizure precautions - neurology referral as outpatient - No driving until follow up with local neurology - Psych consult Disposition: continue admission # Logistics Attestation of consult completion: The patient is located at: [facility]. Facility staff participated in the visit. I performed this telemedicine visit from my offsite office utilizing interactive 2 way audio and visual telecommunication technology at the request of the onsite inpatient provider. Consent: Verbal consent was obtained from the patient and/or family for this encounter. Total time spent in telemedicine encounter: I spent 18 minutes reviewing clinical data and/or imaging, obtaining history, examining the patient, communicating with the onsite care team, and in preparation of this report. # Demographics First Name: Chichi Last Name: Suresh Facility: [facility] Electronically signed at 03/29/2025 17:30 ([place] Time) by Thuy Hall DO Neuro Consult Order placed for: Yes THUY HALL DO Mar 29, 2025 17:31
[2025-03-29 18:00] VITALS: BP 138/72; PULSE 79; RESP 20; TEMP 97.5; O2SAT 96
[2025-03-29 18:50] LABS: URINE AMPHETAMINE SCREEN NEGATIVE (Neg); URINE BARBITUATE SCREEN NEGATIVE (Neg); URINE BENZODIAZEPINES SCREEN NEGATIVE (Neg); URINE CANNABINOID SCREEN NEGATIVE (Neg); URINE COCAINE SCREEN NEGATIVE (Neg); URINE METHADONE SCREEN NEGATIVE (Neg); URINE OPIATE SCREEN NEGATIVE (Neg); URINE PHENCYCLIDINE SCREEN NEGATIVE (Neg)
--- NOTE | 2025-03-29 19:01 | PROCEDURE NOTE ---
Procedure Note Providers to CC ~ Interpretation: Morgan EEG Note # Demographics Type of EEG Read: - Routine EEG - video Patient Location: Inpatient First Name: Chichi Last Name: Suresh Date of : 1960 Age: 64 Gender: Female Facility: [facility] Time of Initial Page (): 03/29/2025 18:39 First Contact with Site ( Time): 03/29/2025 18:40 # EEG Interpretation Start Time of EEG Read (): 03/29/2025 19:08 Stop Time of EEG Read (): 03/29/2025 19:29 Duration: 0h 21m Technical Details: - This study was recorded using the [employer] EEG software Indication: - seizure # Description Photic Stimulation: Performed Phases Captured: - awake - drowsy Symmetry: symmetric Posterior Dominant Rhythm: - present, attenuates on eye opening 8 Hz Amplitude: normal Reactivity: yes Variability: yes Continuity: continuous # Abnormalities Stimulation: - photic stimulation does NOT cause abnormalities Epileptiform Abnormalities: - NOT present Focal Slowing: no Seizure: - NOT present Artifact: Excessive muscle artifact # Impression Impression: normal # Clinical Correlation Clinical Correlation: A normal EEG does not exclude nor support the diagnosis of epilepsy. # Demographics First Name: Chichi Last Name: Suresh Facility: [facility] KATEY MCGEE MD Mar 29, 2025 19:01
[2025-03-29] MEDS: LACOSAMIDE 200mg/20ml inj. 200 MG in normal saline 100ml IV soln 100 ML IV ONE (21:54)
[2025-03-29 22:00] VITALS: BP 128/74; PULSE 84; RESP 16; TEMP 97.2; O2SAT 94
[2025-03-29] MEDS: potassium Cl 20 mEq SR tablet PO PRN (23:51)
[2025-03-30] VITALS (8 sets, daily range): BP systolic 129–165; BP diastolic 79–113; PULSE 73–95; RESP 16–20; TEMP 97.4–98.3; O2SAT 94–100
[2025-03-30 06:10] LABS: MEAN PLATELET VOLUME 8.8 FL (7.4-10.4); RED CELL DISTRIBUTION WIDTH 13.3 % (11.5-14.5)
[2025-03-30 06:37] LABS: CREATININE 0.99 MG/DL (0.40-0.90); TOTAL CARBON DIOXIDE 30.3 MMOL/L (24-32); eCRCL 59 ML/MIN; eGFR 56 ML/MIN
[2025-03-30 08:41] LABS: EOSINOPHILS % (MANUAL) 3.0 % (0-6); LYMPHOCYTES % (MANUAL) 11.0 % (21-51); MONOCYTES % (MANUAL) 16.0 % (2-12); NEUTROPHILS % (MANUAL) 70.0 % (42-75); PLATELET ESTIMATE NORMAL
[2025-03-30] MEDS ORDERED: NYST30CR28 TOP (12:23)
[2025-03-30] MEDS ORDERED: LACT1CAP26 PO (12:26)
[2025-03-30] MEDS ORDERED: CEFD300C3 PO (12:26)
--- NOTE | 2025-03-30 18:20 | PROGRESS NOTE- Residence ---
Progress Note - Resident Providers to CC Resident Creating Document: ALEC LACKEY RES ~ Antibiotic Timeout Antibiotic Ordered?: Yes Subjective Patient was seen and examined at bedside. Patient is possibly back to her baseline mentation. Per RN patient has episode of seizure. we examined the patient again in the evening and we do not think it is a seizure and it could be due to pseudoseizures or extrapyramidal symptom. Objective Vital Signs Date Time Temp Pulse Resp B/P (MAP) Pulse Ox O2 Delivery O2 Flow Rate FiO2 03/30/25 17:49 96 03/30/25 16:30 18 Room Air 0.0 03/30/25 16: 97 21 03/30/25 10:00 98.3 129/79 (96) Result Diagram: 03/30/25 0516 03/30/25 0516 General: Awake and oriented x 2, morbid obesity HEENT: Conjunctive are pink, sclerae clear, no icterus, pupil is equal in both sides, reactive to light, no ear discharge, no pharyngeal erythema or an edema. Neck: Supple, no JVD, no lymphadenopathy and thyromegaly. Chest: Decreased breath sounds bilaterally, associated with cough, no additional sounds no rhonchi no wheezing at the moment. Cardiovascular: S1-S2 regular sinus rhythm and, regular rate, no gallops, no rubs, no murmurs Abdomen: No visible peristalsis, Bowel sounds present on auscultation, soft, mild tenderness in the epigastrium, no guarding, no rigidity Extremities: No obvious deformities, no pitting edema bilaterally, capillary refill intact, peripheral pulsations are intact on both sides Central Nervous System: No focal neurological deficits, no motor or sensory weakness in all 4 extremities, could move all 4 extremities, 2+ deep tendon reflexes, negative Babinski. Psychiatric: Patient has a chronic history of psychiatric disorders which includes schizophrenia and schizoaffective disorder Musculoskeletal: No joint swelling, deformities, inflammations, and no scoliosis and back tenderness Skin: Warm and dry. Dry oral mucosa. Advance Care Planning Advanced Care plannin - 30 Minutes Plan Plan Acute Metabolic encephalopathy History of Seizure disorder Continue divalproex 500 mg PO HS. Ordered procalcitonin and creatinine kinase on 03/30/2025. Yesterday's total creatinine kinase is 233. Urinary tract infection Patient's urinalysis reported small leukocyte esterase positive and urine WBCs 30-50 Continue the patient on IV fluids at 50 mL/hour and ceftriaxone and we will change it to cefdinir while discharging to psychiatric facility Preliminary urine culture is negative Early CARMEN, resolved Hyponatremia Sodium is 132 Renal function endorses came back to baseline after adequate fluid resuscitation. Currently on IV normal saline at the rate of 50 mL/hour History of DVT Continue patient's home medication rivaroxaban 20 mg History of chronic tobacco use Continue nicotine patch 14 mg Psychiatric conditions: Schizophrenia Schizoaffective disorder Continue patient's home medication divalproex 500 mg, sertraline 100 mg, bupropion HCl 150 mg, aripiprazole 5 mg and trazodone 100 mg On 1798 Code Status: Full code DVT Prophylaxis: Rivaroxaban Lines/Tubes: PIV Nutrition: Heart healthy diet PT:Yes Prognosis: Guarded Disposition: Patient is medically cleared to be discharged. Pending [facility] to [facility] versus [facility] recommended facility. Alec Lackey m.d. Internal medicine resident, PGY 2 Date of Service: Mar 30, 2025 Billing Provider: JULITA DOMINGUEZ MD Common Visit Codes: [id number] INP/OBS CARE(HIGH) ALEC LACKEY, JOSEP Mar 30, 2025 18:20 JULITA DOMINGUEZ MD Mar 31, 2025 16:37
[2025-03-30] MEDS: diazepam 2mg tablet PO ONE (23:15)
[2025-03-31 00:48] VITALS: BP 186/74; PULSE 105; O2SAT 96
[2025-03-31 01:05] VITALS: BP 148/83; PULSE 90; RESP 18; TEMP 97.9; O2SAT 95
[2025-03-31 05:38] LABS: MEAN PLATELET VOLUME 8.5 FL (7.4-10.4); RED CELL DISTRIBUTION WIDTH 13.4 % (11.5-14.5)
[2025-03-31 06:00] VITALS: BP 137/86; PULSE 83; RESP 17; TEMP 97.6; O2SAT 95
[2025-03-31 06:00] LABS: CREATININE 0.98 MG/DL (0.40-0.90); TOTAL CARBON DIOXIDE 27.6 MMOL/L (24-32); eCRCL 60 ML/MIN; eGFR 57 ML/MIN
[2025-03-31 08:00] VITALS: RESP 18; O2SAT 95
[2025-03-31 08:30] VITALS: PULSE 88; RESP 16; O2SAT 94
[2025-03-31 10:00] VITALS: BP 141/91; PULSE 87; RESP 14; TEMP 98.1; O2SAT 97
--- NOTE | 2025-03-31 18:40 | DISCHARGE SUMMARY-Residence ---
Discharge Summary Providers to CC Resident Creating Document: JOYCE VERAS, JOSEP CC: JULITA DOMINGUEZ MD ~ Discharge Summary Admission Diagnosis: Seizure episode,psychiatric issues,possible UTI, acute kidney injury Hospital Course DATE OF ADMISSION: 03/28/25 DATE OF DISCHARGE: 03/31/25 Discharge Diagnosis\Comment: Acute Metabolic encephalopathy History of Seizure disorder Urinary tract infection Early CARMEN, resolved Hyponatremia History of DVT History of chronic tobacco use Operations\Procedures: None Consultants: Tele neurologist Complications: None Condition on DC: Stable for transfer New Medications: Cefdinir* (Cefdinir*) 300 Mg Capsule 1 CAP PO Q12H for 5 Days, #10 CAP Lactobacillus Rhamnosus (Culturelle) 10 Billion Cell Capsule 1 CAP PO BID for 30 Days, #30 CAP 0 Refills Nystatin (Nystatin) 100,000 Unit/Gram Cream..g. 1 APPLIC TOP Q12H for 7 Days, #30 GM 0 Refills apply to affected area(s) Continued Medications: Albuterol Sulfate (Ventolin Hfa) 90 Mcg Hfa.aer.ad 2 PUFFS INH Q6H PRN for wheezing, GM 0 Refills Aripiprazole* (Abilify*) 5 Mg Tablet 20 MG PO DAILY, TAB Bupropion Hcl (Wellbutrin Xl) 150 Mg Tab.sr.24h 1 TAB PO DAILY, TAB 0 Refills Divalproex ER* (Depakote ER*) 500 Mg Tab.sr.24h 1 TAB PO HS, TAB Gabapentin (Gabapentin) 100 Mg Capsule 2 CAP PO TID, CAP 0 Refills Hydroxyzine Hcl* (Atarax*) 25 Mg Tablet 1 TAB PO BID PRN for for anxiety/agitation, TAB Rivaroxaban (Xarelto) 20 Mg Tablet 1 TAB PO HS, TAB 0 Refills with food Sertraline HCl (Sertraline HCl) 100 Mg Tablet 1 TAB PO DAILY, TAB 0 Refills Trazodone HCl (Trazodone HCl) 100 Mg Tablet 1 TAB PO HS, TAB 0 Refills Discharge Summary: HPI as per admitting physician in the ED: This is a 64-year-old female, who was 64-year-old female with a history of schizophrenia presents from [facility] for suspected psychosis. According to EMS patient was recently transported to [place] for psychiatric treatment and then was discharged yesterday and sent back to [facility]. [facility] evaluated patient and reports that she is unable to care for herself and is gravely disabled. They wrote a 5150 in and sent her via EMS to the ED. Hospital course: 64-year-old patient with complex history of schizophrenia and psychosis, patient was conscious and middle coherent, but could not give me any detailed history about what exactly happened. All the information I have received has been taken from ED physician and patient's previous admissions records. Patient apparently had at convulsion and was found on the bathroom floor- tonic clonic seizure, cyanotic and apneic, jaw thrusted successfully. Patient's head CT was normal, but glucose within normal range. Patient was back to her baseline mentation. We continued patient's home seizure medications. Patient passed her bedside swallow test, fall and aspiration precautions were in place. Patient's urinalysis reported small leukocyte esterase positive and urine WBC 30 to 50, we treated the patient with fluids and ceftriaxone. Patient had mild elevation of creatinine which was back to her baseline after adequate fluids. Patient has a history of DVT so we continued her home medication rivaroxaban 20 mg. Patient has a history of chronic tobacco use we initiated the patient on nicotine patch 14 mg. Patient has a history of schizophrenia schizoaffective disorder we continued patient's home medication divalproex 500 mg, sertraline 100 mg, bupropion 150 mg,, aripiprazole 5 mg and trazodone 100 mg. Patient was medically cleared to be discharged. Physical examination the time of discharge General: Awake and oriented x 2, morbid obesity HEENT: Conjunctive are pink, sclerae clear, no icterus, pupil is equal in both sides, reactive to light, no ear discharge, no pharyngeal erythema or an edema. Neck: Supple, no JVD, no lymphadenopathy and thyromegaly. Chest: Decreased breath sounds bilaterally, associated with cough, no additional sounds no rhonchi no wheezing at the moment. Cardiovascular: S1-S2 regular sinus rhythm and, regular rate, no gallops, no rubs, no murmurs Abdomen: No visible peristalsis, Bowel sounds present on auscultation, soft, mild tenderness in the epigastrium, no guarding, no rigidity Extremities: No obvious deformities, no pitting edema bilaterally, capillary refill intact, peripheral pulsations are intact on both sides Central Nervous System: No focal neurological deficits, no motor or sensory weakness in all 4 extremities, could move all 4 extremities, 2+ deep tendon reflexes, negative Babinski. Psychiatric: Patient has a chronic history of psychiatric disorders which includes schizophrenia and schizoaffective disorder Musculoskeletal: No joint swelling, deformities, inflammations, and no scoliosis and back tenderness Skin: Warm and dry. Dry oral mucosa. Vital Signs Date Time Temp Pulse Resp B/P (MAP) Pulse Ox O2 Delivery O2 Flow Rate FiO2 03/31/25 10:00 98.1 87 14 141/91 (108) 97 Room Air 03/31/25 08:30 0 21 Laboratory Tests Test 03/30/25 05:16 03/30/25 19:50 03/31/25 05:01 03/31/25 12:58 White Blood Count 4.5 X10'3 5.0 X10'3 Red Blood Count 3.57 X10'6 3.69 X10'6 Hemoglobin 11.3 g/dl 11.8 g/dl Hematocrit 33.3 % 34.4 % Mean Corpuscular Volume 93.4 FL 93.2 FL Mean Corpuscular Hemoglobin 31.6 PG 31.9 PG Mean Corpuscular Hemoglobin Concent 33.8 g/dL 34.3 g/dL Red Cell Distribution Width 13.3 % 13.4 % Platelet Count 195 X10'3 216 X10'3 Mean Platelet Volume 8.8 FL 8.5 FL Neutrophils (%) (Auto) 64.1 % 56.8 % Lymphocytes (%) (Auto) 15.8 % 24.0 % Monocytes (%) (Auto) 16.8 % 14.6 % Eosinophils (%) (Auto) 2.7 % 4.0 % Basophils (%) (Auto) 0.6 % 0.6 % Neutrophils # (Auto) 2.9 X10'3 2.8 X10'3 Lymphocytes # (Auto) 0.7 X10'3 1.2 X10'3 Monocytes # (Auto) 0.8 X10'3 0.7 X10'3 Eosinophils # (Auto) 0.1 X10'3 0.2 X10'3 Basophils # (Auto) 0.0 X10'3 0.0 X10'3 CBC Comment Differential Total Cells Counted 100 Neutrophils % (Manual) 70.0 % Lymphocytes % (Manual) 11.0 % Monocytes % (Manual) 16.0 % Eosinophils % (Manual) 3.0 % Platelet Estimate Normal Red Blood Cell Morphology Normal Basophilic Stippling Sodium Level 132 MMOL/L 136 MMOL/L Potassium Level 3.8 MMOL/L 4.3 MMOL/L Chloride Level 96 MMOL/L 97 MMOL/L Carbon Dioxide Level 30.3 MMOL/L 27.6 MMOL/L Anion Gap 6 11 Blood Urea Nitrogen 9 MG/DL 9 MG/DL Creatinine 0.99 MG/DL 0.98 MG/DL Estimated GFR/1.73 m2 56 ML/MIN 57 ML/MIN BUN/Creatinine Ratio 9.1 9.2 Glucose Level 81 MG/DL 84 MG/DL Calcium Level 8.0 MG/DL 8.2 MG/DL Total Bilirubin 0.3 MG/DL 0.3 MG/DL Aspartate Amino Transf (AST/SGOT) 25 U/L 24 U/L Alanine Aminotransferase (ALT/SGPT) 32 U/L 27 U/L Alkaline Phosphatase 77 IU/L 81 IU/L Total Protein 6.2 G/DL 6.7 G/DL Albumin 2.8 G/DL 3.1 G/DL Globulin 3.4 G/DL 3.6 G/DL Albumin/Globulin Ratio 0.8 0.9 Chemistry Comments Total Creatine Kinase 196 U/L Procalcitonin < 0.05 NG/ML SARS-CoV-2 Antigen (Rapid) Negative Discharge advise FOLLOW UP WITH PRIMARY CARE PHYSICIAN IN 1 WEEK WITH CBC AND CMP. CONTINUE CEFDINIR 300 MG P.O. B.I.D. FOR 5 DAYS CONTINUE CULTURELLE 1 CAPSULE P.O. B.I.D. FOR 1 MONTH FOLLOW UP WITH NEUROLOGIST FOR SEIZURE MEDICATIONS. READ ADVERSE EFFECTS OF THE MEDICATIONS PRESCRIBED. CALL 911 OR VISIT ER IF EMERGENCY. *Problems/Diagnosis: (1) Seizure Status: Acute (2) Schizoaffective disorder Status: Acute (3) Psychiatric disorder Status: Acute (4) UTI (urinary tract infection) Status: Acute Total Time Spent on D/C: Up to 30 Minutes Counseling Services Smoking & Tobacco Cessation: 3-10 Minutes Date of Service: Mar 31, 2025 Billing Provider: JULITA DOMINGUEZ MD, JAHNAVI, RES Mar 31, 2025 18:37 JULITA DOMINGUEZ MD Apr 01, 2025 08:35
== END 2025-03-31 15:55 | DRG 100 ==
LOC: ER 10:44 → UNDOADMIN 03-28 13:15 → ED HOLD 03-28 13:15 → ORTHO 4S 03-28 17:40 → ED HOLD 03-28 17:40
PROVIDERS: ADMIT Internal Medicine; ATTEND Internal Medicine
PROC: 4A00X4Z Measurement of Central Nervous Electrical Activity, External Approach (ICD-10-PCS; principal; 2025-03-29)
DX: G40.909 Epilepsy, unspecified, not intractable, without status epilepticus (principal); G93.41 Metabolic encephalopathy; N17.9 Acute kidney failure, unspecified; N39.0 Urinary tract infection, site not specified; Z68.42 Body mass index [BMI] 45.0-49.9, adult; E66.01 Morbid (severe) obesity due to excess calories; F25.9 Schizoaffective disorder, unspecified; F29 Unspecified psychosis not due to a substance or known physiological condition; F15.90 Other stimulant use, unspecified, uncomplicated; Z20.822 Contact with and (suspected) exposure to COVID-19; J44.9 Chronic obstructive pulmonary disease, unspecified; Z88.8 Allergy status to other drugs, medicaments and biological substances; Z79.01 Long term (current) use of anticoagulants; Z79.899 Other long term (current) drug therapy; Z90.49 Acquired absence of other specified parts of digestive tract
CPT/HCPCS: 36415; 70450; 71046; 80048; 80053; 80164; 80305; 80320; 81001; 81025; 82550; 82948; 83605; 84145; 84443; 84450; 84460; 84484; 85007; 85025; 85651; 87040; 87081; 87088; 87811; 93005; 94640; 94760; 95816; 97116; 97161; 99291; C9254; G0378; J0696; J7030; Q0177